=== PATIENT | male | born 1945 | race Caucasian/White ===

== ENCOUNTER 2018-09-28 06:22 | Inpatient (IN) | payer MEDICARE, SELFPAY ==
[2016-10-16 15:37] VITALS: BMI 39.4
--- NOTE | 2018-09-05 23:55 | HP.PCM_ITS ---
History and Physical History and Physical Patient Name: Arnol Hanks : 1945 From: CAROLE POSADAS PA-C DATE OF SURGERY: 09/28/2018 SCHEDULED PROCEDURE: Right Total Hip Arthroplasty HISTORY OF PRESENT ILLNESS: Preoperative history and physical exam was performed on September 05, 2018. This is a 72-year-old male who has been having ongoing pain in his right hip for 1 year. There was no trauma or injury. Patient states he has increased pain with activities of daily living including going up and down stairs, walking, and sitting. He does have start up pain. He has difficult time when shopping. Pain does occasionally wake him at night. Patient has tried conservative measures consisting of rest, heat, elevation with only temporary relief. He has also been through childcare administrator. He has also tried iecy-zqz-vymjadi Tylenol with no significant relief. Patient has been using a cane due to the right hip pain. He denies previous surgeries. Patient does have medical history pertinent for hypertension and previous heart valve replacement in 2015. Patient currently denies chest pain, shortness of breath, fevers chills, recent infections. We are obtaining surgical clearance from his primary care physician and manual training teacher Dr. Lau. After failing conservative measures and discussing treatment options with Dr. Orlando Cruz, the patient would like to proceed with a right total hip arthroplasty. REVIEW OF SYSTEMS: ROS: Const: Denies change in appetite, fever and weight change. CV: Denies chest pain, heart murmur and irregular heartbeat. Resp: Denies cough, pneumonia, shortness of breath, tuberculosis and wheezing. GI: Denies constipation, diarrhea, heartburn, nausea, rectal itching, bloody stools and vomiting. : Denies incontinence. Musculo: Reports gait disturbance and trouble walking, but denies leg swelling, pain and weakness. Skin: Denies Raynaud's, history of shingles and tattoo. Neuro: Reports numbness/tingling but denies ambulatory dysfunction, dizziness and tremor. Psych: Denies anxiety, insomnia and stress. Gonzales/Lymph: Denies anemia, bleeding/bruising tendency and past transfusion. Reviewed, no changes. PAST MEDICAL HISTORY: Advance Care Plan: No Advance Directives Effective Date: 08/29/2018 PMH: Medical Problems: Cancer, High Blood Pressure, Hypercholesterolemia Accidents: Fracture - RT ANKLE Surgical Hx: Colon Resection - (2019) [facility] Heart Valve Replacement - (2015) [facility] RT Ankle Anesthesia Complications: None Assistive Devices: Glasses Reviewed and updated. SOCIAL HISTORY: SH: Marital: .Occupation: Retired.Work Status: Retired.Hand Dominance: Right- handed. Personal Habits: Cigarette Use: Never Smoked Cigarettes.Smokeless Tobacco: Never Used Smokeless Tobacco.E-Cigarette Use: Never used.Alcohol: Denies use.Drug Use: Denies Use.Enjoy Exercising: Daily. Reviewed, no changes. VITALS: Ht: 62.5 Wt: 218lb Wt k.885 BMI: 39.2 BP: 129/94 Pulse: 54 Resp: 18 T: 97.3 T: 36.3C ALLERGIES: No Known Drug Allergy MEDICATIONS: Aspirin 81 mg 1 tab PO daily, Atorvastatin Calcium 40 mg 1 tab PO qhs, Hydrochlorothiazide 25 mg 1/2 tab PO daily, Lisinopril 10 mg 1 tab PO daily, Metoprolol Tartrate 25 mg 1 tab PO bid, Tylenol Extra Strength 500 mg 1 tab PO daily PRE-OP EXAM: General appearance:NORMAL Other: Eyes: Conjunctivae and lids: NORMAL Pupils: ERR Ears, Nose, Mouth, and Throat: NORMAL Other: Inspection of lips, teeth and gums: NORMAL Other: Neck: Examination of neck: no masses noted. Respiratory: Assessment of respiratory effort: NORMAL Other: Auscultation of lungs: clear to auscultation no wheezes, rhonchi or rales. Cardiovascular: Auscultation of heart: regular rate and rhythm, no murmurs, gallops or rubs. Gastrointestinal: Exam of abdomen: soft, nontender, nondistended bowel sounds present. PHYSICAL EXAMINATION: Patient does walk with an antalgic gait. Patient also has bilateral hip manager fitness al rotation with ambulation. Right hip range of motion: Obligatory external rotation with flexion, flexion 50, internal rotation 15, external rotation 20. Pain is increased with internal and external rotation. 4/5 hip strength. Right lower extremity is 3 mm shorter when compared to the left. Sensation intact to light touch. Neurovascularly intact. IMAGING STUDIES: X-rays of the right hip reveal joint space narrowing with subchondral sclerosis, osteophyte formation consistent with severe osteoarthritis with collapse of the femoral head. IMPRESSION: 1. 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 Hypertension 3. Previous heart valve replacement 2014 4. History of colon cancer 5. Hypercholesterolemia PLAN: Dr. Orlando Cruz did discuss and review with the patient all treatment options including surgical versus nonsurgical options. Patient does wish to proceed with the above-stated procedure. Potential risks, benefits, and complications of the procedure were discussed in detail including but not limited to , infection, nerve and blood vessel damage, persistent pain, numbness, tingling, paresthesias, blood clot, pulmonary embolism, and requirement for possible further surgery. The patient expressed full understanding and has no further questions for the doctor. Patient does agree to proceed with the above-stated procedure and has signed the surgery consent form. This dictation was created using voice recognition software. Phonetic and/or grammatical errors may exist.. ___ I have re-examined the patient. There are no clinical changes since date of exam. ___ See progress notes for changes. ___ Dictated on admission Date: Time: Signature:
[2018-09-06 08:19] VITALS: BP 113/75; PULSE 61; RESP 16; TEMP 36.6; O2SAT 96; BMI 38.5
--- NOTE | 2018-09-06 08:43 | SDCEKG_ITS ---
Test Reason : Blood Pressure : / mmHG Vent. Rate : 056 BPM Atrial Rate : 056 BPM P-R Int : 166 ms QRS Dur : 102 ms QT Int : 458 ms P-R-T Axes : 028 -09 036 degrees QTc Int : 441 ms Sinus bradycardia Voltage criteria for left ventricular hypertrophy Abnormal ECG Confirmed by TREV BRUSH ([id number]), publications editor MICHA FERRARO ([id number]) on 09/08/2018 1:37:40 PM Referred By: Orlando Cruz Confirmed By:TREV BRUSH
[2018-09-06 09:51] LABS: Absolute Neutrophil Count 4.6 X10^3/uL (2.0-7.7); Basophil# 0.03 X10^3/uL; Basophil% 0.4 % (0-1); Eosinophil# 0.26 X10^3/uL; Eosinophils% 3.4 % (0-5); Hematocrit 46.1 % (40-54); Hemoglobin 14.4 g/dl (13.0-16.5); Lymphocyte % 25.2 % (19-41); Mean Corp Hgb Conc 31.2 g/gl (32-36); Mean Corpuscular Hgb 28.6 pg (27.0-32.0); Mean Corpuscular Volume 91.7 fL (80-94); Mean Platelet Vol. 10.3 fl (6.2-12.0); Monocyte# 0.76 X10^3/uL; Monocyte% 10.1 % (0-10); Neutrophil # 4.59 X10^3/uL (2.7-7.7); Neutrophil % 60.8 % (47-70); Platelet Count 225 K/mm3 (150-450); Red Blood Count 5.03 M/mm3 (4.6-6.2); White Blood Count 7.6 K/mm3 (4.4-11.0)
[2018-09-06 09:58] LABS: POSITIVE COUNT NO; POSITIVE DIFFERENTIAL NO; POSITIVE MORPHOLOGY NO
[2018-09-06 10:08] LABS: Anion Gap 6 (5-15); BUN 31 mg/dL (7-18); BUN/Creat Ratio 22.3 RATIO (10-20); Chloride 107 mmol/L (98-107); Creatinine, Serum 1.39 mg/dL (0.70-1.30); EST Glomerular Filtration Rate 54 mL/min (>60); Est Glom Filt Rate - Afr Amer 65 mL/min (>60); Glucose 99 mg/dL (74-106); Potassium 4.2 mmol/L (3.5-5.1); Sodium Level 142 mmol/L (136-145)
[2018-09-07 11:17] VITALS: BMI 38.2
[2018-09-28] VITALS (11 sets, daily range): BP systolic 93–122; BP diastolic 56–79; PULSE 68–88; RESP 16–18; TEMP 36.2–37.1; O2SAT 92–100; BMI 38.5
[2018-09-28] MEDS: Acetaminophen 500 MG Tablet 1000 MG PO ×3 (07:08→21:20)
[2018-09-28] MEDS: Gabapentin 600 MG Tablet PO (07:09)
[2018-09-28] MEDS: Scopolamine 1mg/72hr Patch 1 PATCH TRANSDERM. (07:09)
[2018-09-28 07:20] LABS: Bedside Glucose 105 mg/dL (70-110)
[2018-09-28] MEDS: Magnesium Sulfate 4gm/100mL 4 GM/100 ML IV.SOLN. IV (07:27)
[2018-09-28] MEDS: Lactated Ringers 1,000 ML 999 ML IV (07:27)
--- NOTE | 2018-09-28 08:45 | RAD_ITS ---
STUDY: X-RAY - PELVIS AND RIGHT HIP REASON FOR EXAM: Male, 72 years old. Anterior hip replacement. TECHNIQUE: 1 intraoperative fluoroscopic digital spot views of the pelvis and hip. COMPARISON: None. FINDINGS: Partially visualized right metallic hip arthroplasty. The peripheral aspect of the acetabular component is not included. Most of the femoral component of the right metallic hip arthroplasty is not included. The fluoroscopic spot radiograph is centered on the symphysis pubis. No suspicious abnormality of the symphysis pubis, the superior and inferior pubic rami and both ischial tuberosities. RAD/Hip 1 view with Pelvis IMPRESSION: 1. Limited digital spot radiograph centered on the symphysis pubis with partial cut off in the peripheral aspect of the right metallic hip prosthesis. 2. No suspicious acute abnormality. Electronically Signed: Morro Currie MD at 12:45 EDT , Service support ,
[2018-09-28] MEDS: Cefazolin 2 GM in 0.9% Normal Saline 100 ML IV (09:09)
--- NOTE | 2018-09-28 10:47 | PCM.OPRPT ---
Report of Operation Date of Procedure: 09/28/18 Pre-Operative Diagnosis: Right hip primary osteoarthritis Post-Operative Diagnosis: Right hip primary osteoarthritis Surgery/Procedure Performed:: Right hip minimally invasive direct anterior total hip replacement. Description of Surgical Findings:: Stable hip with equal leg lengths special education supervisor: Jessica Jiang Type of Anesthesia:: Spinal Anesthesiologist: Randal Lancaster Special Medications: 2 g Ancef, 1 g TXA at incision, 1 g TXA closure, 10 mg Decadron, joint cocktail (5 mg Duramorph, 30 mL of 0.5% Ropivicaine, 1000 units of epinephrine, 30 mg of Toradol) Specimen's removed: Bony cuts Estimated Blood Loss (mL): 200 Fluids Replaced: 1200 mL crystalloid Description of Procedure: Components used: 1. Accolade 2 [place] femoral stem size 4 127? 2. [place] trident 2 acetabular shell size 54 mm 3. Monica X3 polyethylene E 4. Monica Biolox delta 36mm, +2.5mm femoral head Brief history operative indications: 72 yo m who failed conservative measures for their hip osteoarthritis. X-rays were consistent with osteoarthritis including joint space narrowing, osteophyte formation and subchondral cysts. Total hip replacement was discussed with the patient with risks and benefits including but not limited to blood loss, DVTs, PEs, neurovascular damage, dislocation, general risks of anesthesia including loss of life. Patient demonstrated an understanding medical clearance is obtained the patient was consented for surgery. Procedure: On the date of procedure the patient's r hip was marked in the preoperative area. Patient was then taken back to the operating room where anesthesia assumed control of the C-spine and airway and administered anesthetic. Patient was transferred to the operating table and placed in the supine position. The hips were placed at the break of the bed and a sacral bump was placed. The r lower extremity was then prepped out in a sterile fashion using chlorhexidine while the surgeon scrubbed. The PA was vital in the positioning of the patient. Upon reentering the room the R lower extremity was draped in the standard orthopedic fashion and the incision was marked. A timeout was called and everyone agreed upon the side, the site, the procedure be performed, antibody given, and patient's identity. At this time incision was made through skin, subcutaneous tissue, and fat down to fascia. The fascia was then incised and the TFL was retracted laterally. A retractor was placed on the lateral border of the femoral neck. Attention was directed to the inferior portion of the approach and all crossing vessels were identified and appropriately coagulated. A retractor was then placed on the medial portion of the femoral neck. The anterior capsule was then cleared of all soft tissue and then H shaped capsulotomy was made. The retractors were then placed inside the capsule. The femoral neck was identified and a cleanup cut was made. At this time a power corkscrew was used to remove the femoral head. Attention was then turned toward the acetabulum where the soft tissues were appropriately retracted and the acetabulum was sequentially reamed to 54 mm. A 54 mm cup was then selected and impacted into place. Acetabular liner was impacted into place and locking mechanism was verified. The position of the acetabular cup was then verified under live fluoroscopy. Attention was then turned to the femur. Soft tissue releases on the medial and lateral femoral neck were appropriately done, the leg was externally rotated and lateralized. A Smith retractor was placed medially and proximally to the greater trochanter this allowed appropriate visualization and exposure of the femoral canal. Rongeour was then used to remove excess lateral bone. A canal finder and entry broach were used to open the proximal canal. Once we verified we were down the femoral canal we subsequently broached up to a size 5 femur. The appropriate neck was placed in the previously selected head was trialed with a -5 mm neck. Traction was pulled and the hip was reduced with internal rotation. Once it was appropriately reduced and stability was checked. There was minimal shuck, equal leg lengths and appropriate stability with hyperextension and external rotation as well as with 90? flexion and internal rotation. Fluoroscopy was then also used to verify the position of the components and leg lengths using the contralateral side for comparison. At this point based on malleoli and in fluoroscopy patient had leg length discrepancy. Hip was dislocated trial components were removed we then broached a 4 deeper and placed a 4 stem. We then trialed off for stem and a +2.5 gave us the greatest stability and leg lengths. The trial components were then dislocated the proximal femur was again exposed and the components were removed from the wound. The final components were verified and opened. The wound was copiously irrigated out with normal saline. The acetabulum was checked for any residual debris. The final components were placed and impacted. Traction and internal rotation were again used to reduce the hip. After adequate reduction the hip remained stable with appropriate leg lengths. The final components were once again checked with live fluoroscopy and were found to be satisfactory. The wound was then copiously irrigated with normal saline once more, and hemostasis was obtained. Closure was then done using #1 Vicryl runner to close the fascia. A 2-0 vicryl interuppted sutures were used to close the subcutaneous skin. A 3-0 Monocryl and Steri-Strips were used for final skin closure. A Silverlon dressing was placed. Patient was awakened by anesthesia and transferred to the [facility]. Patient was then transferred to the PACU for recovery. Postoperative plan: Patient will get 24 hours postop antibiotics. Patient will get in-house physical therapy and will be weight-bear as tolerated. Patient will follow up in office in 2 weeks for a wound check and x-rays. Grafts/Implants Used: [place] - Complications No intraoperative complications - Admit VTE Documentation VTE Present on Admission: No VTE Mechan Device Prophylaxis: SCD's, Thigh High CHRISTI Hose VTE Pharm Prophylaxis ordered?: Yes
--- NOTE | 2018-09-28 11:20 | RAD_ITS ---
STUDY: X-RAY - PELVIS AND RIGHT HIP REASON FOR EXAM: Male, 72 years old. Postop right hip arthroplasty. TECHNIQUE: 2 views of the pelvis and hip. COMPARISON: None. FINDINGS: Soft tissue swelling in the right hip with soft tissue air emphysema. This is postoperative. The iliac wings and most of the SI joints are not included. Normal bilateral superior and inferior pubic rami. Normal pubic symphysis. Normal bilateral ischial tuberosities. Right metallic hip arthroplasty. The acetabular and femoral components are in good anatomic alignment. Degenerative narrowing of the left hip joint. Ossific spur in the inferomedial aspect of the left femoral head. RAD/Hip Min 2 Views (Portable) IMPRESSION: 1. Normal right metallic hip arthroplasty. 2. Postoperative swelling with soft tissue air emphysema in the right hip. 3. Moderate degenerative osteoarthrosis of the left hip. Electronically Signed: Morro Currie MD at 12:57 EDT , Service support ,
[2018-09-28] MEDS: Lactated Ringers 1,000 ML 125 ML IV ×2 (12:10→19:20)
[2018-09-28] MEDS: Senna/Docusate Sodium 1 Tablet 2 TABLET PO ×2 (13:19→21:20)
[2018-09-28] MEDS: Famotidine 20 MG Tablet PO (13:19)
--- NOTE | 2018-09-28 13:41 | CON.PCM_ITS ---
Problem List (1) Status post total replacement of right hip Status: Acute (2) Colon cancer Status: Chronic (3) History of coronary artery bypass graft Status: Chronic Comment: RVG to Obtuse marginal Cx (4) History of aortic valve replacement Status: Chronic Comment: 29 mm Xin Snow valve, aortoplasty with bovine pericardial patch. (5) Hyperlipidemia Status: Chronic Qualifiers: Hyperlipidemia type: unspecified Qualified Code(s): E78.5 - Hyperlipidemia, unspecified (6) Atherosclerosis of coronary artery of [place] heart without angina pectoris Status: Chronic Qualifiers: Coronary Disease-Associated Artery/Lesion type: [place] artery Qualified Code(s): I25.10 - Atherosclerotic heart disease of [place] coronary artery without angina pectoris (7) Essential hypertension Status: Chronic Reason for Consult Date of Consultation: 09/28/18 Reason for Consultation: Postoperative medical management. History of Present Illness: The patient is a 72 year old M with past medical history as mentioned above who underwent elective right total hip replacement today and I am seeing this patient in consultation for postoperative medical management. At this time, patient mentioned that his right hip pain is mild, absent in severity, dull aching pain and manageable. He complains of bilateral foot tingling likely because of anesthesia. He denies chest pain or shortness of breath. Denies abdominal pain, nausea vomiting. He denies cough or sputum production. He denies fever or chills. He has history of CAD status post CABG in 2014 and he has been on aspirin, statins, beta-blockers and VINCE inhibitors and he has been stable. He has history of aortic valve replacement with bioprosthetic valve which also has been stable. He has history of recent diagnosis of colon cancer, status post colectomy back on May, at [facility], they were able to take the whole cancer and never received chemotherapy or radiation. At this time, his vital signs are stable. Preoperative routine blood work that was done on September 06, 2018 was remarkable for BUN of 31, creatinine of 1.39, otherwise normal. Past Medical History Past Medical History (Chronic Problems): Chronic Problems (Last Reviewed 09/07/18 @ 12:06 by Anderson Lau MD) Colon cancer (Chronic) 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 Hyperlipidemia (Chronic) Atherosclerosis of coronary artery of [place] heart without angina pectoris (Chronic) Essential hypertension (Chronic) Medical History: Medical History (Last Reviewed 09/07/18 @ 12:06 by Anderson Lau MD) Hyperlipidemia (Chronic) E78.5 Atherosclerosis of coronary artery of [place] heart without angina pectoris (Chronic) I25.10 Essential hypertension (Chronic) I10 Benign prostatic hyperplasia with lower urinary tract symptoms N40.1 Aortic stenosis I35.0 Severe aortic insufficiency I35.1 Allergies No Known Allergies Allergy (Verified 09/07/18 11:23) Home Medications: Ambulatory Orders Medication Instructions Recorded Atorvastatin Calcium [Lipitor] 40 mg PO QHS 10/16/16 lisinopril 10 mg tablet 10 mg PO DAILY 09/05/18 metoprolol tartrate 25 mg tablet 25 mg PO BID 09/05/18 aspirin 81 mg tablet,delayed 81 mg PO BID tab 09/07/18 release hydrochlorothiazide 25 mg tablet 12.5 mg PO DAILY tab 09/07/18 Surgical History: Surgical History (Last Reviewed 09/07/18 @ 12:06 by Anderson Lau MD) History of coronary artery bypass graft (Chronic) Onset Date: 06/14/14 Z95.1 RVG to Obtuse marginal Cx History of aortic valve replacement (Chronic) Onset Date: 06/14/14 Z95.2 29 mm Xin Snow valve, aortoplasty with bovine pericardial patch. History of open reduction and internal fixation (ORIF) procedure Z98.890 right ankle History of partial colectomy Onset Date: ~05/2018 Z90.49 Surgical History: colectomy, coronary bypass surgery Psychiatric History: No pertinent psych hx Lives: Spouse/ Significant Other Smoking Status: Never smoker Alcohol: None Drugs: None - *Family History Paternal Family History: Family History (Last Reviewed 09/07/18 @ 12:06 by Anderson Lau MD) Father Heart disease Brother Heart disease Brother Colon cancer History Items: Heart Disease Sibling Family History: Family History (Last Reviewed 09/07/18 @ 12:06 by Anderson Lau MD) Father Heart disease Brother Heart disease Brother Colon cancer History Items: Heart Disease Review of Systems Constitutional: Denies: Anorexia, Chills, Fever, Weakness Eyes: Denies: Blurred vision, Double vision, Drainage, Redness, Vision Change HEENT: Denies: Difficulty Hearing, Ear Pain, Eye Pain, Nasal Congestion, Sore Throat Cardiovascular: Denies: Chest Pain, Chest Pressure, Chest Tightness, Edema, Heaviness, Palpitations, Syncope Respiratory: Denies: Cough, Pleuritic Pain, Shortness of Breath, Sputum p roduction, Wheezing Gastrointestinal: Denies: Abdominal Pain, Constipation, Diarrhea, Nausea, Vomiting Genitourinary: Denies: Dysuria, Frequency, Hematuria Musculoskeletal: Reports: Joint Pain. Denies: Arm Pain, Back Pain, Foot Pain Skin: Denies: Dryness, Rash Neurological: Denies: Balance problems, Double vision, Change in Speech, Slurred speech, Confusion, Headaches, Incoordination Psychiatric: Denies: Anxiety, Depression Endocrine: Denies: Change in Body Habitus, Polydipsia, Polyuria Patient Problems: Active and Suspected Problems (Last Reviewed 09/07/18 @ 12:06 by Anderson Lau MD) Status post total replacement of right hip (Acute) - Physical Exam General: Alert, Oriented x3, Cooperative, No apparent distress HEENT: Atraumatic, PERRLA, EOMI, Normocephalic Oral: Moist Mucosa, No Gingival or Mucosal Lesions/ Ulcerations Neck: Supple, No JVD, Negative Carotid Bruits, Trachea Midline, Thyroid Normal Size and Texture Lungs: Clear to auscultation, Normal air movement, No rhonchi, No wheeze, No rales, Diminished Cardiovascular: Regular rate, Regular Rhythm, Normal S1, Normal S2, PMI Normal Abdomen: Bowel Sounds Present, Soft, Non Tender, Non-Distended, No Hepato- splenomegaly Extremities: No clubbing, No cyanosis, No edema Skin: No rashes, No breakdown Lymphatic: No Cervical, Supraclavicular, or Inguinal Adenopathy Neurological: Cranial nerves II-XII grossly intact, Motor Exam 5/5 strength throughout Psych/Mental Status: Normal Affect, Appropriate, Alert and oriented to time, place, person, mood and affect Vital Signs Temp Pulse Resp BP Pulse Ox 97.2 F L 79 16 100/67 100 09/28/18 12:32 09/28/18 12:32 09/28/18 12:32 09/28/18 12:32 09/28/18 12:32 Oxygen Flow Rate (L/min) 6 Oxygen Delivery Method Nasal Cannula Weight: 217 lb 13.067 oz Body Mass Index (BMI) 38.5 Intake and Output for Last 24 Hours 09/26/18 09/27/18 09/28/18 23:59 23:59 23:59 Intake Total 1900 / 1900 Balance 1900 / 1900 POC Glucose 09/28/18 07:13 POC Glucose 105 Assessment/Plan All Active Problems (Last Reviewed 09/07/18 @ 12:06 by Anderson Lau MD) Status post total replacement of right hip (Acute) This is a 72 years old male patient underwent elective right total hip replacement today and I am seeing this patient in consultation for postoperative medical management. #1 status post right total hip replacement: This was done for right hip osteoarthritis, postoperative day 0. Patient is on IV cefazolin for perioperative prophylaxis as well as IV fluids. He is on IV morphine and OxyIR PRN for pain. Preoperative routine blood work reviewed as above. Vital signs are stable. Orthopedic surgery is managing. #2 mild renal insufficiency: Unclear if this is acute or chronic. BUN and creatinine was 31 and 1.39 respectively on September 06, 2018. Creatinine was 1.44 on September,. Plan: Gentle IV fluids for hydration, repeat BMP tomorrow morning. #3 recent history of colon cancer status post colectomy: This was diagnosed back on May,, underwent colectomy at [facility] on May,. Did not receive any chemotherapy and radiation, informed that the whole cancer taken out and there was no indication for chemotherapy or radiation. #4 CAD status post CABG: Stable, no acute issues. Continue aspirin, statins, beta-blockers and VINCE inhibitors. #5 status post aortic valve replacement with bioprosthetic valve: Stable. #6 hypertension: Blood pressure stable, continue HCTZ, lisinopril and metoprolol. #7 hyperlipidemia: Continue statins. #9 DVT prophylaxis: Started on aspirin twice daily, SCDs. This note was generated with [employer] software. It may contain incorrect words, spelling, and punctuation that were not noted in checking the note before signing. Code Visit Inpatient E&M: 60134 Init Hosp L2
[2018-09-28] MEDS: Cefazolin 1 GM/50 ML BAG IV (16:50)
[2018-09-28] MEDS: Aspirin 81 MG TAB.CHEW PO (16:50)
[2018-09-28] MEDS: Atorvastatin Calcium 40 MG Tablet PO (21:20)
[2018-09-28] MEDS: Metoprolol Tartrate 25 MG Tablet PO (21:20)
[2018-09-29] MEDS: Cefazolin 1 GM/50 ML BAG IV (01:01)
[2018-09-29 03:09] VITALS: BP 96/57; PULSE 63; RESP 16; TEMP 36.6; O2SAT 95
[2018-09-29] MEDS: Acetaminophen 500 MG Tablet 1000 MG PO (05:56)
[2018-09-29 06:05] LABS: Hemoglobin 12.4 g/dL (13.0-16.5); Mean Corp Hgb Conc 31.8 g/dL (32-36); Mean Corpuscular Hgb 28.7 pg (27.0-32.0); Mean Corpuscular Volume 90.3 fL (80-94); Mean Platelet Vol. 9.9 fl (6.2-12.0); Platelet Count 171 K/mm3 (150-450); RBC Distribution Width CV 12.9 % (11.6-14.6); RBC Distribution Width SD 42.8 fl (35.1-43.9); Red Blood Count 4.32 M/mm3 (4.6-6.2); White Blood Count 14.6 K/mm3 (4.4-11.0)
[2018-09-29 06:31] LABS: Anion Gap 8 (5-15); BUN 34 mg/dL (7-18); BUN/Creat Ratio 23.8 RATIO (10-20); Calcium,Total 8.1 mg/dL (8.5-10.1); Chloride 107 mmol/L (98-107); Creatinine, Serum 1.43 mg/dL (0.70-1.30); EST Glomerular Filtration Rate 52 mL/min (>60); Est Glom Filt Rate - Afr Amer 63 mL/min (>60); Estimated Creatinine Clearance 38.68 ml/min; Glucose 139 mg/dL (74-106); Potassium 4.3 mmol/L (3.5-5.1); Sodium Level 141 mmol/L (136-145)
[2018-09-29 07:56] VITALS: BP 97/57; PULSE 67; RESP 16; TEMP 36.8; O2SAT 94
[2018-09-29] MEDS: Aspirin 81 MG TAB.CHEW PO (08:13)
--- NOTE | 2018-09-29 09:34 | PN.ORTHO_ITS ---
Patient Problems: Active and Suspected Problems (Last Reviewed 09/07/18 @ 12:06 by Anderson Lau MD) Status post total replacement of right hip (Acute) Subjective: The patient was sitting in bedside chair upon examination. Patient denies any chest pain, shortness of breath, dizziness, lightheadedness, nausea or vomiting, or calf pain. Pain is controlled on medications. No adverse overnight events. Overall patient is doing well and has tolerated therapy. Patient has had some lower readings of blood pressure but denies any chest pain, shortness of breath, dizziness lightheadedness. She tolerated physical therapy without any complaints. Objective: Vital signs stable and afebrile. Blood pressure currently 97/57 Patient is able to plantarflex and dorsiflex actively. Sensation is intact to light touch to saphenous, sural, superficial and deep peroneal, and tibial distribution. Dressing is clean dry and intact. Negative Homans bilaterally, negative signs and symptoms of DVT. - Physical Exam General: Alert, Oriented x3, No apparent distress Vital Signs Temp Pulse Resp BP Pulse Ox 98.2 F 67 16 97/57 L 94 09/29/18 07:56 09/29/18 07:56 09/29/18 07:56 09/29/18 07:56 09/29/18 07:56 Oxygen Flow Rate (L/min) 2 Oxygen Delivery Method Room Air Weight: 98.8 kg Body Mass Index (BMI) 38.5 Intake and Output for Last 24 Hours 09/27/18 09/28/18 09/29/18 23:59 23:59 23:59 Intake Total 3071 / 3071 1350 / 1350 Output Total 400 / 400 Balance 3071 / 3071 950 / 950 Laboratory Tests Past 24 Hrs 09/29/18 09/29/18 05:32 05:32 WBC 14.6 H RBC 4.32 L Hgb 12.4 L Hct 39.0 L MCV 90.3 MCH 28.7 MCHC 31.8 L RDW Std Deviation 42.8 RDW Coeff of Cristofer 12.9 Plt Count 171 MPV 9.9 Sodium 141 Potassium 4.3 Chloride 107 Carbon Dioxide 26.0 Anion Gap 8 BUN 34 H Creatinine 1.43 H Estim Creat Clear Calc 38.68 Est GFR (MDRD) Af Amer 63 Est GFR (MDRD) Non-Af 52 L BUN/Creatinine Ratio 23.8 H Glucose 139 H Calcium 8.1 L Medical Necessity - Tobacco Use Smoking Status: Never smoker Assessment/Plan All Active Problems (Last Reviewed 09/07/18 @ 12:06 by Anderson Lau MD) Status post total replacement of right hip (Acute) 1. S/P right total hip arthroplasty POD #1 2. Continue Pain Medications: Tylenol and OxyIR 3. DVT Prophylaxis: Aspirin 81 mg twice daily for 4 weeks postoperatively 4. PT/OT: Weightbearing as tolerated 5. H & H: 12.4/39.0, asymptomatic 6. Reactive leukocytosis: Currently 14.6, afebrile. Patient did receive Decadron intraoperatively 7. Continue postoperative medical management per medicine: We will hold blood pressure medications today and resume his normal medications tomorrow. Patient currently is asymptomatic and has tolerated physical therapy without any chest pain, shortness of breath, dizziness/lightheadedness. 8. Encouraged Incentive Spirometry 9. Disposition: Plan will be for discharge home today. Case was discussed with hospitalist. Prescriptions will be at attached to chart. Patient will follow- up per postop instructions. Case management will discuss with the patient possible home health. Patient has outpatient physical therapy established for October 03, 2018 but there were requesting home health therapy.
--- NOTE | 2018-09-29 09:43 | PN_ITS ---
Patient Problems: Active and Suspected Problems (Last Reviewed 09/07/18 @ 12:06 by Anderson Lau MD) Status post total replacement of right hip (Acute) Subjective: Patient seen and examined. He is postop day 1 right total hip replacement. He has no complaints and was working with physical therapy at time of review. Pain is well controlled. Review of systems is otherwise negative. Labs and vitals reviewed. He was noted to be slightly hypotensive this morning with blood pressure Tracey 97/57. Patient is however completely asymptomatic and says his blood pressure usually runs in the low 100s systolic. Vitals/I&O's: Vital Signs Temp Pulse Resp BP Pulse Ox 98.2 F 67 16 97/57 L 94 09/29/18 07:56 09/29/18 07:56 09/29/18 07:56 09/29/18 07:56 09/29/18 07:56 Oxygen Flow Rate (L/min) 2 Oxygen Delivery Method Room Air Weight: 217 lb 13.067 oz Body Mass Index (BMI) 38.5 Intake and Output for Last 24 Hours 09/27/18 09/28/18 09/29/18 23:59 23:59 23:59 Intake Total 3071 / 3071 1350 / 1350 Output Total 400 / 400 Balance 3071 / 3071 950 / 950 General: Alert, Oriented x3, Cooperative, No apparent distress HEENT: Atraumatic, PERRLA, EOMI, Normocephalic Oral: Moist Mucosa Neck: Supple, No JVD, Negative Carotid Bruits Lungs: Clear to auscultation, Normal air movement, No rhonchi, No wheeze, No rales Cardiovascular: Regular rate, Regular Rhythm, Normal S1, Normal S2, No murmurs Abdomen: Bowel Sounds Present, Soft, Non Tender, Non-Distended, No Hepato-sp lenomegaly Extremities: No clubbing, No cyanosis, No edema, Capillary Refill Less than 3 Seconds Skin: No rashes, No breakdown Musculoskeletal: No Tenderness to Palpation of Joints or Extremities, - - right hip surgical dressing is clean and intact. Lymphatic: No Cervical, Supraclavicular, or Inguinal Adenopathy Neurological: Cranial nerves II-XII grossly intact, Neuro grossly intact, Motor Exam 5/5 strength throughout Psych/Mental Status: Normal Affect, Appropriate, Alert and oriented to time, place, person, mood and affect Laboratory Results 09/29/18 05:32: WBC 14.6 H, RBC 4.32 L, Hgb 12.4 L, Hct 39.0 L, MCV 90.3, MCH 28.7, MCHC 31.8 L, RDW Std Deviation 42.8, RDW Coeff of Cristofer 12.9, Plt Count 171, MPV 9.9 09/29/18 05:32: Sodium 141, Potassium 4.3, Chloride 107, Carbon Dioxide 26.0, Anion Gap 8, BUN 34 H, Creatinine 1.43 H, Estim Creat Clear Calc 38.68, Est GFR (MDRD) Af Amer 63, Est GFR (MDRD) Non-Af 52 L, BUN/Creatinine Ratio 23.8 H, Glucose 139 H, Calcium 8.1 L Current Medications Acetaminophen (Tylenol) 1,000 mg PO Q8 [facility] Last Admin: 09/29/18 05:56 Dose: 1,000 mg Documented by: [facility], [facility]) [facility] Last Admin: 09/29/18 08:13 Dose: 81 mg Documented by: Atorvastatin Calcium (Lipitor) 40 mg PO QHS [facility] Last Admin: 09/28/18 21:20 Dose: 40 mg Documented by: Enteral Nutritional Formula (Ensure Surgery) 237 ml PO TIDCM [facility] Last Admin: 09/29/18 08:12 Dose: Not Given Documented by: Famotidine (Pepcid) 20 mg PO DAILY [facility] Last Admin: 09/28/18 13:19 Dose: 20 mg Documented by: Hydrochlorothiazide () 12.5 mg PO DAILY [facility] Insulin Human Lispro (Humalog Kwikpen (Bkc)) 1 - 6 unit SC Q4H PRN PRN; Protocol PRN Reason: BG>/= 180, SEE PROTOCOL Ketorolac Tromethamine (Toradol) 15 mg IV Q6H PRN PRN PRN Reason: MILD-MOD PAIN (-07/08) Stop: 09/30/18 06:45 Lisinopril (Zestril) 10 mg PO DAILY [facility] Metoprolol Tartrate (Lopressor (Beta Mikaela)) 25 mg PO BID [facility] Last Admin: 09/28/18 21:20 Dose: 25 mg Documented by: Morphine Sulfate () 2 - 4 mg IV Q2H PRN PRN PRN Reason: MOD-SEVERE PAIN (4-10/10) Morphine Sulfate () 2 - 4 mg IV Q2H PRN PRN PRN Reason: MOD-SEVERE PAIN (4-10/10) Ondansetron HCl (Zofran) 4 mg IV Q8H PRN PRN PRN Reason: NAUSEA Oxycodone HCl (Oxyir) 5 - 10 mg PO Q4H PRN PRN PRN Reason: MOD-SEVERE PAIN (4-10/10) Promethazine HCl (Phenergan) 12.5 mg IM Q6H PRN PRN; Protocol PRN Reason: NAUSEA/VOMITING Senna/Docusate Sodium (Senokot-S, Asha-Colace) 2 tablet PO BID [facility] Last Admin: 09/28/18 21:20 Dose: 2 tablet Documented by: Sodium Chloride () 10 - 40 ml IV UD PRN PRN Reason: SALINE FLUSH Medical Necessity - Tobacco Use Smoking Status: Never smoker Assessment/Plan All Active Problems (Last Reviewed 09/07/18 @ 12:06 by Anderson Lau MD) Status post total replacement of right hip (Acute) 1. Right hip arthritis s/p right total hip replacement * today is POD 1. * orthopedics on board * on IV morphine nad oxyIR for pain * PT./OT on board * incentive spirometry * on IV cefazolin per orthopedics * 2. CKD 3: Cr is 1.43, with baseline of ~ 1.2. WIll monitor 3. CAD s/p CABG: stable. on aspirin, statin. Also on metoprolol; this is held today o/a of mild asymptomatic hypotension. 4. History of recent colono cancer s/p colectomy * Was diagnosed in May 2018 and underwent colectomy at [facility] [place]. Did not receive chemoradiation as he was told that anticancer had been resected so he did not need it. * Stable. To follow-up with oncologist and surgeons at [facility] on discharge. * 5. Status post aortic valve replacement: Has a bioprosthetic valve in place: Stable. 6. Hypertension: * We will hold blood pressure medications today on account of mild hypotension though patient is asymptomatic. * On hydrochlorothiazide, lisinopril and metoprolol. * will dc hydrochlorthiazide for now. To continue metoprolol and lisinopril and follow with PCP for medication adjustment as needed. Orthopedics PA informed. 7. Hyperlipidemia: continue Statin. DVT prophylaxis: On aspirin 81 mg twice daily as per orthopedics. Disposition: OK for dc home today, from hospitalist standpoint. Code Visit Inpatient E&M: 78735 Subs Hosp L2
--- NOTE | 2018-09-29 09:45 | DCINST_ITS ---
Discharge Diet: No Restrictions Discharge Activity: May Not Drive - while taking narcotic pain medications. May shower in (days): 1 - Turn dressing away from water Ice area for (Minutes): 20 - Every 1-2 hours while awake Weight Bearing Status: Weight bearing as tolerated Elevate: Operative Extremity Additional Activity Instructions:: Wear elastic stockings for 2 weeks. DO NOT use alcohol with narcotic pain medication. DO NOT make important decisions while taking narcotic medication. If you have problems with taking your medication (rash, itching, nausea, etc.) call the office at once. Call your doctor if your incision/area has: Increased Pain/ Swelling, Increased Redness, Foul Smelling Discharge Call your doctor if you observe: Fever of 101 or Higher Remove Dressing in (days):: 4 - Okay to remove on October 03, 2018 Additional Instructions: Follow with orthopedics postop instructions No driving until 6 weeks postoperatively Hold blood pressure medications this afternoon, can resume normal medications tomorrow. Allergies/Adverse Reactions: Allergies No Known Allergies Allergy (Verified 09/07/18 11:23) Medications to take at Discharge Atorvastatin Calcium [Lipitor] 40 mg PO QHS 10/16/16 lisinopril 10 mg tablet 10 mg PO DAILY 09/05/18 metoprolol tartrate 25 mg tablet 25 mg PO BID 09/05/18 aspirin 81 mg tablet,delayed release 81 mg PO BID tab 09/07/18 hydrochlorothiazide 25 mg tablet 12.5 mg PO DAILY tab 09/07/18 Acetaminophen [Tylenol] 1,000 mg PO Q8 #100 tab 09/29/18 Oxycodone [Oxyir] 5 - 10 mg PO Q4H PRN PRN 4 Days #30 tab 09/29/18 Senna/Docusate Sodium [Senokot-S] 2 tab PO BID #20 tab 09/29/18 The following prescriptions were given: Oxycodone [Oxyir] 5 - 10 mg PO Q4H PRN PRN 4 Days #30 tab PRN Reason: Mod-Severe Pain (-12/08) Prescription Printed Senna/Docusate Sodium [Senokot-S] 2 tab PO BID #20 tab Prescription Printed Acetaminophen [Tylenol] 1,000 mg PO Q8 #100 tab Prescription Printed Primary Care Physician: Rukhsana Mayfield MD [Primary Care Provider] - Test Results: Test results from this visit will be discussed in further detail at your follow- up appointment, if applicable. Please Follow Up With: physical therapy When: 10/03/18 Please Follow Up With: Clemente Longoria PA-C When: 10/12/18 @ 9:00 am
--- NOTE | 2018-09-29 10:30 | CASEMGMT ---
NOLVIA YBARRA Face to Face with patient for initial transition planning/care coordination assessment. NOLVIA YBARRA introduced self and role at [facility]. Patient sitting in bed, alert and oriented. Patient willing to participate in assessment and is able to answer all questions appropriately. Care providers, pharmacy, and demographics verified. Patient wishes to discharge home, and would like [facility]. NOLVIA YBARRA updated patient that he would need to be homebound for [facility] and patient states that he would not be homebound. Patient is agreeable to outpatient therapy at [facility] that has already been setup for Wednesday. Patient states he has no further needs or concerns at this time. CM to follow for discharge planning needs that may arise. PCP: Tran Specialists: Kati Cruz Pharmacy: [facility] Insurance: [employer] [facility] Prescription Benefit: yes Living Will/HPOA: yes, Penelope Hanks LNOK: , daughter Living Arrangements: Patient lives with in ranch style home with no steps to enter the home. Patient was independent prior to surgery Transportation: or daughter DME/HHC: Patient he has shower chair, raised toilet seat, and walker at home. Patient has outpatient therapy at [facility] scheduled for Wednesday10/03/18 Disposition Plan: Patient to discharge home with family support, outpatient therapy, and follow-up plans in place. Ning NUÑEZ, RN, CM
[2018-09-29 10:51] VITALS: BP 103/59; PULSE 61
[2018-09-29] MEDS: Senna/Docusate Sodium 1 Tablet 2 TABLET PO (10:52)
[2018-09-29] MEDS: Famotidine 20 MG Tablet PO (10:52)
[2018-09-29 13:33] VITALS: BP 111/59; PULSE 63; RESP 16; TEMP 36.6; O2SAT 93
== END 2018-09-29 13:55 | disposition home health service (06) | DRG 470 ==
LOC: ACINP 09:22 → MS3 09:28
PROVIDERS: Admitting Provider Specialist; Family Provider Internal Medicine; PCP Internal Medicine; Referring Provider Specialist; Visit Provider Student in an Organized Health Care Education/Training Program
PROC: 0SR90JZ Replacement of Right Hip Joint with Synthetic Substitute, Open Approach (ICD-10-PCS; CPT 27284; principal; 2018-09-28 08:20)
DX: M16.11 Unilateral primary osteoarthritis, right hip (principal); I12.9 Hypertensive chronic kidney disease with stage 1 through stage 4 chronic kidney disease, or unspecified chronic kidney disease; N18.3 Chronic kidney disease, stage 3 (moderate); I25.10 Atherosclerotic heart disease of native coronary artery without angina pectoris; I35.2 Nonrheumatic aortic (valve) stenosis with insufficiency; E78.5 Hyperlipidemia, unspecified; I95.9 Hypotension, unspecified; N40.1 Benign prostatic hyperplasia with lower urinary tract symptoms; Z79.82 Long term (current) use of aspirin; Z79.899 Other long term (current) drug therapy; Z85.038 Personal history of other malignant neoplasm of large intestine; Z95.3 Presence of xenogenic heart valve; Z95.1 Presence of aortocoronary bypass graft; Z90.49 Acquired absence of other specified parts of digestive tract
CPT/HCPCS: 36415; 73501; 73502; 76000; 80048; 82962; 85025; 85027; 87081; 93005; 97116; 97162; 97166; 97530; 99251; C1776; J7120; G0463

== ENCOUNTER → 2019-04-19 05:25 | Outpatient (CLI) | payer MEDICARE, SELFPAY ==
[2019-03-29 13:07] VITALS: BMI 40.4
--- NOTE | 2019-04-19 05:26 | ECHOCS_ITS ---
Reason For Study: Dizziness, s/p AVR, CABG Procedure This was a 2D Doppler, Color Flow transthoracic echocardiogram. The study was technically difficult. Contrast injection was performed. Exam performed in department. Left Ventricle Normal LV size. The estimated ejection fraction is 65 %. Unable to assess diastolic dysfunction. No regional wall motion abnormalities noted. Right Ventricle Normal RV size. Normal systolic function. Atria Normal left atrium. Normal right atrium. No doppler evidence for ASD. Mitral Valve There is moderate mitral annular calcification. There is no mitral valve stenosis. No mitral valve insufficiency. Tricuspid Valve There is no tricuspid stenosis. Trivial tricuspid valve insufficiency. Pulmonary artery systolic pressure is 25-30 mmHg. Aortic Valve The aortic valve is not well visualized. There is no aortic stenosis. No aortic valve insufficiency. Pulmonic Valve There is no pulmonic valvular stenosis. No pulmonic valve insufficiency identified. Great Vessels Normal aortic root. Pericardium/Pleural No pericardial effusion. Medication Diluted definity 3ml given slow IV push to enhance endocardial definition. MMode/2D Measurements & Calculations LVIDd: 4.2 cm IVSd: 1.4 cm LVOT diam: 2.0 cm LVIDs: 2.8 cm LVPWd: 1.3 cm RVDd: 4.1 cm FS: 32.5 % LVOT area: 3.2 cm2 Ao root diam: 3.8 cm LAV(MOD-bp): 38.0 ml LA A4 area: 15.4 cm2 LAV(MOD-bp) Indexed: 18.7 ml/m2 LAV(MOD-sp2): 34.2 ml LAV(MOD-sp4): 33.6 ml LA dimension(2D): 4.0 cm RA A4 area: 13.4 cm2 Doppler Measurements & Calculations MV E max dominic: 64.6 cm/sec Lat Peak E' Dominic: 5.7 cm/sec Med Peak E' Dominic: 4.1 cm/sec MV A max dominic: 87.3 cm/sec E/E' lat: 11.4 E/E' med: 15.6 MV E/A: 0.74 Ao V2 max: 157.3 cm/sec LV V1 max: 80.4 cm/sec SV(LVOT): 51.8 ml Ao max P.9 mmHg LV V1 max P.6 mmHg Ao V2 mean: 102.7 cm/sec LV V1 mean P.5 mmHg Ao mean P.9 mmHg LV V1 mean: 60.1 cm/sec Ao V2 VTI: 31.0 cm LV V1 VTI: 16.1 cm JUVENAL(I,D): 1.7 cm2 JUVENAL(V,D): 1.6 cm2 PA V2 max: 74.0 cm/sec Interpretation Summary The study was technically difficult. Contrast injection was performed. The estimated ejection fraction is 65 %. Unable to assess diastolic dysfunction. Trivial tricuspid valve insufficiency. The study was technically difficult. Contrast injection was performed. Ordering Physician: Anderson Lau Referring Physician: Rukhsana Mayfield Performed By: Kristen Barragan, RDCS, RVT
--- NOTE | 2019-04-20 11:19 | STRESSREP ---
Stress Test Report Date: 04/20/2019 Procedure: Exercise tolerance test/imaging study Indications: Dizziness Consent: Per the patient Procedure: The patient exercised on a Mo protocol for 6 minutes achieving a peak heart rate of 125 bpm (83 % predicted maximal heart rate) with a peak blood pressure 174/84 mmHg and a peak MET capacity of 7 METs. The baseline ECG demonstrated [normal sinus rhythm, nonspecific ST-T changes, occasional PVCs]. The peak exercise ECG demonstrated sinus tachycardia, occasional PVCs, about [address] depression in lead II. EKG during recovery revealed no significant ischemic changes [There were no significant cardiac dysrhythmias pretest, during exercise, or recovery]. The functional capacity was considered normal for age. There was [no complaint of chest discomfort during exercise or recovery]. The examination was discontinued secondary to dyspnea. Impression: 1. Technically adequate (percent predicted maximal heart rate greater than 85%) exercise tolerance test 2. Stress test is negative for exercise-induced EKG changes of ischemia 3. The test test is negative for exercise-induced chest pain 4. Functional capacity is normal for age 5. Nuclear images pending Myocardial perfusion imaging study: Technique: The patient was injected with 15 mCi of technetium 99m Cardiolite and subsequently rest SPECT Cardiolite nuclear imaging was obtained in the horizontal long, vertical long, and short axis views. The patient exercised on a Mo protocol. Please see above for details. The patient was injected with 45 mCi of technetium 99m Cardiolite and subsequently stress SPECT Cardiolite nuclear imaging was obtained in the horizontal long, vertical long, and short axis views. A gated Cardiolite study at peak stress was obtained. Interpretation: Rest and stress SPECT Cardiolite nuclear imaging status post realignment, normalization, and attenuation correction, demonstrates overall normal myocardial radioisotope uptake. Gating was not done. EF could not be estimated. Impression: 1. There is no evidence of significant ischemia or infarction. 2. Gating was not performed and EF cannot be estimated. This note was generated with [employer] software. It may contain incorrect words, spelling, and punctuation that were not noted in checking the note before signing.
== END ==
PROVIDERS: PCP Internal Medicine; Referring Provider Specialist; Visit Provider Specialist
DX: I25.10 Atherosclerotic heart disease of native coronary artery without angina pectoris (principal); I10 Essential (primary) hypertension; R42 Dizziness and giddiness; Z95.1 Presence of aortocoronary bypass graft
CPT/HCPCS: 78452; 93017; 93306; A9500; Q9957; A4216; C8929

== ENCOUNTER → 2019-04-26 13:49 | Outpatient (CLI) | payer MEDICARE, SELFPAY ==
[2019-04-26 13:07] VITALS: BMI 41.4
[2019-04-26 15:06] LABS: Absolute Neutrophil Count 4.8 X10^3/uL (2.0-7.7); Basophil# 0.06 X10^3/uL; Basophil% 0.7 % (0-1); Eosinophil# 0.25 X10^3/uL; Eosinophils% 3.1 % (0-5); Hematocrit 49.6 % (40-54); Hemoglobin 15.6 g/dL (13.0-16.5); Lymphocyte % 25.7 % (19-41); Mean Corp Hgb Conc 31.5 g/dL (32-36); Mean Corpuscular Hgb 28.6 pg (27.0-32.0); Mean Corpuscular Volume 90.8 fL (80-94); Mean Platelet Vol. 10.4 fl (6.2-12.0); Monocyte# 0.91 X10^3/uL; Monocyte% 11.1 % (0-10); NRBC Flagged by Analyzer 0 % (0-5); Neutrophil # 4.84 X10^3/uL (2.7-7.7); Neutrophil % 59.2 % (47-70); Platelet Count 187 K/mm3 (150-450); RBC Distribution Width CV 13.4 % (11.6-14.6); RBC Distribution Width SD 44.7 fl (35.1-43.9); Red Blood Count 5.46 M/mm3 (4.6-6.2); White Blood Count 8.2 K/mm3 (4.4-11.0)
== END ==
PROVIDERS: PCP Internal Medicine; Referring Provider Specialist; Visit Provider Specialist
DX: R06.09 Other forms of dyspnea (principal)
CPT/HCPCS: 36415; 84443; 85025

== ENCOUNTER 2019-12-20 09:38 | Emergency (ER) | payer MEDICARE, SELFPAY ==
[2019-04-26 13:07] VITALS: BMI 41.4
[2019-12-20 09:39] VITALS: BP 148/100; PULSE 62; RESP 17; TEMP 36.5; O2SAT 96; BMI 44.2
--- NOTE | 2019-12-20 10:32 | ED.VISSUMM ---
- ER Visit Summary Date of Service: 12/20/19 Chief Complaint: Atraumatic right ankle pain for 3 weeks History of Present Illness: The patient is a 74 M Struve hypertension, valvular heart disease prior prostate cancer and prior colon cancer. Patient in had a bad injury to his right ankle where he needed 3 screws placed for ankle fracture. 2 of the screws were eventually removed one remains in place. He denies any new fall or new trauma. He denies any redness, fever or chills. Just states of the last 3 weeks he has had increased pain to his right ankle. A year ago he had his right hip replaced and states that has been going well. Physical Examination: Older male presents with distress vital signs stable afebrile. H EENT exam unremarkable. Lungs are clear. Heart regular rhythm no murmur. Abdomen soft nontender. Normal bowel sounds no peritoneal signs. Patient is moving all 4 extremities. Neurovascularly intact. Calves are nontender without edema. Right ankle is mildly swollen. DP pulse intact. Is able to wiggle his toes. Dorsi plantarflexion intact. No cellulitis. No signs of septic joint. Achilles tendon is intact. Right calf nontender. He is able to flex and extend his right knee hip and ankle. No gross bony deformity. Neurologically is awake and alert with no focal motor deficits. Test Results: Right ankle x-ray 3 views read by myself the photovoltaic solar cell designer shows a orthopedic screw in place. Significant degenerative arthritis of the joint but no acute fracture or dislocation. Mild soft tissue swelling. Emergency Department Course and Treatment: Acute on chronic and right ankle pain. But the prior injury 20 to 30 years ago and surgery. No signs of infection. Treatment Plan: Ice and elevate. Tylenol for pain. Limited Motrin for swelling. Follow-up with PCP. Disposition: dc Impression: Acute right ankle pain and swelling secondary to degenerative arthritis History of prior ankle fracture with orthopedic repair This note was generated with [employer] dictation software. It may contain incorrect words, spelling, and punctuation that were not noted in review of the chart prior to signing ED Disposition - Plan for ED Patient: Referrals: Rukhsana Mayfield MD [Primary Care Provider] -
--- NOTE | 2019-12-20 10:40 | RAD_ITS ---
STUDY: X-RAY - RIGHT ANKLE REASON FOR EXAM: Male, 74 years old. INCREASING RT ANKLE PAIN X 2-3 WKS, INJURY/SURGERY 30 YEARS AGO TECHNIQUE: 3 view(s) of the ankle. COMPARISON: None. FINDINGS: Screw fixation of the distal tibia. Normal medial and lateral malleoli. Joint space narrowing and degenerative changes of the tibiotalar joint. Small plantar spur. The visualized subtalar, talonavicular, calcaneocuboid and tarsal articulations are normal. Mild soft tissue swelling. RAD/Ankle min 3 Views IMPRESSION: Status post screw fixation of the distal tibia with degenerative changes and joint space narrowing of the distal tibial talar joint. Mild degree of soft tissue swelling. Electronically Signed: Leonard Hollingsworth, at 10:56 EDT , Service support ,
--- NOTE | 2019-12-20 12:23 | ED.DEP ---
ED Disposition - Plan for ED Patient: Disposition: Home or Assisted Living Instructions: ED Osteoarthritis Referrals: Rukhsana Mayfield MD [Primary Care Provider] - As soon as possible Additional Instructions: Your pain is secondary to arthritis in your ankle. Ice and elevate it. Tylenol for pain. Limited Motrin ibuprofen twice a day to help with inflammation. Return emergency department if fever or redness. Follow-up with your orthopedic doctor Dr. Jason Cruz for further evaluation and discussion of other treatment options.
== END 2019-12-20 12:59 | disposition home or self-care (01) ==
PROVIDERS: Emergency Provider Emergency Medicine; PCP Internal Medicine
DX: M19.071 Primary osteoarthritis, right ankle and foot (principal); G89.29 Other chronic pain; I10 Essential (primary) hypertension; Z79.82 Long term (current) use of aspirin; Z79.899 Other long term (current) drug therapy; Z85.46 Personal history of malignant neoplasm of prostate; Z85.038 Personal history of other malignant neoplasm of large intestine; Z96.641 Presence of right artificial hip joint
CPT/HCPCS: 73610; 99282

== ENCOUNTER 2020-03-15 17:35 | Inpatient (IN) | payer MEDICARE, SELFPAY ==
[2020-01-30 13:07] VITALS: BMI 45.5
[2020-03-15] VITALS (12 sets, daily range): BP systolic 122–158; BP diastolic 76–104; PULSE 46–92; RESP 16–24; TEMP 36.6–36.9; O2SAT 95–100; BMI 45.3; BMI 110.8; BMI 44.6
--- NOTE | 2020-03-15 17:45 | EKG12_ITS ---
Test Reason : SOB Blood Pressure : / mmHG Vent. Rate : 074 BPM Atrial Rate : 074 BPM P-R Int : 140 ms QRS Dur : 092 ms QT Int : 434 ms P-R-T Axes : -09 -14 113 degrees QTc Int : 481 ms Sinus rhythm with frequent Premature ventricular complexes in a pattern of bigeminy Voltage criteria for left ventricular hypertrophy T wave abnormality, consider lateral ischemia Abnormal ECG Confirmed by LOS CALDERA, XIOMARA ([id number]), editor department MARQUES JUDGE ([id number]) on 03/20/2020 6:42:09 AM Referred By: DR PRINCE Confirmed By:XIOMARA MADISON MD
[2020-03-15 18:46] LABS: Absolute Lymphocyte Count 1.95 X10^3/uL (0.83-4.51); Absolute Neutrophil Count 4.4 X10^3/uL (2.0-7.7); Basophil# 0.04 X10^3/uL; Basophil% 0.5 % (0-1); Eosinophil# 0.21 X10^3/uL; Eosinophils% 2.8 % (0-5); Hematocrit 50.3 % (40-54); Hemoglobin 16.2 g/dL (13.0-16.5); Lymphocyte # 1.95 X10^3/ul (4.0); Mean Corp Hgb Conc 32.2 g/dL (32-36); Mean Corpuscular Hgb 30.3 pg (27.0-32.0); Mean Corpuscular Volume 94.2 fL (80-94); Mean Platelet Vol. 10.4 fl (6.2-12.0); Monocyte# 0.89 X10^3/uL; Monocyte% 11.9 % (0-10); NRBC Flagged by Analyzer 0 % (0-5); Neutrophil # 4.37 X10^3/uL (2.7-7.7); Neutrophil % 58.4 % (47-70); Platelet Count 185 K/mm3 (150-450); RBC Distribution Width CV 12.7 % (11.6-14.6); RBC Distribution Width SD 43.6 fl (35.1-43.9); Red Blood Count 5.34 M/mm3 (4.6-6.2); White Blood Count 7.5 K/mm3 (4.4-11.0)
--- NOTE | 2020-03-15 19:00 | RAD_ITS ---
STUDY: X-RAY CHEST REASON FOR EXAM: Male, 74 years old. sob x 1 month TECHNIQUE: Single AP portable view of the chest. COMPARISON: 10/16/2016. FINDINGS: The lungs are clear and expanded. There is no demonstrated pleural abnormality. Normal size heart. Sternotomy wires are present. Normal mediastinum and charlie. Normal visualized pulmonary arteries. Normal visualized aortic arch and descending thoracic aorta. Normal visualized thoracic spine. Normal visualized ribs, clavicles, and shoulders. There is no demonstrated abnormality of the visualized soft tissue structures of the upper abdomen. RAD/Chest 1 View (Portable) IMPRESSION: Normal x-ray examination of the chest. Electronically Signed: Rahel Dobbs MD at 19:37 EST Tel , Service support ,
[2020-03-15 19:26] LABS: Anion Gap 3 (5-15); BUN 30 mg/dL (7-18); BUN/Creat Ratio 22.6 RATIO (10-20); Chloride 113 mmol/L (98-107); Creatinine, Serum 1.33 mg/dL (0.70-1.30); EST Glomerular Filtration Rate 56 mL/min (>60); Est Glom Filt Rate - Afr Amer 68 mL/min (>60); Estimated Creatinine Clearance 38.77 ml/min; Glucose 81 mg/dL (74-106); Potassium 4.5 mmol/L (3.5-5.1); Sodium Level 142 mmol/L (136-145); Thyroid Stim Hormone (TSH) 2.34 uIU/mL (0.358-3.74)
--- NOTE | 2020-03-15 20:40 | ED.DCSUM_ITS ---
- ER Visit Summary Date of Service: 03/15/20 Chief Complaint: Shortness of breath History of Present Illness: The patient is a [address] Mayfield and Dr. Lau. He reports that he has a history of an aortic valve replacement is not on anticoagulants. He has shortness of breath began 2 to 3 weeks ago. Severe when he exerts himself and mild at rest. He denies any chest pain. No fever, chills, or cough. He denies any possible exposure to Covid. [place] Physical Examination: Vitals: Stable. Afebrile. General: Well-nourished and well-developed. Head: Normocephalic atraumatic. Neck: Supple, no lymphadenopathy. No JVD. Nontender. Cardiovascular: Regular rhythm with a 2 out of 6 systolic murmur. Respiratory: No respiratory distress. Clear to auscultation bilaterally. Abdominal: Soft, nontender, nondistended, normal bowel sounds. No guarding, rebound, or peritoneal signs. Back: Nontender. Extremities: Nontender, no edema. Skin: Normal color, no rash. Neurologic: Alert and oriented ?3. Cranial nerves II through XII are intact. Normal strength and sensation. Psych: Normal affect. Test Results: EKG shows ventricular bigeminy at a rate of 74. Nonspecific ST changes. This is a change from August 2018. Troponin is 0.029. TSH is 2.34. Chem-7 shows a chloride of 113, BUN 30, creatinine 1.33. CBC shows monocytes of 12. Clinical Impression(s) from Imaging Studies Chest X-Ray 03/15/20 19:00 IMPRESSION: Normal x-ray examination of the chest. Electronically Signed: Rahel Dobbs MD at 19:37 EST Tel , Service support , Emergency Department Course and Treatment: Patient was placed on 2 L of oxygen. He was given aspirin p.o. He is resting comfortably. Treatment Plan: Patient has exertional chest pain and is in ventricular bigeminy. He was discussed with Dr. Hendrickson and will be admitted for further evaluation and treatment. Disposition: Admitted in improved condition. Impression: 1. Dyspnea on exertion. 2. Ventricular bigeminy. This note was generated with [email or web address] dictation software. It may contain incorrect words, spelling, and punctuation that were not noted in review of the chart prior to signing ED Disposition - Plan for ED Patient: Referrals: Rukhsana Mayfield MD [Primary Care Provider] -
[2020-03-15] MEDS: Aspirin 81 MG TAB.CHEW 324 MG PO (20:48)
--- NOTE | 2020-03-15 21:14 | HP.PCM_ITS ---
Problem List (1) PVC (premature ventricular contraction) Status: Acute (2) Shortness of breath Status: Acute (3) Colon cancer Status: Chronic (4) History of coronary artery bypass graft Status: Chronic Comment: RVG to Obtuse marginal Cx (5) History of aortic valve replacement Status: Chronic Comment: 29 mm Xin Snow valve, aortoplasty with bovine pericardial patch. 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 Associated with his symptoms is paroxysmal nocturnal dyspnea. He uses 1 pillow on attempt to sleep and this has not changed. He denies any weight changes or swelling. His EKG at emergency department showed bigeminy. Past Medical History Past Medical History (Chronic Problems): Chronic Problems (Last Reviewed 03/16/20 @ 02:[address] Jez Hendrickson MD) Colon cancer (Chronic) 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 Hyperlipidemia (Chronic) Atherosclerosis of coronary artery of circle heart without angina pectoris (Chronic) Essential hypertension (Chronic) Medical History: Medical History (Last Reviewed 03/16/20 @ 08:[address] Jez Hendrickson MD) Hyperlipidemia (Chronic) E78.5 Atherosclerosis of coronary artery of circle heart without angina pectoris (Chronic) I25.10 Essential hypertension (Chronic) I10 Benign prostatic hyperplasia with lower urinary tract symptoms N40.1 Aortic stenosis I35.0 Severe aortic insufficiency I35.1 Allergies No Known Allergies Allergy (Verified 03/15/20 17:37) Home Medications: Ambulatory Orders Medication Instructions Recorded Atorvastatin Calcium [Lipitor] 40 mg PO QHS 10/16/16 aspirin 81 mg tablet,delayed 81 mg PO BID tab 09/07/18 release lisinopril 20 mg tablet 10 mg PO DAILY tab 04/26/19 acetaminophen 500 mg tablet 1,000 mg PO Q8 PRN tab 07/25/19 metoprolol tartrate 50 mg tablet 50 mg PO BID #60 tab 01/30/20 Surgical History: Surgical History (Last Reviewed 03/16/20 @ 08:[address] Jez Hendrickson MD) History of coronary artery bypass graft (Chronic) Onset Date: 06/14/14 Z95.1 RVG to Obtuse marginal Cx History of aortic valve replacement (Chronic) Onset Date: 06/14/14 Z95.2 29 mm Xin Snow valve, aortoplasty with bovine pericardial patch. History of right hip replacement Onset Date: 09/28/18 Z96.641 History of open reduction and internal fixation (ORIF) procedure Z98.890 right ankle History of partial colectomy Onset Date: ~05/2018 Z90.49 Surgical History: colectomy, coronary bypass surgery Psychiatric History: No pertinent psych hx Smoking Status: Never smoker - *Family History Paternal Family History: Family History (Last Reviewed 03/16/20 @ 08:[address] Jez Hendrickson MD) Father Heart disease Brother Heart disease Brother Colon cancer History Items: Heart Disease Sibling Family History: Family History (Last Reviewed 03/16/20 @ 08:[address] Jez Hendrickson MD) Father Heart disease Brother Heart disease Brother Colon cancer History Items: Heart Disease Review of Systems Constitutional: Denies: Chills, Fever, Weight Change HEENT: Denies: Head Aches, Sinus Congestion, Sinus Drainage Cardiovascular: Reports: Paroxysmal Noc. Dyspnea. Denies: Chest Pain, Palpitations Respiratory: Reports: Shortness of Breath. Denies: Cough, Sputum production Gastrointestinal: Denies: Abdominal Pain, Nausea, Vomiting Genitourinary: Denies: Dysuria Musculoskeletal: Denies: Joint Pain, Joint Tenderness Skin: Denies: Rash, Wounds Neurological: Denies: Numbness, Tingling, Focal weakness Psychiatric: Denies: Anxiety, Depression, Homicidal Ideations, Suicidal Ideations Hematologic/ Lymphatic: Denies: Easy Bruising, Easy Bleeding VTE Information - Inpt Only VTE Present on Admission: No VTE Mechan Device Prophylaxis: SCD's VTE Pharm Prophylaxis ordered?: No Patient Problems: Active and Suspected Problems (Last Reviewed 03/16/20 @ 02:[address] Jez Hendrickson MD) PVC (premature ventricular contraction) (Acute) Shortness of breath (Acute) - Physical Exam Vitals/I&O's: Vital Signs Temp Pulse Resp BP Pulse Ox 98.4 F 92 22 H 122/79 H 96 03/15/20 17:35 03/15/20 20:49 03/15/20 20:49 03/15/20 20:49 03/15/20 20:49 Oxygen Delivery Method Room Air Weight: 112.491 kg Body Mass Index (BMI) 45.3 General: Alert, Oriented x3, Cooperative HEENT: Atraumatic, PERRLA, EOMI, Normocephalic Neck: Supple, No JVD, Negative Carotid Bruits Lungs: Clear to auscultation, Normal air movement Cardiovascular: Regular rate, No murmurs Abdomen: Bowel Sounds Present, Soft, Non Tender Extremities: No edema, Capillary Refill Less than 3 Seconds Skin: No rashes, No breakdown Musculoskeletal: No Tenderness to Palpation of Joints or Extremities Neurological: Cranial nerves II-XII grossly intact Psych/Mental Status: Normal Affect, Appropriate Laboratory Results 03/15/20 18:40: WBC 7.5, RBC 5.34, Hgb 16.2, Hct 50.3, MCV 94.2 H, MCH 30.3, MCHC 32.2, RDW Std Deviation 43.6, RDW Coeff of Cristofer 12.7, Plt Count 185, MPV 10.4, Immature Gran % (Auto) 0.400, Neut % (Auto) 58.4, Lymph % (Auto) 26.0, Wetzel % (Auto) 11.9 H, Eos % (Auto) 2.8, Baso % (Auto) 0.5, Absolute Neuts (auto) 4.4, Absolute Lymphs (auto) 1.95, Nucleated RBC % 0 03/15/20 18:40: Sodium 142, Potassium 4.5, Chloride 113 H, Carbon Dioxide 26.0, Anion Gap 3 L, BUN 30 H, Creatinine 1.33 H, Estim Creat Clear Calc 38.77, Est GFR (MDRD) Af Amer 68, Est GFR (MDRD) Non-Af 56 L, BUN/Creatinine Ratio 22.6 H, Glucose 81, Calcium 9.0, Troponin I 0.029, TSH 2.34 Assessment/Plan All Active Problems (Last Reviewed 03/16/20 @ 02:[address] Jez Hendrickson MD) PVC (premature ventricular contraction) (Acute) Shortness of breath (Acute) The patient is a 74 year old M with a significant history of CAD status post CABG; and bovine aortic valve replacement who presents emergency department with a 3-week history of persistent shortness of breath with mild exertion; paroxysmal nocturnal dyspnea and found to have a bigeminy. Dyspnea on exertion and bigeminy We will get an echocardiogram. A treadmill stress test was offered but patient does not think he can run on a treadmill. Will change to a chemical stress test. Trend troponin. Check magnesium level. Placed on telemetry. Hypertension Blood pressure is not within goal Lisinopril and metoprolol continued. Hold metoprolol in the morning of stress test. Trend blood pressure and adjust blood pressure medications. DVT prophylaxis SCD in the setting of cardiac work-up. OBSV E&M: 94595 Initial observation care L2
--- NOTE | 2020-03-15 23:40 | ECHOCS_ITS ---
Version 2 Reason For Study: DYSPNEA/SOB Procedure This was a 2D Doppler, Color Flow transthoracic echocardiogram. The study was technically difficult. Contrast injection was performed. Due to body habitus. Exam performed portable in patient room. Left Ventricle Based upon the 2D echocardiographic and contrast enhanced images obtained there appears to be grossly normal left ventricular size, wall motion, and systolic function. The estimated ejection fraction is 65 %. Unable to assess diastolic dysfunction. Right Ventricle Based upon the 2D echocardiographic and contrast enhanced images obtained there appears to be grossly normal right ventricular size and systolic function. Atria The left atrium is mildly enlarged. Normal right atrium. No doppler evidence for ASD. Mitral Valve There is moderate mitral annular calcification. Extension of the mitral annular calcification onto the posterior mitral valve leaflets. Tricuspid Valve The tricuspid valve is not well visualized. Trivial tricuspid valve insufficiency. Unable to estimate RV systolic pressure/pulmonary artery pressure due to technically difficult study. Aortic Valve The aortic valve apparatus is not well visualized, however, based upon the 2D echocardiographic images obtained there appears to be a stable bioprosthetic aortic valve present. Pulmonic Valve The pulmonic valve is not well visualized. Trivial pulmonic valve insufficiency. Great Vessels The aortic root is not well visualized. Pericardium/Pleural No pericardial effusion. Medication Diluted definity 5.0ml given slow IV push to enhance endocardial definition. MMode/2D Measurements & Calculations LVOT diam: 2.0 cm LAV(MOD-bp): 108.1 ml LA A4 area: 22.5 cm2 LVOT area: 3.3 cm2 LAV(MOD-bp) Indexed: 51.9 ml/m2 LAV(MOD-sp2): 98.7 ml LAV(MOD-sp4): 80.2 ml LA dimension(2D): 4.6 cm Doppler Measurements & Calculations MV E max yue: 63.0 cm/sec Ao V2 max: 178.2 cm/sec LV V1 max: 120.6 cm/sec MV A max yue: 87.6 cm/sec Ao max P.9 mmHg LV V1 max P.8 mmHg MV E/A: 0.72 Ao V2 mean: 114.0 cm/sec LV V1 mean P.9 mmHg Ao mean P.8 mmHg LV V1 mean: 81.2 cm/sec Ao V2 VTI: 32.6 cm LV V1 VTI: 22.9 cm JUVENAL(I,D): 2.3 cm2 JUVENAL(V,D): 2.2 cm2 SV(LVOT): 74.9 ml PA V2 max: 79.9 cm/sec Interpretation Summary The study was technically difficult. Contrast injection was performed. Based upon the 2D echocardiographic and contrast enhanced images obtained there appears to be grossly normal left ventricular size, wall motion, and systolic function. The estimated ejection fraction is 65 %. The left atrium is mildly enlarged. There is moderate mitral annular calcification. Extension of the mitral annular calcification onto the posterior mitral valve leaflets. Trivial tricuspid valve insufficiency. The aortic valve apparatus is not well visualized, however, based upon the 2D echocardiographic images obtained there appears to be a stable bioprosthetic aortic valve present. Trivial pulmonic valve insufficiency. Unable to estimate RV systolic pressure/pulmonary artery pressure due to technically difficult study. Unable to assess diastolic dysfunction. Ordering Physician: Jez Hednrickson Referring Physician: Rukhsana Mayfield Performed By: Keesha Murdock, MARTIN, RVT
[2020-03-15] MEDS: Atorvastatin Calcium 40 MG Tablet PO (23:55)
[2020-03-15] MEDS: Metoprolol Tartrate 50 MG Tablet PO (23:55)
[2020-03-16] VITALS (12 sets, daily range): BP systolic 115–127; BP diastolic 57–94; PULSE 55–79; RESP 15–20; TEMP 36.1–36.9; O2SAT 92–97
[2020-03-16 04:34] LABS: Magnesium 2.2 mg/dL (1.6-2.6)
[2020-03-16 04:43] LABS: Thyroid Stim Hormone (TSH) 2.64 uIU/mL (0.358-3.74)
[2020-03-16] MEDS: Metoprolol Tartrate 50 MG Tablet PO ×2 (10:49→20:40)
[2020-03-16] MEDS: Aspirin E.C. 81 MG Tablet PO ×2 (10:49→20:40)
[2020-03-16] MEDS: Lisinopril 10 MG Tablet PO (10:50)
--- NOTE | 2020-03-16 11:31 | STRESSREP ---
Stress Test Report Date: 03-16-2020 Procedure: Pharmacologic stress nuclear imaging study Indications: Shortness of breath/dyspnea on exertion; CAD; CABG; status post AVR; ventricular ectopy Consent: Per the patient Procedure: The patient underwent pharmacologic (Regadenoson) evaluation with a peak heart rate of 91 beats per minute (61%predicted maximal heart rate) and a peak blood pressure of 144/72 mmHg. The baseline ECG demonstrated sinus rhythm; ventricular trigeminy. The peak pharmacologic ECG demonstrated no obvious ECG changes. Cardiac rhythm compatible with sinus rhythm with ventricular trigeminy pretest, during infusion, and recovery. There was no complaint of chest discomfort during pharmacologic infusion or recovery. The examination was discontinued secondary to completion of protocol. Impression: 1. Pharmacologic (Regadenoson) evaluation 2. Peak pharmacologic ECG with no obvious ECG changes. 3. Cardiac rhythm compatible with sinus rhythm with ventricular trigeminy pretest, during infusion, and recovery. 4. Nuclear images pending Myocardial perfusion imaging study: Technique: The patient was injected with 14.1 millicuries of technetium 99m Cardiolite and subsequently rest SPECT Cardiolite nuclear imaging was obtained in the horizontal long, vertical long, and short axis views. The patient underwent pharmacologic (Regadenoson) evaluation with a peak heart rate of 91 beats per minute (61% percent predicted maximal heart rate) and a peak blood pressure of 144/72 mmHg. The patient was injected with 42.0 millicuries of technetium 99m Cardiolite and subsequently stress SPECT Cardiolite nuclear imaging was obtained in the horizontal long, vertical long, and short axis views. A gated Cardiolite study at peak stress was not obtained. Interpretation: Rest and stress SPECT Cardiolite nuclear imaging status post realignment, normalization, and attenuation correction demonstrate a small area of diminished tracer uptake near the inferior apical/lateral apical segments which appears to be somewhat more prominent following stress as opposed to rest potentially compatible shifting soft tissue attenuation/artifact and/or physiologic apical thinning although a small area of stress-induced myocardial ischemia cannot necessarily be excluded. A gated Cardiolite study at peak stress was not obtained. Impression: 1. Rest and stress SPECT Cardiolite nuclear imaging demonstrate myocardial perfusion changes potentially compatible with shifting soft tissue attenuation/artifact and/or physiologic apical thinning although a small area of stress-induced myocardial ischemia in the inferior apical/lateral apical segments cannot necessarily be excluded. 2. A gated Cardiolite study at peak stress was not obtained. This note was generated with [employer] software. It may contain incorrect words, spelling, and punctuation that were not noted in checking the note before signing.
--- NOTE | 2020-03-16 12:48 | PN_ITS ---
<[employer] - Last Filed: 03/16/20 13:05> Patient Problems: Active and Suspected Problems (Last Reviewed 03/16/20 @ 08:[address] Jez armando MD) PVC (premature ventricular contraction) (Acute) Shortness of breath (Acute) Subjective: Patient seen and examined. Denies shortness of breath at rest however continues to have dyspnea on exertion. Reports diaphoresis with exertion as well. Denies chest pain. Denies palpitations. - Physical Exam Vitals/I&O's: Vital Signs Temp Pulse Resp BP Pulse Ox 97.8 F 60 18 122/94 H 92 03/16/20 10:19 03/16/20 10:49 03/16/20 10:19 03/16/20 10:49 03/16/20 10:19 Oxygen Flow Rate (L/min) 2 Oxygen Delivery Method Nasal Cannula Weight: 244 lb 4.355 oz Body Mass Index (BMI) 44.6 Intake and Output for Last 24 Hours 03/14/20 03/15/20 03/16/20 23:59 23:59 23:59 Intake Total 560 / 560 Balance 560 / 560 General: Alert, Oriented x3, Cooperative HEENT: Atraumatic, PERRLA, EOMI, Normocephalic Neck: Supple, No JVD, Negative Carotid Bruits Lungs: Clear to auscultation, Diminished Cardiovascular: - - Bigeminy/trigeminy Abdomen: Bowel Sounds Present, Soft, Non Tender, Non-Distended, Obese Extremities: No clubbing, No cyanosis, No edema, Capillary Refill Less than 3 Seconds Skin: No rashes, No breakdown Musculoskeletal: No Tenderness to Palpation of Joints or Extremities Neurological: Cranial nerves II-XII grossly intact, Neuro grossly intact Psych/Mental Status: Normal Affect, Appropriate Microbiology Past 72 Hours 03/15/20 21:30 Mucosa - Nose SARS-CoV-2 Antigen (Rapid) - Final Laboratory Results 03/15/20 00:02: Troponin I 0.032 03/15/20 18:40: WBC 7.5, RBC 5.34, Hgb 16.2, Hct 50.3, MCV 94.2 H, MCH 30.3, MCHC 32.2, RDW Std Deviation 43.6, RDW Coeff of Cristofer 12.7, Plt Count 185, MPV 10.4, Immature Gran % (Auto) 0.400, Neut % (Auto) 58.4, Lymph % (Auto) 26.0, [place] % (Auto) 11.9 H, Eos % (Auto) 2.8, Baso % (Auto) 0.5, Absolute Neuts (auto) 4.4, Absolute Lymphs (auto) 1.95, Nucleated RBC % 0 03/15/20 18:40: Sodium 142, Potassium 4.5, Chloride 113 H, Carbon Dioxide 26.0, Anion Gap 3 L, BUN 30 H, Creatinine 1.33 H, Estim Creat Clear Calc 38.77, Est GFR (MDRD) Af Amer 68, Est GFR (MDRD) Non-Af 56 L, BUN/Creatinine Ratio 22.6 H, Glucose 81, Calcium 9.0, Troponin I 0.029, TSH 2.34 03/16/20 02:30: TSH 2.64 03/16/20 02:30: Troponin I 0.026 03/16/20 02:30: Magnesium 2.2 03/16/20 05:35: Troponin I 0.023 Current Medications Acetaminophen (Acetaminophen 325 Mg Tablet) 650 mg PO Q6H PRN PRN PRN Reason: Pain Score 1-10/Temp > 100.7 F Aspirin (Aspirin E.C. 81 Mg Tablet) 81 mg PO BID ON LICENSE OF [facility] Last Admin: 03/16/20 10:49 Dose: 81 mg Documented by: Atorvastatin Calcium (Atorvastatin Calcium 40 Mg Tablet) 40 mg PO QHS ON LICENSE OF [facility] Last Admin: 03/15/20 23:55 Dose: 40 mg Documented by: Lisinopril (Lisinopril 10 Mg Tablet) 10 mg PO DAILY ON LICENSE OF [facility] Last Admin: 03/16/20 10:50 Dose: 10 mg Documented by: Melatonin (Melatonin 3 Mg Tablet) 3 mg PO QHS PRN PRN PRN Reason: INSOMNIA Metoprolol Tartrate (Metoprolol Tartrate 50 Mg Tablet) 50 mg PO BID ON LICENSE OF [facility] Last Admin: 03/16/20 10:49 Dose: 50 mg Documented by: Ondansetron HCl (Ondansetron 4 Mg/2 Ml Vial) 4 mg IV Q8H PRN PRN PRN Reason: NAUSEA/VOMITING Sodium Chloride (0.9% Saline Lock 10 Ml Syringe) 10 - 40 ml IV UD PRN PRN Reason: SALINE FLUSH Medical Necessity - Tobacco Use Smoking Status: Never smoker Assessment/Plan All Active Problems (Last Reviewed 03/16/20 @ 08:[address] Jez Hendrickson MD) PVC (premature ventricular contraction) (Acute) Shortness of breath (Acute) 1. Abnormal stress test, bigeminy/trigeminy-stress test demonstrates soft tissue attenuation versus artifact and physiological apical thinning although small area of stress-induced myocardial ischemia in the inferior apical/lateral segments cannot be excluded. Troponin negative. Echocardiogram demonstrates an EF of 65%. Continue aspirin, statin, metoprolol, lisinopril. Cardiology consult placed. Possible heart cath as well as possible EP eval. 2. CAD with history of single-vessel CABG SVG to OM in 2014-continue aspirin, statin, metoprolol, lisinopril. 3. History of aortic valve replacement-stable per recent echo. 4. Hypertension-stable, continue lisinopril, metoprolol. 5. Hyperlipidemia- continue statin. DVT prophylaxis- Lovenox sc This patient was seen by MAXIMILIANO Sherman under the supervision of Dr. Lovlel. <Shamar Lovell - Last Filed: 03/16/20 13:23> - Physical Exam Vitals/I&O's: Vital Signs Temp Pulse Resp BP Pulse Ox 97.8 F 60 18 122/94 H 92 03/16/20 10:19 03/16/20 10:49 03/16/20 10:19 03/16/20 10:49 03/16/20 10:19 Oxygen Flow Rate (L/min) 2 Oxygen Delivery Method Nasal Cannula Weight: 110.8 kg Body Mass Index (BMI) 44.6 Intake and Output for Last 24 Hours 03/14/20 03/15/20 03/16/20 23:59 23:59 23:59 Intake Total 560 / 560 Balance 560 / 560 Microbiology Past 72 Hours 03/15/20 21:30 Mucosa - Nose SARS-CoV-2 Antigen (Rapid) - Final Laboratory Results 03/15/20 00:02: Troponin I 0.032 03/15/20 18:40: WBC 7.5, RBC 5.34, Hgb 16.2, Hct 50.3, MCV 94.2 H, MCH 30.3, MCHC 32.2, RDW Std Deviation 43.6, RDW Coeff of Cristofer 12.7, Plt Count 185, MPV 10.4, Immature Gran % (Auto) 0.400, Neut % (Auto) 58.4, Lymph % (Auto) 26.0, [place] % (Auto) 11.9 H, Eos % (Auto) 2.8, Baso % (Auto) 0.5, Absolute Neuts (auto) 4.4, Absolute Lymphs (auto) 1.95, Nucleated RBC % 0 03/15/20 18:40: Sodium 142, Potassium 4.5, Chloride 113 H, Carbon Dioxide 26.0, Anion Gap 3 L, BUN 30 H, Creatinine 1.33 H, Estim Creat Clear Calc 38.77, Est GFR (MDRD) Af Amer 68, Est GFR (MDRD) Non-Af 56 L, BUN/Creatinine Ratio 22.6 H, Glucose 81, Calcium 9.0, Troponin I 0.029, TSH 2.34 03/16/20 02:30: TSH 2.64 03/16/20 02:30: Troponin I 0.026 03/16/20 02:30: Magnesium 2.2 03/16/20 05:35: Troponin I 0.023 Current Medications Acetaminophen (Acetaminophen 325 Mg Tablet) 650 mg PO Q6H PRN PRN PRN Reason: Pain Score 1-10/Temp > 100.7 F Aspirin (Aspirin E.C. 81 Mg Tablet) 81 mg PO BID ON LICENSE OF [facility] Last Admin: 03/16/20 10:49 Dose: 81 mg Documented by: Atorvastatin Calcium (Atorvastatin Calcium 40 Mg Tablet) 40 mg PO QHS ON LICENSE OF [facility] Last Admin: 03/15/20 23:55 Dose: 40 mg Documented by: Enoxaparin Sodium (Enoxaparin 40 Mg/0.4 Ml Syringe) 40 mg SC DAILY@0600 ON LICENSE OF [facility] Lisinopril (Lisinopril 10 Mg Tablet) 10 mg PO DAILY ON LICENSE OF [facility] Last Admin: 03/16/20 10:50 Dose: 10 mg Documented by: Melatonin (Melatonin 3 Mg Tablet) 3 mg PO QHS PRN PRN PRN Reason: INSOMNIA Metoprolol Tartrate (Metoprolol Tartrate 50 Mg Tablet) 50 mg PO BID ON LICENSE OF [facility] Last Admin: 03/16/20 10:49 Dose: 50 mg Documented by: Ondansetron HCl (Ondansetron 4 Mg/2 Ml Vial) 4 mg IV Q8H PRN PRN PRN Reason: NAUSEA/VOMITING Sodium Chloride (0.9% Saline Lock 10 Ml Syringe) 10 - 40 ml IV UD PRN PRN Reason: SALINE FLUSH Assessment/Plan This patient was seen in conjunction with MAXIMILIANO Sherman . I have independently interviewed and examined the patient and reviewed pertinent historical, laboratory, and other data. Please refer to MAXIMLIIANO Sherman note for details of this patient's presentation, findings, and recommendations. I have reviewed MAXIMILIANO Sherman note and concur with documented findings. In brief, 75-year-old gentleman with past medical history single for coronary artery disease status post single-vessel CABG presented with progressive shortness of breath. Admitted to monitored bed scale evaluation. Patient underwent a nuclear stress test which was reported to be suspicious for myocardial ischemia involving inferior apical/lateral segments. Echo demonstrated EF of 65% and consultation placed to cardiology. Patient was also noted to have arrhythmias (bigeminy's and trigeminy's Physical Examination: GENERAL: cooperative HEENT: Atraumatic; EYES; Anicteric, Normal Conjunctiva NECK; supple, normal thyroid, RESPIRATORY: Diminished to auscultation CARDIOVASCULAR: Regular S1 S2, GI: soft, normoactive bowel sounds, : No Renal angle tenderness; EXTREMITIES: No edema, no clubbing, MUSCULOSKELETAL: no muscle waisting NEURO: Awake; no lateralizing signs. SKIN: No Rash PSYCH; Flat affect Assessment: 1. Exertional dyspnea with abnormal stress test 2. Coronary artery disease status post single-vessel CABG 3. Arrhythmias (Trigeminy is in bigeminy's) 4. History of aortic valve replacement 5. Essential hypertension 6. Dyslipidemia 7. Obesity with BMI of 44.7 7. DVT prophylaxis Recommendations: 1. I have discussed the results of my overview and impressions with the patient 2. Options for management were reviewed Advance planning; did discuss with the patient regarding advanced directives as well as CODE STATUS. Did explain the various scenarios involved ( FULL CODE, DNR CCA, DNR CCA with no intubation, and DNR CC and what each meant) patient elected to remain full code with CPR and intubation if needed. Order was placed. Time spent on discussion 18 minutes. OBSV E&M: 09248 Subsequent observation care L3 Procedures: 56020 Advncd Care Plan 30 Min
--- NOTE | 2020-03-16 13:50 | CON.PCM_ITS ---
Problem List (1) Shortness of breath Status: Acute (2) PVC (premature ventricular contraction) Status: Acute (3) Atherosclerosis of coronary artery of [place] heart without angina pectoris Status: Chronic Qualifiers: Coronary Disease-Associated Artery/Lesion type: [place] artery Qualified Code(s): I25.10 - Atherosclerotic heart disease of [place] coronary artery without angina pectoris (4) History of coronary artery bypass graft Status: Chronic Comment: RVG to Obtuse marginal Cx (5) History of aortic valve replacement Status: Chronic Comment: 29 mm Xin Snow valve, aortoplasty with bovine pericardial patch. (6) Hyperlipidemia Status: Chronic Qualifiers: Hyperlipidemia type: unspecified Qualified Code(s): E78.5 - Hyperlipidemia, unspecified (7) Essential hypertension Status: Chronic Reason for Consult Date of Consultation: 03/16/20 History of Present Illness: The patient is a 74 year oldgjz-cbih-pop white male with a past cardiovascular history which is included underlying CAD, status post SVG to OM, aortic valve stenosis/insufficiency status post AVR-bioprosthetic with aortoplasty with a bovine pericardial patch, hyperlipidemia, hypertension who is referred for evaluation of progressive shortness of breath/dyspnea on underlying ventricular ectopy. He states over the last approximately 2 to 3 weeks he has had progressive shortness of breath/dyspnea with exertion. 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 He has not necessarily had associated chest discomfort. There is been no orthopnea or PND or peripheral pitting edema. He has not had any clear notation of repetitive palpitations or rapid heart rates. There is been no near syncope or syncope. He does note that over the past year he has gained at least 20 pounds of weight. Based upon his ongoing symptoms he presented to the hospital for further evaluation. He has been on cardiac ekg monitor which is demonstrated underlying sinus rhythm with occasional PVCs and episodes of ventricular bigeminy and trigeminy. He had cardiac enzymes performed were negative. His ECG demonstrated sinus rhythm with ventricular ectopy. A chest x-ray demonstrated postoperative changes but no acute cardiopulmonary disease process. He has undergone additional evaluation with a transthoracic echocardiogram and a pharmacologic stress nuclear imaging study. The results are as noted below. He states he takes his medications as prescribed. He does not recall ever undergoing a pulmonology evaluation with PFTs, etc. [] Past Medical History Allergies/Adverse Reactions: Allergies No Known Allergies Allergy (Verified 03/15/20 17:37) Home Medications: Ambulatory Orders Medication Instructions Recorded Atorvastatin Calcium [Lipitor] 40 mg PO QHS 10/16/16 aspirin 81 mg tablet,delayed 81 mg PO BID tab 09/07/18 release lisinopril 20 mg tablet 10 mg PO DAILY tab 04/26/19 acetaminophen 500 mg tablet 1,000 mg PO Q8 PRN tab 07/25/19 metoprolol tartrate 50 mg tablet 50 mg PO BID #60 tab 01/30/20 Past Medical History (Chronic Problems): Chronic Problems (Last Reviewed 03/16/20 @ 08:[address] Jez Hendrickson MD) Colon cancer (Chronic) 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 Hyperlipidemia (Chronic) Atherosclerosis of coronary artery of [place] heart without angina pectoris (Chronic) Essential hypertension (Chronic) Surgical History: colectomy, coronary bypass surgery Psychiatric History: No pertinent psych hx - *Family History Paternal Family History: Family History (Last Reviewed 03/16/20 @ 08:[address] Jez Hendrickson MD) Father Heart disease Brother Heart disease Brother Colon cancer History Items: Heart Disease Sibling Family History: Family History (Last Reviewed 03/16/20 @ 08:[address] Jez Hendrickson MD) Father Heart disease Brother Heart disease Brother Colon cancer History Items: Heart Disease Smoking Status: Never smoker Alcohol: None Drugs: None Review of Systems - Review of Systems General: Denies: Fever, Night Sweats, Fatigue Cardiovascular: Reports: Shortness of Breath, Shortness of Breath at Rest, Shortness of Breath with Exertion. Denies: Chest Discomfort, Orthopnea, PND, Peripheral Edema, Palpitations, Lightheadedness, Dizziness, Near Syncope, Syncope Respiratory: Reports: Shortness of Breath. Denies: Cough, Sputum Production, He moptysis Gastrointestinal: Denies: Hematemesis, Hematochezia, Melena Genitourinary: Denies: Dysuria, Hematuria Skin: Denies: Rash Subjectve: This is a pleasant 74-year-old white male who appears resting comfortably at the moment in no acute distress. Objective: Vital Signs Temp Pulse Resp BP Pulse Ox 97.8 F 60 18 122/94 H 92 03/16/20 10:19 03/16/20 10:49 03/16/20 10:19 03/16/20 10:49 03/16/20 10:19 Oxygen Flow Rate (L/min) 2 Oxygen Delivery Method Nasal Cannula Weight: 244 lb 4.355 oz Body Mass Index (BMI) 44.6 Intake and Output for Last 24 Hours 03/14/20 03/15/20 03/16/20 23:59 23:59 23:59 Intake Total 560 / 560 Balance 560 / 560 General: Awake, Alert, Oriented x 3, Cooperative, No Acute Distress, Obese HEENT: Atraumatic, Normocephalic, PERRL, EOMI, Sclera Non Icteric Neck: Supple, Good ROM, No JVD Lungs: Clear to auscultation Cardiovascular: Regular Rhythm, Premature Ectopic Beats, Normal S1, Normal S2 Vascular: No Carotid Bruits, Normal Radial Pulses Abdomen: Bowel Sounds Present, Soft, Obese Extremities: No edema Neurological: No Focal Motor or Sensory Deficit Psych/Mental Status: Appropriate 03/15/20 00:02: Troponin I 0.032 03/15/20 18:40: WBC 7.5, RBC 5.34, Hgb 16.2, Hct 50.3, MCV 94.2 H, MCH 30.3, MCHC 32.2, Plt Count 185, MPV 10.4, Immature Gran % (Auto) 0.400, Neut % (Auto) 58.4, Lymph % (Auto) 26.0, [place] % (Auto) 11.9 H, Eos % (Auto) 2.8, Baso % (Auto) 0.5, Absolute Neuts (auto) 4.4, Nucleated RBC % 0 03/15/20 18:40: Sodium 142, Potassium 4.5, Chloride 113 H, Carbon Dioxide 26.0, Anion Gap 3 L, BUN 30 H, Creatinine 1.33 H, Est GFR (MDRD) Af Amer 68, Est GFR (MDRD) Non-Af 56 L, BUN/Creatinine Ratio 22.6 H, Glucose 81, Calcium 9.0, Troponin I 0.029 03/16/20 02:30: Troponin I 0.026 03/16/20 02:30: Magnesium 2.2 03/16/20 05:35: Troponin I 0.023 Rhythm: Sinus rhythm; PVCs EKG: Sinus rhythm; PVCs Event monitor: [facility]: April-April, Sinus rhythm with intermittent sinus bradycardia No significant atrial arrhythmias noted Occasional ventricular prematures were noted with rare ventricular couplets No complex ventricular arrhythmia No pauses noted Symptoms correlated with occasional ventricular prematures ECHO: 03/16/2020 Interpretation Summary The study was technically difficult. Contrast injection was performed. Based upon the 2D echocardiographic and contrast enhanced images obtained there appears to be grossly normal left ventricular size, wall motion, and systolic function. The estimated ejection fraction is 65 %. The left atrium is mildly enlarged. There is moderate mitral annular calcification. Extension of the mitral annular calcification onto the posterior mitral valve leaflets. Trivial tricuspid valve insufficiency. The aortic valve apparatus is not well visualized, however, based upon the 2D echocardiographic images obtained there appears to be a stable bioprosthetic aortic valve present. Trivial pulmonic valve insufficiency. Unable to estimate RV systolic pressure/pulmonary artery pressure due to technically difficult study. Unable to assess diastolic dysfunction. Stress Test Report Date: 03-16-2020 Procedure: Pharmacologic stress nuclear imaging study Indications: Shortness of breath/dyspnea on exertion; CAD; CABG; status post AVR; ventricular ectopy Consent: Per the patient Procedure: The patient underwent pharmacologic (Regadenoson) evaluation with a peak heart rate of 91 beats per minute (61%predicted maximal heart rate) and a peak blood pressure of 144/72 mmHg. The baseline ECG demonstrated sinus rhythm; ventricular trigeminy. The peak pharmacologic ECG demonstrated no obvious ECG changes. Cardiac rhythm compatible with sinus rhythm with ventricular trigeminy pretest, during infusion, and recovery. There was no complaint of chest discomfort during pharmacologic infusion or recovery. The examination was discontinued secondary to completion of protocol. Impression: 1. Pharmacologic (Regadenoson) evaluation 2. Peak pharmacologic ECG with no obvious ECG changes. 3. Cardiac rhythm compatible with sinus rhythm with ventricular trigeminy pretest, during infusion, and recovery. 4. Nuclear images pending Myocardial perfusion imaging study: Technique: The patient was injected with 14.1 millicuries of technetium 99m Cardiolite and subsequently rest SPECT Cardiolite nuclear imaging was obtained in the horizontal long, vertical long, and short axis views. The patient underwent pharmacologic (Regadenoson) evaluation with a peak heart rate of 91 beats per minute (61% percent predicted maximal heart rate) and a peak blood pressure of 144/72 mmHg. The patient was injected with 42.0 millicuries of technetium 99m Cardiolite and subsequently stress SPECT Cardiolite nuclear imaging was obtained in the horizontal long, vertical long, and short axis views. A gated Cardiolite study at peak stress was not obtained. Interpretation: Rest and stress SPECT Cardiolite nuclear imaging status post realignment, normalization, and attenuation correction demonstrate a small area of diminished tracer uptake near the inferior apical/lateral apical segments which appears to be somewhat more prominent following stress as opposed to rest potentially compatible shifting soft tissue attenuation/artifact and/or physiologic apical thinning although a small area of stress-induced myocardial ischemia cannot necessarily be excluded. A gated Cardiolite study at peak stress was not obtained. Impression: 1. Rest and stress SPECT Cardiolite nuclear imaging demonstrate myocardial perfusion changes potentially compatible with shifting soft tissue attenuation/artifact and/or physiologic apical thinning although a small area of stress-induced myocardial ischemia in the inferior apical/lateral apical segments cannot necessarily be excluded. 2. A gated Cardiolite study at peak stress was not obtained. Cardiac Cath: 06/10/2014 Nonobstructive CAD of the LAD, LCx, and RCA Possibly significant ostial stenosis of OM1 Mild global left ventricular dysfunction with an LVEF of approximately 45% with an elevated EDP Severe aortic insufficiency Moderate aortic stenosis by gradient Unable to perform right heart catheterization due to body habitus Echocardiogram demonstrating significant pulmonary hypertension Recommendation for transfer to [facility] for [facility] surgery evaluation CT Surgery: 06/14/2014: [facility] SVG to OM AVR with a near Xin-Snow bioprosthetic valve Aortoplasty with bovine pericardial patch CXR: Preliminary evaluation: Status post open heart surgery procedure: No acute cardiopulmonary disease process appreciated: Please see official report Assessment/Plan 1. Shortness of breath/dyspnea on exertion The etiology of the patient's shortness of breath may be multifactorial. Based upon his cardiovascular history and his noninvasive studies there is a question of any progression of his CAD or graft vessel disease proceeding with myocardial ischemia that would be brought out with shortness of breath/dyspnea on exertion as an angina pectoris equivalent. He does not appear to have any definitive indication of malfunction of his aortic valve prosthesis. He is not aware of any obvious underlying pulmonary disease history although this has not necessarily been excluded. He is unfortunately obese which could present an issue for him with respect to a potential underlying restrictive pulmonary disease process as his abdominal obesity may not allow him to clearly expand his diaphragm as needed, etc. From a cardiac standpoint he is being monitored. It is reasonable to continue medical therapy as deemed appropriate. It is reasonable to consider further evaluation with diagnostic cardiac catheterization to reassess his coronary and graft status. Based upon review of Dr. Lau's patient notes it appears this is been under consideration in the past. If such a study is unremarkable and there is no other definitive structural cardiovascular disease process then perhaps he needs to explore other allergies. Other etiologies would include concerns of an underlying pulmonary disease process as well as contribution from his obesity. There is been some question raised as to whether or not his ventricular ectopy may be contributing to his shortness of breath/dyspnea. It does not appear that he is in ventricular bigeminy or trigeminy all the time and thus it is not clear that his ventricular ectopy is the sole etiology for his symptoms. If there is concerned about his underlying ventricular ectopy playing a role then not only will he need to continue his medical therapy but he may need to be evaluated by electrophysiology as an outpatient. 2. 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 It does not appear to be new. It has been documented in the past. Again it is not clear that his ventricular ectopy is present all the time in such patterns to explain his symptoms. 3. CAD status post CABG Again based upon his symptoms and his noninvasive studies it is not unreasonable to reassess his coronary/graft anatomy for any progression of disease that warrants additional revascularization therapy. This would include diagnostic cardiac catheterization. The procedure and risks were discussed with him. He was agreeable to this approach. 4. Aortic valve insufficiency status post AVR-bioprosthetic Based upon his examination and his echocardiogram his aortic valve prosthesis appears to be stable. Thus it is not clear that this is malfunctioning to cause him his concern of shortness of breath/dyspnea on exertion. He will need to continue AHA antibiotic prophylaxis. 5. Hyperlipidemia He should continue risk factor evaluation and care. 6. Hypertension He should continue monitoring of his blood pressure with adjustment of medications as needed. 7. Obesity Unfortunately he is obese. Again his obesity may lead to a potential restrictive process with his underlying pulmonary system that could contribute to his shortness of breath and dyspnea especially when he is bending over. Thus he is encouraged to adjust his diet and try and bring his weight under better control. Comment: The patient's case was discussed and reviewed with the patient and the [facility] hospitalist team. This note was generated using a voice recognition system and there may be incorrect words, spelling or punctuation that were not noted when reviewing the office note prior to saving.
[2020-03-16] MEDS: Clopidogrel Bisulfate 300 MG Tablet PO (15:31)
--- NOTE | 2020-03-16 19:00 | PCS.PANDOC ---
PANDEMIC DOCUMENTATION INITIATED: Date: 03/15/20 Time: 22:30
[2020-03-16] MEDS: Atorvastatin Calcium 40 MG Tablet PO (20:40)
[2020-03-17] VITALS (12 sets, daily range): BP systolic 102–126; BP diastolic 49–81; PULSE 64–87; RESP 18; TEMP 36.1–36.9; O2SAT 94–97
[2020-03-17 04:45] LABS: Absolute Lymphocyte Count 1.71 X10^3/uL (0.83-4.51); Absolute Neutrophil Count 5.1 X10^3/uL (2.0-7.7); Basophil# 0.04 X10^3/uL; Basophil% 0.5 % (0-1); Eosinophil# 0.16 X10^3/uL; Hemoglobin 15.7 g/dL (13.0-16.5); Lymphocyte # 1.71 X10^3/ul (4.0); Lymphocyte % 21.7 % (19-41); Mean Corp Hgb Conc 31.4 g/dL (32-36); Mean Corpuscular Hgb 29.8 pg (27.0-32.0); Mean Corpuscular Volume 95.1 fL (80-94); Mean Platelet Vol. 10.2 fl (6.2-12.0); Monocyte# 0.83 X10^3/uL; Monocyte% 10.5 % (0-10); NRBC Flagged by Analyzer 0 % (0-5); Neutrophil # 5.11 X10^3/uL (2.7-7.7); Neutrophil % 64.9 % (47-70); Platelet Count 156 K/mm3 (150-450); RBC Distribution Width SD 45.5 fl (35.1-43.9); Red Blood Count 5.26 M/mm3 (4.6-6.2); White Blood Count 7.9 K/mm3 (4.4-11.0)
[2020-03-17 06:04] LABS: Anion Gap 6 (5-15); BUN 27 mg/dL (7-18); BUN/Creat Ratio 19.4 RATIO (10-20); Calcium,Total 8.5 mg/dL (8.5-10.1); Chloride 110 mmol/L (98-107); Creatinine, Serum 1.39 mg/dL (0.70-1.30); EST Glomerular Filtration Rate 53 mL/min (>60); Est Glom Filt Rate - Afr Amer 65 mL/min (>60); Glucose 88 mg/dL (74-106); Potassium 4.1 mmol/L (3.5-5.1); Sodium Level 143 mmol/L (136-145)
[2020-03-17] MEDS: Enoxaparin 40 MG/0.4 ML Syringe SC (06:16)
[2020-03-17] MEDS: 0.9% Saline Lock 10 ML Syringe IV ×3 (06:23→22:25)
[2020-03-17] MEDS: Lisinopril 10 MG Tablet PO (09:51)
[2020-03-17] MEDS: Metoprolol Tartrate 50 MG Tablet PO ×2 (09:51→21:18)
[2020-03-17] MEDS: Aspirin E.C. 81 MG Tablet PO ×2 (09:51→21:18)
--- NOTE | 2020-03-17 09:53 | PCM.PN.CARD ---
Subjectve: The patient states he has had no concerning chest discomfort. His breathing is similar and/or he believes may be somewhat better. He has not sensed his underlying ectopy. Objective: Vital Signs Temp Pulse Resp BP Pulse Ox 98.5 F 87 18 102/81 H 95 03/17/20 09:20 03/17/20 09:51 03/17/20 09:20 03/17/20 09:20 03/17/20 09:20 Oxygen Flow Rate (L/min) 2 Oxygen Delivery Method Nasal Cannula Weight: 244 lb 4.355 oz Body Mass Index (BMI) 44.6 Intake and Output for Last 24 Hours 03/15/20 03/16/20 03/17/20 23:59 23:59 23:59 Intake Total 1140 / 1140 Balance 1140 / 1140 General: Awake, Alert, Oriented x 3, Cooperative, No Acute Distress, Obese HEENT: Atraumatic, Normocephalic, PERRL, EOMI, Sclera Non Icteric Neck: Supple, Good ROM, No JVD Lungs: Clear to auscultation Cardiovascular: Regular Rhythm, Premature Ectopic Beats, Normal S1, Normal S2 Abdomen: Bowel Sounds Present, Soft Extremities: No edema Neurological: No Focal Motor or Sensory Deficit Psych/Mental Status: Appropriate 03/17/20 04:35: Sodium 143, Potassium 4.1, Chloride 110 H, Carbon Dioxide 27.0, Anion Gap 6, BUN 27 H, Creatinine 1.39 H, Est GFR (MDRD) Af Amer 65, Est GFR (MDRD) Non-Af 53 L, BUN/Creatinine Ratio 19.4, Glucose 88, Calcium 8.5 03/17/20 04:35: WBC 7.9, RBC 5.26, Hgb 15.7, Hct 50.0, MCV 95.1 H, MCH 29.8, MCHC 31.4 L, Plt Count 156, MPV 10.2, Immature Gran % (Auto) 0.400, Neut % (Auto) 64.9, Lymph % (Auto) 21.7, [place] % (Auto) 10.5 H, Eos % (Auto) 2.0, Baso % (Auto) 0.5, Absolute Neuts (auto) 5.1, Nucleated RBC % 0 Rhythm: Sinus rhythm; PVCs Medical Necessity - Tobacco Use Smoking Status: Never smoker Assessment/Plan 1. Shortness of breath/dyspnea on exertion The etiology of the patient's shortness of breath may be multifactorial. Based upon his cardiovascular history and his noninvasive studies there is a question of any progression of his CAD or graft vessel disease proceeding with myocardial ischemia that would be brought out with shortness of breath/dyspnea on exertion as an angina pectoris equivalent. He does not appear to have any definitive indication of malfunction of his aortic valve prosthesis. He is not aware of any obvious underlying pulmonary disease history although this has not necessarily been excluded. He is unfortunately obese which could present an issue for him with respect to a potential underlying restrictive pulmonary disease process as his abdominal obesity may not allow him to clearly expand his diaphragm as needed, etc. From a cardiac standpoint he is being monitored. It is reasonable to continue medical therapy as deemed appropriate. It is reasonable to consider further evaluation with diagnostic cardiac catheterization to reassess his coronary and graft status. Based upon review of Dr. Lau's patient notes it appears this is been under consideration in the past. If such a study is unremarkable and there is no other definitive structural cardiovascular disease process then perhaps he needs to explore other allergies. Other etiologies would include concerns of an underlying pulmonary disease process as well as contribution from his obesity. There is been some question raised as to whether or not his ventricular ectopy may be contributing to his shortness of breath/dyspnea. It does not appear that he is in ventricular bigeminy or trigeminy all the time and thus it is not clear that his ventricular ectopy is the sole etiology for his symptoms. If there is concerned about his underlying ventricular ectopy playing a role then not only will he need to continue his medical therapy but he may need to be evaluated by electrophysiology as an outpatient. 2. 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 It does not appear to be new. It has been documented in the past. Again it is not clear that his ventricular ectopy is present all the time in such patterns to explain his symptoms. 3. CAD status post CABG Again based upon his symptoms and his noninvasive studies it is not unreasonable to reassess his coronary/graft anatomy for any progression of disease that warrants additional revascularization therapy. This would include diagnostic cardiac catheterization. The procedure and risks were discussed with him. He was agreeable to this approach. 4. Aortic valve insufficiency status post AVR-bioprosthetic Based upon his examination and his echocardiogram his aortic valve prosthesis appears to be stable. Thus it is not clear that this is malfunctioning to cause him his concern of shortness of breath/dyspnea on exertion. He will need to continue AHA antibiotic prophylaxis. 5. Hyperlipidemia He should continue risk factor evaluation and care. 6. Hypertension He should continue monitoring of his blood pressure with adjustment of medications as needed. 7. Obesity Unfortunately he is obese. Again his obesity may lead to a potential restrictive process with his underlying pulmonary system that could contribute to his shortness of breath and dyspnea especially when he is bending over. Thus he is encouraged to adjust his diet and try and bring his weight under better control. Overall, at the present time, the patient will continue to be monitored. He will continue medical therapy as deemed appropriate. He is being scheduled for diagnostic cardiac catheterization on 03-18-2020 barring unforeseen events. Depending upon his findings he may or may not need further coronary/graft evaluation and/or care versus continued medical therapy as well as continued noncardiac evaluation as previously noted which may include further pulmonary evaluation as well as the need for continued dietary adjustment in order to bring his weight under better control. Comment: The patient's case was discussed and reviewed with the patient and Dr. Lovell. This note was generated using a voice recognition system and there may be incorrect words, spelling or punctuation that were not noted when reviewing the office note prior to saving.
[2020-03-17] MEDS: Clopidogrel Bisulfate 75 MG Tablet PO (09:58)
--- NOTE | 2020-03-17 11:33 | PN_ITS ---
<CaioDenise DRAWER IN [employer]ACQUARD LOOM - Last Filed: 03/17/20 11:41> Patient Problems: Active and Suspected Problems (Last Reviewed 03/16/20 @ 08:[address] Jez armando MD) PVC (premature ventricular contraction) (Acute) Shortness of breath (Acute) Subjective: Patient seen and examined. Denies further shortness of breath however he states he has not been moving much. Denies chest pain, palpitations. Plan for heart cath in a.m. - Physical Exam Vitals/I&O's: Vital Signs Temp Pulse Resp BP Pulse Ox 98.5 F 87 18 102/81 H 95 03/17/20 09:20 03/17/20 09:51 03/17/20 09:20 03/17/20 09:20 03/17/20 09:20 Oxygen Flow Rate (L/min) 2 Oxygen Delivery Method Nasal Cannula Weight: 244 lb 4.355 oz Body Mass Index (BMI) 44.6 Intake and Output for Last 24 Hours 03/15/20 03/16/20 03/17/20 23:59 23:59 23:59 Intake Total 1140 / 1140 Balance 1140 / 1140 General: Alert, Oriented x3, Cooperative HEENT: Atraumatic, PERRLA, EOMI, Normocephalic Neck: Supple, No JVD, Negative Carotid Bruits Lungs: Clear to auscultation, Normal air movement Cardiovascular: Regular rate, No murmurs, - - PVCs Abdomen: Bowel Sounds Present, Soft, Non Tender, Obese Extremities: No edema, Capillary Refill Less than 3 Seconds Skin: No rashes, No breakdown Musculoskeletal: No Tenderness to Palpation of Joints or Extremities Neurological: Cranial nerves II-XII grossly intact, Neuro grossly intact Psych/Mental Status: Normal Affect, Appropriate Microbiology Past 72 Hours 03/15/20 21:30 Mucosa - Nose SARS-CoV-2 Antigen (Rapid) - Final Laboratory Results 03/17/20 04:35: Sodium 143, Potassium 4.1, Chloride 110 H, Carbon Dioxide 27.0, Anion Gap 6, BUN 27 H, Creatinine 1.39 H, Estim Creat Clear Calc 37.10, Est GFR (MDRD) Af Amer 65, Est GFR (MDRD) Non-Af 53 L, BUN/Creatinine Ratio 19.4, Glucose 88, Calcium 8.5 03/17/20 04:35: WBC 7.9, RBC 5.26, Hgb 15.7, Hct 50.0, MCV 95.1 H, MCH 29.8, MCHC 31.4 L, RDW Std Deviation 45.5 H, RDW Coeff of Cristofer 13.0, Plt Count 156, MPV 10.2, Immature Gran % (Auto) 0.400, Neut % (Auto) 64.9, Lymph % (Auto) 21.7, Price % (Auto) 10.5 H, Eos % (Auto) 2.0, Baso % (Auto) 0.5, Absolute Neuts (auto) 5.1, Absolute Lymphs (auto) 1.71, Nucleated RBC % 0 Current Medications Acetaminophen (Acetaminophen 325 Mg Tablet) 650 mg PO Q6H PRN PRN PRN Reason: Pain Score 1-10/Temp > 100.7 F Aspirin (Aspirin E.C. 81 Mg Tablet) 81 mg PO BID [facility] Last Admin: 03/17/20 09:51 Dose: 81 mg Documented by: Atorvastatin Calcium (Atorvastatin Calcium 40 Mg Tablet) 40 mg PO QHS [facility] Last Admin: 03/16/20 20:40 Dose: 40 mg Documented by: Clopidogrel Bisulfate (Clopidogrel Bisulfate 75 Mg Tablet) 75 mg PO DAILY [facility] Last Admin: 03/17/20 09:58 Dose: 75 mg Documented by: Enoxaparin Sodium (Enoxaparin 40 Mg/0.4 Ml Syringe) 40 mg SC DAILY@0600 [facility] Last Admin: 03/17/20 06:16 Dose: 40 mg Documented by: Sodium Chloride () 1,000 mls @ 0 mls/hr IV .Q0M [facility] Lisinopril (Lisinopril 10 Mg Tablet) 10 mg PO DAILY [facility] Last Admin: 03/17/20 09:51 Dose: 10 mg Documented by: Melatonin (Melatonin 3 Mg Tablet) 3 mg PO QHS PRN PRN PRN Reason: INSOMNIA Metoprolol Tartrate (Metoprolol Tartrate 50 Mg Tablet) 50 mg PO BID [facility] Last Admin: 03/17/20 09:51 Dose: 50 mg Documented by: Ondansetron HCl (Ondansetron 4 Mg/2 Ml Vial) 4 mg IV Q8H PRN PRN PRN Reason: NAUSEA/VOMITING Sodium Chloride (0.9% Saline Lock 10 Ml Syringe) 10 - 40 ml IV UD PRN PRN Reason: SALINE FLUSH Last Admin: 03/17/20 06:23 Dose: 10 ml Documented by: Medical Necessity - Tobacco Use Smoking Status: Never smoker Assessment/Plan All Active Problems (Last Reviewed 03/16/20 @ 08:[address] Jez Hendrickson MD) PVC (premature ventricular contraction) (Acute) Shortness of breath (Acute) 1. Abnormal stress test, dyspnea on exertion- stress test demonstrates soft tissue attenuation versus artifact and physiological apical thinning although small area of stress-induced myocardial ischemia in the inferior apical/lateral segments cannot be excluded. Troponin negative. Echocardiogram demonstrates an EF of 65%. Continue aspirin, statin, metoprolol, lisinopril. Plavix added. Cardiology following. Plan for heart cath in a.m. 2. Ventricular ectopy/bigeminy/trigeminy-cardiology following as noted above. Appears improved. Continue beta-amanda. If heart cath unremarkable, may need outpatient EP eval. 3. CAD with history of single-vessel CABG SVG to in 2014-continue aspirin, statin, metoprolol, lisinopril. 4. History of aortic valve replacement-stable per recent echo. 5. Hypertension-stable, continue lisinopril, metoprolol. 6. Hyperlipidemia- continue statin. 7. Chronic kidney disease stage III-at baseline. DVT prophylaxis- Lovenox sc Discharge planning: Heart cath 03/18/2020, further disposition pending heart cath findings. This patient was seen by MAXIMILIANO Sherman under the supervision of Dr. Lovell. <Shamar Lovell - Last Filed: 03/17/20 11:55> - Physical Exam Vitals/I&O's: Vital Signs Temp Pulse Resp BP Pulse Ox 98.5 F 87 18 102/81 H 95 03/17/20 09:20 03/17/20 09:51 03/17/20 09:20 03/17/20 09:20 03/17/20 09:20 Oxygen Flow Rate (L/min) 2 Oxygen Delivery Method Nasal Cannula Weight: 110.8 kg Body Mass Index (BMI) 44.6 Intake and Output for Last 24 Hours 03/15/20 03/16/20 03/17/20 23:59 23:59 23:59 Intake Total 1140 / 1140 Balance 1140 / 1140 Microbiology Past 72 Hours 03/15/20 21:30 Mucosa - Nose SARS-CoV-2 Antigen (Rapid) - Final Laboratory Results 03/17/20 04:35: Sodium 143, Potassium 4.1, Chloride 110 H, Carbon Dioxide 27.0, Anion Gap 6, BUN 27 H, Creatinine 1.39 H, Estim Creat Clear Calc 37.10, Est GFR (MDRD) Af Amer 65, Est GFR (MDRD) Non-Af 53 L, BUN/Creatinine Ratio 19.4, Glucose 88, Calcium 8.5 03/17/20 04:35: WBC 7.9, RBC 5.26, Hgb 15.7, Hct 50.0, MCV 95.1 H, MCH 29.8, MCHC 31.4 L, RDW Std Deviation 45.5 H, RDW Coeff of Cristofer 13.0, Plt Count 156, MPV 10.2, Immature Gran % (Auto) 0.400, Neut % (Auto) 64.9, Lymph % (Auto) 21.7, Price % (Auto) 10.5 H, Eos % (Auto) 2.0, Baso % (Auto) 0.5, Absolute Neuts (auto) 5.1, Absolute Lymphs (auto) 1.71, Nucleated RBC % 0 Current Medications Acetaminophen (Acetaminophen 325 Mg Tablet) 650 mg PO Q6H PRN PRN PRN Reason: Pain Score 1-10/Temp > 100.7 F Aspirin (Aspirin E.C. 81 Mg Tablet) 81 mg PO BID [facility] Last Admin: 03/17/20 09:51 Dose: 81 mg Documented by: Atorvastatin Calcium (Atorvastatin Calcium 40 Mg Tablet) 40 mg PO QHS [facility] Last Admin: 03/16/20 20:40 Dose: 40 mg Documented by: Clopidogrel Bisulfate (Clopidogrel Bisulfate 75 Mg Tablet) 75 mg PO DAILY [facility] Last Admin: 03/17/20 09:58 Dose: 75 mg Documented by: Enoxaparin Sodium (Enoxaparin 40 Mg/0.4 Ml Syringe) 40 mg SC DAILY@0600 [facility] Last Admin: 03/17/20 06:16 Dose: 40 mg Documented by: Sodium Chloride () 1,000 mls @ 0 mls/hr IV .Q0M [facility] Lisinopril (Lisinopril 10 Mg Tablet) 10 mg PO DAILY [facility] Last Admin: 03/17/20 09:51 Dose: 10 mg Documented by: Melatonin (Melatonin 3 Mg Tablet) 3 mg PO QHS PRN PRN PRN Reason: INSOMNIA Metoprolol Tartrate (Metoprolol Tartrate 50 Mg Tablet) 50 mg PO BID [facility] Last Admin: 03/17/20 09:51 Dose: 50 mg Documented by: Ondansetron HCl (Ondansetron 4 Mg/2 Ml Vial) 4 mg IV Q8H PRN PRN PRN Reason: NAUSEA/VOMITING Sodium Chloride (0.9% Saline Lock 10 Ml Syringe) 10 - 40 ml IV UD PRN PRN Reason: SALINE FLUSH Last Admin: 03/17/20 06:23 Dose: 10 ml Documented by: Assessment/Plan This patient was seen in conjunction with MAXIMILIANO Sherman . I have independently interviewed and examined the patient and reviewed pertinent historical, laboratory, and other data. Please refer to MAXIMILIANO Sherman note for details of this patient's presentation, findings, and recommendations. I have reviewed MAXIMILIANO Sherman note and concur with documented findings. In brief, 75-year-old gentleman with past medical history single for coronary artery disease status post single-vessel CABG presented with progressive shortness of breath. Admitted to monitored bed scale evaluation. Patient underwent a nuclear stress test which was reported to be suspicious for myocardial ischemia involving inferior apical/lateral segments. Echo demonstrated EF of 65% and consultation placed to cardiology. Patient was also noted to have arrhythmias (bigeminy's and trigeminy's 03/17/2020; patient was seen in consultation by Dr. Rhoades's recommendation is for patient to undergo left heart catheterization on 03/18/2020. Physical Examination: GENERAL: cooperative HEENT: Atraumatic; EYES; Anicteric, Normal Conjunctiva NECK; supple, normal thyroid, RESPIRATORY: Diminished to auscultation CARDIOVASCULAR: Regular S1 S2, GI: soft, normoactive bowel sounds, : No Renal angle tenderness; EXTREMITIES: No edema, no clubbing, MUSCULOSKELETAL: no muscle waisting NEURO: Awake; no lateralizing signs. SKIN: No Rash PSYCH; Flat affect Assessment: 1. Exertional dyspnea with abnormal stress test 2. Coronary artery disease status post single-vessel CABG 3. Arrhythmias (Trigeminy is in bigeminy's) 4. History of aortic valve replacement 5. Essential hypertension 6. Dyslipidemia 7. Obesity with BMI of 44.7 7. DVT prophylaxis Recommendations: 1. I have discussed the results of my overview and impressions with the patient 2. Options for management were reviewed Inpatient E&M: 25427 Subs Hosp L2
[2020-03-17] MEDS: Atorvastatin Calcium 40 MG Tablet PO (21:19)
[2020-03-18] VITALS (15 sets, daily range): BP systolic 105–136; BP diastolic 51–89; PULSE 57–78; RESP 14–20; TEMP 36.6; O2SAT 91–97
--- NOTE | 2020-03-18 05:00 | EKG12_ITS ---
Test Reason : AM EKG Blood Pressure : / mmHG Vent. Rate : 072 BPM Atrial Rate : 072 BPM P-R Int : 174 ms QRS Dur : 102 ms QT Int : 416 ms P-R-T Axes : 042 005 134 degrees QTc Int : 455 ms Sinus rhythm with frequent Premature ventricular complexes Possible Left ventricular hypertrophy with repolarization abnormality Abnormal ECG Confirmed by LIOR CALDERA, GIOVANNI ([id number]), supervising editor news reel MICHA FERRARO ([id number]) on 03/22/2020 9:49:03 AM Referred By: DR RIVAS Confirmed By:GIOVANNI TINAJERO MD
[2020-03-18 05:09] LABS: Hematocrit 48.5 % (40-54); Hemoglobin 15.4 g/dL (13.0-16.5); Mean Corp Hgb Conc 31.8 g/dL (32-36); Mean Corpuscular Hgb 30.1 pg (27.0-32.0); Mean Corpuscular Volume 94.7 fL (80-94); Mean Platelet Vol. 10.4 fl (6.2-12.0); Platelet Count 176 K/mm3 (150-450); RBC Distribution Width CV 12.7 % (11.6-14.6); RBC Distribution Width SD 44.3 fl (35.1-43.9); Red Blood Count 5.12 M/mm3 (4.6-6.2); White Blood Count 7.4 K/mm3 (4.4-11.0)
[2020-03-18 05:20] LABS: International Normalized Ratio 1.1; Prothrombin Time (Protime)PT. 13.3 SECONDS (11.7-14.9)
[2020-03-18 05:30] LABS: Anion Gap 4 (5-15); BUN 22 mg/dL (7-18); BUN/Creat Ratio 18.8 RATIO (10-20); Calcium,Total 8.5 mg/dL (8.5-10.1); Chloride 110 mmol/L (98-107); Creatinine, Serum 1.17 mg/dL (0.70-1.30); EST Glomerular Filtration Rate 65 mL/min (>60); Est Glom Filt Rate - Afr Amer 79 mL/min (>60); Estimated Creatinine Clearance 44.07 ml/min; Glucose 88 mg/dL (74-106); Sodium Level 141 mmol/L (136-145)
[2020-03-18] MEDS: Clopidogrel Bisulfate 75 MG Tablet PO (05:42)
[2020-03-18] MEDS: Aspirin E.C. 81 MG Tablet PO (05:42)
[2020-03-18] MEDS: Lisinopril 10 MG Tablet PO (05:42)
[2020-03-18] MEDS: Metoprolol Tartrate 50 MG Tablet PO (05:42)
[2020-03-18] MEDS: 0.9% Normal Saline 1,000 ML 15 ML IV (05:43)
--- NOTE | 2020-03-18 07:36 | PN.CARD_ITS ---
Subjectve: The patient is awake and alert. He appears to have no new acute cardiovascular complaints. Objective: Vital Signs Temp Pulse Resp BP Pulse Ox 97.8 F 72 20 H 136/64 H 97 03/18/20 05:40 03/18/20 06:42 03/18/20 05:40 03/18/20 05:40 03/18/20 07:23 Oxygen Flow Rate (L/min) 2 Oxygen Delivery Method Nasal Cannula Weight: 244 lb 4.355 oz Body Mass Index (BMI) 44.6 Intake and Output for Last 24 Hours 03/16/20 03/17/20 03/18/20 23:59 23:59 23:59 Intake Total 1140 / 1140 700 / 900 200 / 200 Output Total 600 / 600 Balance 1140 / 1140 100 / 300 200 / 200 General: Awake, Alert, Oriented x 3, Cooperative, No Acute Distress, Obese HEENT: Atraumatic, Normocephalic, PERRL, EOMI, Sclera Non Icteric Neck: No JVD Lungs: Clear to auscultation Cardiovascular: Regular Rhythm, Normal S1, Normal S2 Abdomen: Bowel Sounds Present, Non Tender Extremities: No edema Neurological: No Focal Motor or Sensory Deficit Psych/Mental Status: Appropriate 03/18/20 04:50: WBC 7.4, RBC 5.12, Hgb 15.4, Hct 48.5, MCV 94.7 H, MCH 30.1, MCHC 31.8 L, Plt Count 176, MPV 10.4 03/18/20 04:50: PT 13.3, INR 1.1 03/18/20 04:50: Sodium 141, Potassium 4.0, Chloride 110 H, Carbon Dioxide 27.0, Anion Gap 4 L, BUN 22 H, Creatinine 1.17, Est GFR (MDRD) Af Amer 79, Est GFR (MD RD) Non-Af 65, BUN/Creatinine Ratio 18.8, Glucose 88, Calcium 8.5 Rhythm: Sinus rhythm; PVCs EKG: Sinus rhythm; PVCs-ventricular trigeminy Medical Necessity - Tobacco Use Smoking Status: Never smoker Assessment/Plan 1. Shortness of breath/dyspnea on exertion The etiology of the patient's shortness of breath may be multifactorial. Based upon his cardiovascular history and his noninvasive studies there is a question of any progression of his CAD or graft vessel disease proceeding with myocardial ischemia that would be brought out with shortness of breath/dyspnea on exertion as an angina pectoris equivalent. He does not appear to have any definitive indication of malfunction of his aortic valve prosthesis. He is not aware of any obvious underlying pulmonary disease history although this has not necessarily been excluded. He is unfortunately obese which could present an issue for him with respect to a potential underlying restrictive pulmonary disease process as his abdominal obesity may not allow him to clearly expand his diaphragm as needed, etc. Other etiologies would include concerns of an underlying pulmonary disease process as well as contribution from his obesity. There is been some question raised as to whether or not his ventricular ectopy may be contributing to his shortness of breath/dyspnea. It does not appear that he is in ventricular bigeminy or trigeminy all the time and thus it is not clear that his ventricular ectopy is the sole etiology for his symptoms. If there is concerned about his underlying ventricular ectopy playing a role then not only will he need to continue his medical therapy but he may need to be evaluated by electrophysiology as an outpatient. As noted above, based upon his symptoms, his clinical findings, etc. he has been recommended to undergo further evaluation with diagnostic cardiac catheterization. The procedure and risks have been discussed with him and he was agreeable to this approach. 2. 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 It does not appear to be new. It has been documented in the past. Again it is not clear that his ventricular ectopy is present all the time in such patterns to explain his symptoms. 3. CAD status post CABG Again based upon his symptoms and his noninvasive studies it is not unreasonable to reassess his coronary/graft anatomy for any progression of disease that warrants additional revascularization therapy. This would include diagnostic cardiac catheterization. The procedure and risks were discussed with him. He was agreeable to this approach. 4. Aortic valve insufficiency status post AVR-bioprosthetic Based upon his examination and his echocardiogram his aortic valve prosthesis appears to be stable. Thus it is not clear that this is malfunctioning to cause him his concern of shortness of breath/dyspnea on exertion. He will need to continue AHA antibiotic prophylaxis. 5. Hyperlipidemia He should continue risk factor evaluation and care. 6. Hypertension He should continue monitoring of his blood pressure with adjustment of medications as needed. 7. Obesity Unfortunately he is obese. Again his obesity may lead to a potential restrictive process with his underlying pulmonary system that could contribute to his shortness of breath and dyspnea especially when he is bending over. Thus he is encouraged to adjust his diet and try and bring his weight under better control. This note was generated using a voice recognition system and there may be incorrect words, spelling or punctuation that were not noted when reviewing the office note prior to saving.
[2020-03-18 08:01] LABS: Base Excess 6 mmol/L (-2 to +2); Bicarbonate 30.8 mmol/L (22-26); Blood Gas Specimen Type ART; PO2 69 mmHG (75-100); SO2 93 % (95-99); Total Carbon Dioxide 32 mmol/L; pCO2 53.3 mmHg (35-45); pH 7.37 (7.35-7.45)
[2020-03-18 08:15] LABS: Blood Gas Specimen Type VEN; VBG BASE EXCESS 3 mmol/L (-1.0-3.5); VBG Bicarbonate 29 mmol/L (22-26); VBG PO2 34 mmHg (25-40); VBG SO2 61 % (50-70); VBG TCO2 30 mmol/L (23-33); VBG pH 7.34 (7.32-7.42)
[2020-03-18 08:35] LABS: Blood Gas Specimen Type VEN; VBG BASE EXCESS 3 mmol/L (-1.0-3.5); VBG Bicarbonate 29 mmol/L (22-26); VBG PO2 31 mmHg (25-40); VBG SO2 54 % (50-70); VBG TCO2 31 mmol/L (23-33); VBG pCO2 55.7 mmHg (41-51); VBG pH 7.32 (7.32-7.42)
[2020-03-18 08:35] LABS: Blood Gas Specimen Type VEN; VBG BASE EXCESS 3 mmol/L (-1.0-3.5); VBG Bicarbonate 29 mmol/L (22-26); VBG PO2 34 mmHg (25-40); VBG SO2 59 % (50-70); VBG TCO2 31 mmol/L (23-33); VBG pCO2 57.9 mmHg (41-51); VBG pH 7.31 (7.32-7.42)
[2020-03-18 09:05] LABS: Blood Gas Specimen Type VEN; VBG BASE EXCESS 2 mmol/L (-1.0-3.5); VBG Bicarbonate 29 mmol/L (22-26); VBG PO2 35 mmHg (25-40); VBG SO2 60 % (50-70); VBG TCO2 31 mmol/L (23-33); VBG pCO2 58.5 mmHg (41-51)
--- NOTE | 2020-03-18 09:25 | CASEMGMT ---
According to the [facility] website, the following are in-network tertiary facilities: [facility], [facility], [facility], [facility], [facility], [facility], [employer], and . Katiana DE SOUZA CM
--- NOTE | 2020-03-18 09:49 | CL.D_ITS ---
Patient Name: JAYASHREE VELA Study Date: 03/18/2020 Performing: Joaquín Rhoades MD Ht: 61.81 inches 157 cm : 1945 Wt: 244.71 lbs 111 kg Age: 74 Gender: male BSA: 2.08 PROCEDURE(S) PERFORMED DC11-AO ROOT ANGIO WITH HEART CATH ZA85-RXE/LHC/COR/CABG CLINICAL PROFILE AND INDICATIONS Indications: Suspected CAD, Valvular Disease Heart Failure: None Stress/Imaging Date: 03/16/2020tress Test with SPECT MPI: Indeterminant Angina Classification Anginal Classification w/in 2 Weeks: Anginal Equivalent Dyspnea CAD Presentations: Other: dyspnea on exertion CONCLUSIONS Right heart pressures - moderately elevated The patient has pulmonary hypertension which is moderate. 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 The risks and benefits of the procedure as well as a full d escription of our services here and current unavailability of surgical backup were fully explained to the patient and/or their significant other prior to the catheterization. The Timeout was completed, verifying the correct patient and procedure. The patient's procedural site was prepped and draped in the usual fashion. Local anesthetic was given subcutaneously to right radial region with Lidocaine 2% . Using a modified Seldinger technique, arterial access was obtained via the right radial artery, a 6 Fr sheath was inserted. Venous access was obtained via the right brachiocephalic vein, a 7Fr sheath w as inserted. A 7Fr thermal dilution catheter was inserted and right heart pressures were recorded, it was then advanced to PA position for cardiac outputs. O2 saturations were then obtained. Thermal dil ution cardiac outputs were then recorded. Right Coronary Artery selective angiography was then performed in multiple views using a 5 Fr. 4.0 Devon catheter. Left Coronary Artery selective ang iography was performed in multiple views using a 5 Fr. 4.0 Devon catheter. Saphenous Vein graft to th e OM 1 selective angiography was performed in multiple views using a 5 Fr. LCB catheter, occluded. Th e Thermal dilution catheter was then removed.The arterial sheath was pulled and a TR Band was applied for hemostasis. 10cc of air. The venous sheath was then pulled and manual compression applied until hemostasis achieved CORONARY ANGIOGRAPHY DOMINANCE: Left Dominant LEFT HEART ASSESSMENT Left Ventricular Ejection Fraction: Not assessed RIGHT HEART ASSESSMENT Thermal CO: 4.13 Thermal CI: 1.99 PA: 56/12 28 RV: 49/10 22 RA: 17 SVR: 1511 Right Heart pressures - elevated Pulmonary Hypertension Moderate Intracardiac shunting: None LEFT MAIN: Angiographically normal LEFT ANTERIOR DESCENDING ARTERY: PROX LAD: Mild luminal irregularities CIRCUMFLEX ARTERY: Angiographically normal OM 1: Proximal - small caliber vessel: no angiographically significant appearing disease RIGHT CORONARY ARTERY: Angiographically normal GRAFTS: Saphenous Vein graft to the 1st OM is totally occluded: proximal occlusion / fills partially distall y from LCA retrograde flow VALVE FINDINGS: Stable / competent appearing bioprosthetic aortic valve apparatus AORTIC ROOT: Angiographically normal COMPLICATIONS No Complications PROCEDURE MEDICATIONS Versed 1 mg IV Fentanyl 50 mcg IV Heparin diluted in 23cc Heparinized saline. Patient given 10cc IA of this solution. 03/18/2020 07:47: 55 Verapamil 2.5mg, Ntg 100mcgs, 2000 units of Heparin diluted in 23cc Heparinized saline. Patient give n 10cc IA of this solution. 03/18/2020 07:47:55 SUMMARY OF HEMODYNAMIC DATA Time AIR REST ECG 07:22:02 RA (17) SV 08:07:33 RA (16) 08:07:54 RV 49/10, 22 08:23:57 PA 56/12 (28) PA 08:28:22 AO 110/85 (95) SA 08:38:18 Type SV CO (l/m) CI (l/m/ HR Time AIR REST Thermal 103.30 4.13 1.99 40 07:22:02 Label % O2 Pres/Loc Time AIR REST AO 93 PV 09:01:44 PA 59 PA 09:01:51 IVC 61 09:01:59 SVC 60 09:02:09 RV 54 SV 09:02:16 Signed By Joaquín Rhoades MD On 03/18/2020 9:48:14 AM Joaquín Rhoades MD
--- NOTE | 2020-03-18 10:40 | CASEMGMT ---
NOLVIA YBARRA assessment: Face to Face with patient for initial transition planning/care coordination assessment. NOLVIA YBARRA introduced self and role at [facility], pt voices understanding and consents to assessment at this time. Pt is sitting up in bed in no distress at this time. Pt is A/Ox4 at this time and answers all questions appropriately at this time. Care providers, pharmacy, and demographics verified at this time. Presentation: Increased SOB x1 month and low HR Admitting dx: Dyspnea, bigeminy PCP: Tran Specialists: Judi, cardio Preferred Pharmacy: [facility] Insurance: [facility] Prescription Benefit: [facility] Living Will/HPOA: Pt states does not have LW/HPOA and declines AD info at this time. LNOK: Penelope Hanks, ; Kelly Damon, daughter Living Arrangements: Pt states lives with in mobile home with ramp entrance and states no concerns at home at this time. Pt states is independent with ADL's. Transportation: Pt states drives self and states no transportation concerns at this time. DME/HHC: Pt states the following DME: cane, walker, grab bars, and walk-in shower and states no need for any further DME at this time. Pt states no hx of HHC or SNF in the past. Pt states no concerns with going home at time of discharge. Pt states is retired. Pt states does not smoke cigarettes or drink ETOH. Pt states no further concerns/needs at this time. CM to follow for any further discharge planning/needs. Advised pt to ask for CM if any further questions/concerns/needs arise, voices understanding. Pt Goal: Home Plan[place] NOLVIA YBARRA
[2020-03-18] MEDS: 0.9% Normal Saline 1,000 ML 75 ML IV (10:48)
[2020-03-18] MEDS: Furosemide 20 MG Tablet PO (11:05)
--- NOTE | 2020-03-18 14:39 | DCINST_ITS ---
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 Hyperlipidemia (Chronic) Atherosclerosis of coronary artery of [place] heart without angina pectoris (Chronic) Essential hypertension (Chronic) You will use the following diet at home:: Calorie/Carbohydrate Controlled (specify 1200, 1400, etc), Cardiac Your food should be the consistency of: Regular Your liquids should be the consistency of: Regular/Thin Discharge Activity: Return to Normal Activity Call your doctor if your incision/area has: Swelling at the incision site Call your doctor if you observe: Fever of 101 or Higher, Shortness of breath, Dizziness, Fainting spells, Swelling in the ankles, Chest pain, Increased palpitations (irregular heartbeat) Instructions: Understanding Coronary Artery Disease (CAD), Your Heart is at Risk, Pulmonary Hypertension Additional Instructions: Follow-up with PCP in 3 to 5 days to obtain a BMP to evaluate your kidney function since you are started on Lasix. Allergies/Adverse Reactions: Allergies No Known Allergies Allergy (Verified 03/15/20 17:37) Medications to take at Discharge Atorvastatin Calcium [Lipitor] 40 mg PO QHS 10/16/16 aspirin 81 mg tablet,delayed release 81 mg PO BID tab 09/07/18 lisinopril 20 mg tablet 10 mg PO DAILY tab 04/26/19 acetaminophen 500 mg tablet 1,000 mg PO Q8 PRN tab 07/25/19 metoprolol tartrate 50 mg tablet 50 mg PO BID #60 tab 01/30/20 Furosemide [Lasix] 20 mg PO DAILY #30 tab 03/18/20 The following prescriptions were given: Furosemide [Lasix] 20 mg PO DAILY #30 tab Transmission Status: Pending to [facility] Orders to be completed after discharge: Pulmonary Medicine Location: None Selected Primary Care Physician: Rukhsana Mayfield MD [Primary Care Provider] - Please follow up with your Primary Care Physician in: 3-5 days Test Results: Test results from this visit will be discussed in further detail at your follow- up appointment, if applicable. Please Follow Up With: Anderson Lau MD When: 2 weeks Please Follow Up With: Mo Quiñonez MD When: 2-4 weeks
--- NOTE | 2020-03-18 14:58 | CON.PCM_ITS ---
Problem List (1) Pulmonary hypertension Status: Acute (2) PVC (premature ventricular contraction) Status: Acute (3) Shortness of breath Status: Acute (4) History of coronary artery bypass graft Status: Chronic Comment: RVG to Obtuse marginal Cx (5) History of aortic valve replacement Status: Chronic Comment: 29 mm Xin Snow valve, aortoplasty with bovine pericardial patch. (6) Hyperlipidemia Status: Chronic Qualifiers: Hyperlipidemia type: unspecified Qualified Code(s): E78.5 - Hyperlipidemia, unspecified (7) Atherosclerosis of coronary artery of [place] heart without angina pectoris Status: Chronic Qualifiers: Coronary Disease-Associated Artery/Lesion type: [place] artery Qualified Code(s): I25.10 - Atherosclerotic heart disease of [place] coronary artery without angina pectoris (8) Essential hypertension Status: Chronic Reason for Consult Date of Consultation: 03/18/20 Reason for Consultation: Pulmonary hypertension History of Present Illness: The patient is a 74 year old M, with past medical history listed below, who presented to [facility] on 03/15/2020 secondary to progressive shortness of breath over the last 2 to 3 weeks. Patient had reported symptoms with exertion, but had progressed to mild symptoms at rest, so came to the ER for evaluation. Patient had denied any concomitant chest pain, fever, chills or cough. Patient reportedly had no exposure to Covid and had worked as a [employer]. In the ER, patient was noted to have a mild elevation of troponin and creatinine. CBC was unremarkable. Chest x-ray was relatively unremarkable. Patient was placed on 2 L nasal cannula secondary to hypoxia, given aspirin and admitted to the floor. Over the course of patient's hospitalization, patient has received significant diuretic therapy. Patient had a right and left heart cath earlier today showing moderately elevated right ventricular pressures with associated elevated pulmonary artery pressures. PA pressure was reported at 56/12 with an elevated right atrial pressure of 17. Left heart catheterization did not show any significant interventions were required. Given concerns for possible pulmonary component, a pulmonary consult was obtained. Patient reports that he has had some increasing shortness of breath over the last 2 to 3 years. Patient denies any smoking history. Patient is unaware of any previous PE or DVT. Patient does have an aortic valve and is on chronic anticoagulation. 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 Patient does not routinely wear a mask. Patient is not reporting a significant lower extremity edema, but does state that he is improved from a dyspnea standpoint after Lasix during hospitalization. Patient had had a walking oximetry prior to my arrival that showed that he only desaturated to 91%. Patient was very vague about sleep symptoms. Patient has never had a sleep study. Patient has not required any supplemental oxygen previously. Review of systems otherwise negative from a constitutional, HEENT, respiratory, cardiovascular, GI, genitourinary, musculoskeletal, skin, neurologic, psychiatric and hematologic system unless stated above. 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 Hyperlipidemia (Chronic) Atherosclerosis of coronary artery of [place] heart without angina pectoris (Chronic) Essential hypertension (Chronic) Medical History: Medical History (Last Updated 03/18/20 @ 11:49 by Soraida Rider) Hyperlipidemia (Chronic) E78.5 Atherosclerosis of coronary artery of [place] heart without angina pectoris (Chronic) I25.10 Essential hypertension (Chronic) I10 Benign prostatic hyperplasia with lower urinary tract symptoms N40.1 Aortic stenosis I35.0 History of left heart catheterization (LHC) Onset Date: ~03/18/20 Z98.890 LEFT MAIN: Angiographically normal; LEFT ANTERIOR DESCENDING ARTERY:PROX LAD: Mild luminal irregularities, CIRCUMFLEX ARTERY: Angiographically normal, OM 1: Proximal - small caliber vessel: no angiographically significant appearing disease; RIGHT CORONARY AR DARCY: Angiographically normal; GRAFTS: Saphenous Vein graft to the 1st OM is totally occluded: proximal occlusion / fills partially distally from LCA retrograde flow; VALVE FINDINGS: Stable / competent appearing bioprosthetic aortic valve apparatus; AORTIC ROOT: Angiographically normal per cath 03/18/20 Severe aortic insufficiency I35.1 Allergies No Known Allergies Allergy (Verified 03/15/20 17:37) Home Medications: Ambulatory Orders Medication Instructions Recorded Atorvastatin Calcium [Lipitor] 40 mg PO QHS 10/16/16 aspirin 81 mg tablet,delayed 81 mg PO BID tab 09/07/18 release lisinopril 20 mg tablet 10 mg PO DAILY tab 04/26/19 acetaminophen 500 mg tablet 1,000 mg PO Q8 PRN tab 07/25/19 metoprolol tartrate 50 mg tablet 50 mg PO BID #60 tab 01/30/20 Furosemide [Lasix] 20 mg PO DAILY #30 tab 03/18/20 Surgical History: Surgical History (Last Reviewed 03/16/20 @ 08:[address] Jez Hendrickson MD) History of coronary artery bypass graft (Chronic) Onset Date: 06/14/14 Z95.1 RVG to Obtuse marginal Cx History of aortic valve replacement (Chronic) Onset Date: 06/14/14 Z95.2 29 mm Xin Snow valve, aortoplasty with bovine pericardial patch. History of right hip replacement Onset Date: 09/28/18 Z96.641 History of open reduction and internal fixation (ORIF) procedure Z98.890 right ankle History of partial colectomy Onset Date: ~05/2018 Z90.49 Surgical History: colectomy, coronary bypass surgery Psychiatric History: No pertinent psych hx Smoking Status: Never smoker Alcohol: None Drugs: None - *Family History Paternal Family History: Family History (Last Reviewed 03/16/20 @ 08:[address] Jez Hendrickson MD) Father Heart disease Brother Heart disease Brother Colon cancer History Items: Heart Disease Sibling Family History: Family History (Last Reviewed 03/16/20 @ 08:[address] Jez Hendrickson MD) Father Heart disease Brother Heart disease Brother Colon cancer History Items: Heart Disease Review of Systems Comment: See HPI Patient Problems: Active and Suspected Problems (Last Updated 03/18/20 @ 11:49 by Soraida iRder) PVC (premature ventricular contraction) (Acute) Shortness of breath (Acute) Objective: All imaging was personally reviewed. Chest x-ray was relatively unremarkable except for a slightly elevated diaphragm. Patient also had cardiomegaly with significant RV shadow. Patient does not have a sleep study or pulmonary function test available for review. Heart catheterization and echocardiogram were reviewed. - Physical Exam Vitals/I&O's: Vital Signs Temp Pulse Resp BP Pulse Ox 36.6 C 63 17 117/51 L 95 03/18/20 13:36 03/18/20 13:36 03/18/20 13:36 03/18/20 13:36 03/18/20 13:36 Oxygen Flow Rate (L/min) 2 Oxygen Delivery Method Room Air Weight: 110.8 kg Body Mass Index (BMI) 44.6 Intake and Output for Last 24 Hours 03/16/20 03/17/20 03/18/20 23:59 23:59 23:59 Intake Total 1140 / 1140 700 / 900 440 / 440 Output Total 600 / 600 Balance 1140 / 1140 100 / 300 440 / 440 General: Alert, Oriented x3, Cooperative, No apparent distress, - - Morbidly obese. No conversational dyspnea. Patient's present during evaluation HEENT: Atraumatic, PERRLA, EOMI, Normocephalic, - - No scleral icterus or inj ection noted Oral: Moist Mucosa, No Gingival or Mucosal Lesions/ Ulcerations, - - Crowded posterior pharynx Neck: Supple, No Nodes, Trachea Midline, JVD, Right Lungs: No rhonchi, No wheeze, No rales, Diminished, - - Symmetric expansion Cardiovascular: Regular rate, Regular Rhythm, Normal S1, Normal S2, No murmurs, No rub noted, No Gallop Abdomen: Bowel Sounds Present, Soft, Non Tender, Non-Distended, Obese Extremities: No clubbing, No cyanosis, No edema Skin: No rashes, No breakdown Musculoskeletal: No Tenderness to Palpation of Joints or Extremities Lymphatic: No Cervical, Supraclavicular, or Inguinal Adenopathy Neurological: Cranial nerves II-XII grossly intact, Neuro grossly intact, Motor Exam 5/5 strength throughout Psych/Mental Status: Alert and oriented to time, place, person, mood and affect Microbiology Past 72 Hours 03/15/20 21:30 Mucosa - Nose SARS-CoV-2 Antigen (Rapid) - Final Laboratory Results 03/18/20 04:50: WBC 7.4, RBC 5.12, Hgb 15.4, Hct 48.5, MCV 94.7 H, MCH 30.1, MCHC 31.8 L, RDW Std Deviation 44.3 H, RDW Coeff of Cristofer 12.7, Plt Count 176, MPV 10.4 03/18/20 04:50: PT 13.3, INR 1.1 03/18/20 04:50: Sodium 141, Potassium 4.0, Chloride 110 H, Carbon Dioxide 27.0, Anion Gap 4 L, BUN 22 H, Creatinine 1.17, Estim Creat Clear Calc 44.07, Est GFR (MDRD) Af Amer 79, Est GFR (MDRD) Non-Af 65, BUN/Creatinine Ratio 18.8, Glucose 88, Calcium 8.5 03/18/20 07:55: Specimen Type ART, pH 7.37, Bicarbonate Actual 30.8 H, Total CO2 32, Base Excess 6 H, O2 Saturation 93 L, ABG pCO2 53.3 H, ABG pO2 69 L 03/18/20 08:08: Specimen Type FRANCISCO, VBG pH 7.34, VBG pO2 34, VBG HCO3 29 H, VBG Total CO2 30, VBG O2 Sat (Calc) 61, VBG Base Excess 3, POC Mix VBG pCO2 Pt Tmp 53.0 H 03/18/20 08:26: Specimen Type FRANCISCO, VBG pH 7.32, VBG pO2 31, VBG HCO3 29 H, VBG Total CO2 31, VBG O2 Sat (Calc) 54, VBG Base Excess 3, POC Mix VBG pCO2 Pt Tmp 55.7 H 03/18/20 08:31: Specimen Type FRANCISCO, VBG pH 7.31 L, VBG pO2 34, VBG HCO3 29 H, VBG Total CO2 31, VBG O2 Sat (Calc) 59, VBG Base Excess 3, POC Mix VBG pCO2 Pt Tmp 57.9 H 03/18/20 08:58: Specimen Type FRANCISCO, VBG pH 7.30 L, VBG pO2 35, VBG HCO3 29 H, VBG Total CO2 31, VBG O2 Sat (Calc) 60, VBG Base Excess 2, POC Mix VBG pCO2 Pt Tmp 58.5 H Current Medications Acetaminophen (Acetaminophen 325 Mg Tablet) 650 mg PO Q6H PRN PRN PRN Reason: Pain Score 1-10/Temp > 100.7 F Aspirin (Aspirin E.C. 81 Mg Tablet) 81 mg PO BID [facility] Last Admin: 03/18/20 05:42 Dose: 81 mg Documented by: Atorvastatin Calcium (Atorvastatin Calcium 40 Mg Tablet) 40 mg PO QHS [facility] Last Admin: 03/17/20 21:19 Dose: 40 mg Documented by: Enoxaparin Sodium (Enoxaparin 40 Mg/0.4 Ml Syringe) 40 mg SC DAILY@0600 [facility] Last Admin: 03/17/20 18:57 Dose: Not Given Documented by: Furosemide (Furosemide 20 Mg Tablet) 20 mg PO DAILY [facility] Last Admin: 03/18/20 11:05 Dose: 20 mg Documented by: Sodium Chloride () 1,000 mls @ 0 mls/hr IV .Q0M [facility] Last Infusion: 03/18/20 05:43 Dose: 0 mls/hr Documented by: Sodium Chloride () 1,000 mls @ 75 mls/hr IV .[id number] [facility] Last Admin: 03/18/20 10:48 Dose: 75 mls/hr Documented by: Lisinopril (Lisinopril 10 Mg Tablet) 10 mg PO DAILY [facility] Last Admin: 03/18/20 05:42 Dose: 10 mg Documented by: Melatonin (Melatonin 3 Mg Tablet) 3 mg PO QHS PRN PRN PRN Reason: INSOMNIA Metoprolol Tartrate (Metoprolol Tartrate 50 Mg Tablet) 50 mg PO BID [facility] Last Admin: 03/18/20 05:42 Dose: 50 mg Documented by: Ondansetron HCl (Ondansetron 4 Mg/2 Ml Vial) 4 mg IV Q8H PRN PRN PRN Reason: NAUSEA/VOMITING Potassium Chloride (Potassium Chloride 20 Meq Tablet) 20 meq PO DAILYCM [facility] Last Admin: 03/18/20 11:05 Dose: 20 meq Documented by: Sodium Chloride (0.9% Saline Lock 10 Ml Syringe) 10 - 40 ml IV UD PRN PRN Reason: SALINE FLUSH Last Admin: 03/17/20 22:25 Dose: 10 ml Documented by: Assessment/Plan All Active Problems (Last Updated 03/18/20 @ 11:49 by Soraida Rider) Pulmonary hypertension (Acute) PVC (premature ventricular contraction) (Acute) Shortness of breath (Acute) RECOMMENDATIONS: 1. Okay to discharge from a pulmonary perspective without supplemental oxygen 2. Outpatient complete PFT with possible CT scan 3. Outpatient evaluation for obstructive sleep apnea 4. 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 Cardiac optimization per cardiology. IMPRESSIONS: 1. Pulmonary hypertension Unclear etiology. Patient does have some findings suggestive of a possible cardiac component, but heart cath was relatively unremarkable. Patient's wedge pressure is normal, but does not require supplemental oxygen on exertion. Patient would benefit from cardiac optimization per cardiology. Aortic valve appears to be functioning well, but does desaturate with ambulatio n. Some concern for hypersensitivity pneumonitis and obstructive sleep apnea. Patient should have a PFT and sleep work-up as an outpatient. If restriction on pulmonary function testing, a CT scan of the chest may be necessary. Patient will be at risk for hypoxia with fluid retention, so low-salt diet would be recommended. Patient's exposure to chickens does increased risk for hypersensitivity pneumonitis. Patient should follow-up with nurse practitioner 2 weeks after discharge to arrange for outpatient work-up. Patient may benefit from a right heart catheterization after pulmonary optimization as an outpatient. If pressures remain elevated, evaluation for prostaglandins may be necessary. 2. Morbid obesity/hypertension/hyperlipidemia/CKD stage III/history of aortic valve replacement/advanced age Complicates care, management, recovery and prognosis. Okay to continue with baseline medications. Would encourage weight loss. If okay with cardiology, okay to discharge from a pulmonary perspective. Patient would not qualify for supplemental oxygen with current findings. However, patient has received significant diuresis with 2 kg of weight loss and current walking oximetry may underestimate baseline status. Inpatient E&M: [id number] Init Hosp L2
--- NOTE | 2020-03-18 17:43 | DS.PCM_ITS ---
Discharge Date and Diagnosis - Problem List Patient Problems: Active and Suspected Problems (Last Updated 03/18/20 @ 11:49 by Soraida Rider) Pulmonary hypertension (Acute) PVC (premature ventricular contraction) (Acute) Shortness of breath (Acute) Date of Admission: 03/15/20 Date of Discharge: 03/18/20 - Primary Discharge Diagnosis Acute Problems: Active Problems (Last Updated 03/18/20 @ 11:49 by Soraida Rider) Pulmonary hypertension (Acute) PVC (premature ventricular contraction) (Acute) Shortness of breath (Acute) - Secondary Discharge Diagnosis Chronic Problems: Chronic Problems (Last Updated 03/18/20 @ 11:49 by Soraida Rider) Colon cancer (Chronic) 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 Hyperlipidemia (Chronic) Atherosclerosis of coronary artery of k[place] heart without angina pectoris (Chronic) Essential hypertension (Chronic) Hospital Course and Treatment Imaging Results: Clinical Impression(s) from Imaging Studies Chest X-Ray 03/15/20 19:00 IMPRESSION: Normal x-ray examination of the chest. Electronically Signed: Rahel Dobbs MD at 19:37 EST Tel , Service support , PROCEDURE(S) PERFORMED [id number]-AO ROOT ANGIO WITH HEART CATH [id number]/LHC/COR/CABG CLINICAL PROFILE AND INDICATIONS Indications: Suspected CAD, Valvular Disease Heart Failure: None Stress/Imaging Date: 03/16/2020tress Test with SPECT MPI: Indeterminant Angina Classification Anginal Classification w/in 2 Weeks: Anginal Equivalent Dyspnea CAD Presentations: Other: dyspnea on exertion CONCLUSIONS Right heart pressures - moderately elevated The patient has pulmonary hypertension which is moderate. Intracardiac shunting: None Stable / competent appearing bioprosthetic aortic valve apparatus Double vessel CAD of the LAD and OM1: non angiographically significant SVG to OM1: proximally occluded / fills partially distally from LCA retrograde flow RECOMMENDATIONS Risk factor modification Medical therapy Pulmonary evaluation: PFTs / pulmonary consult Echo:Interpretation Summary The study was technically difficult. Contrast injection was performed. Based upon the 2D echocardiographic and contrast enhanced images obtained there appears to be grossly normal left ventricular size, wall motion, and systolic function. The estimated ejection fraction is 65 %. The left atrium is mildly enlarged. There is moderate mitral annular calcification. Extension of the mitral annular calcification onto the posterior mitral valve leaflets. Trivial tricuspid valve insufficiency. The aortic valve apparatus is not well visualized, however, based upon the 2D echocardiographic images obtained there appears to be a stable bioprosthetic aortic valve present. Trivial pulmonic valve insufficiency. Unable to estimate RV systolic pressure/pulmonary artery pressure due to technically difficult study. Unable to assess diastolic dysfunction. Stress Test Report Date: 03-16-2020 Procedure: Pharmacologic stress nuclear imaging study Indications: Shortness of breath/dyspnea on exertion; CAD; CABG; status post AVR; ventricular ectopy Consent: Per the patient Procedure: The patient underwent pharmacologic (Regadenoson) evaluation with a peak heart rate of 91 beats per minute (61%predicted maximal heart rate) and a peak blood pressure of 144/72 mmHg. The baseline ECG demonstrated sinus rhythm; ventricular trigeminy. The peak pharmacologic ECG demonstrated no obvious ECG changes. Cardiac rhythm compatible with sinus rhythm with ventricular trigeminy pretest, during infusion, and recovery. There was no complaint of chest discomfort during pharmacologic infusion or recovery. The examination was discontinued secondary to completion of protocol. Impression: 1. Pharmacologic (Regadenoson) evaluation 2. Peak pharmacologic ECG with no obvious ECG changes. 3. Cardiac rhythm compatible with sinus rhythm with ventricular trigeminy pretest, during infusion, and recovery. 4. Nuclear images pending Myocardial perfusion imaging study: Technique: The patient was injected with 14.1 millicuries of technetium 99m Cardiolite and subsequently rest SPECT Cardiolite nuclear imaging was obtained in the horizontal long, vertical long, and short axis views. The patient underwent pharmacologic (Regadenoson) evaluation with a peak heart rate of 91 beats per minute (61% percent predicted maximal heart rate) and a peak blood pressure of 144/72 mmHg. The patient was injected with 42.0 millicuries of technetium 99m Cardiolite and subsequently stress SPECT Cardiolite nuclear imaging was obtained in the horizontal long, vertical long, and short axis views. A gated Cardiolite study at peak stress was not obtained. Interpretation: Rest and stress SPECT Cardiolite nuclear imaging status post realignment, normalization, and attenuation correction demonstrate a small area of diminished tracer uptake near the inferior apical/lateral apical segments which appears to be somewhat more prominent following stress as opposed to rest potentially compatible shifting soft tissue attenuation/artifact and/or physiologic apical thinning although a small area of stress-induced myocardial ischemia cannot necessarily be excluded. A gated Cardiolite study at peak stress was not obtai alejandro. Impression: 1. Rest and stress SPECT Cardiolite nuclear imaging demonstrate myocardial perfusion changes potentially compatible with shifting soft tissue attenuation/artifact and/or physiologic apical thinning although a small area of stress-induced myocardial ischemia in the inferior apical/lateral apical segments cannot necessarily be excluded. 2. A gated Cardiolite study at peak stress was not obtained. Consults: Cardiology Pulmonology Procedures: 2-D Echocardiogram, Cardiac catheterization Summary of Care Provided: Per HPI: The patient is a 74 year old M with a significant history of CAD status post CABG; and bovine aortic valve replacement who presents emergency department with a 3-week history of persistent shortness of breath with mild exertion. Associated with his symptoms is paroxysmal nocturnal dyspnea. He uses 1 pillow on attempt to sleep and this has not changed. He denies any weight changes or swelling. His EKG at emergency department showed bigeminy. Hospital Course: 1. Severely acute shortness of breath with mild exertion/HTN/HLD/history of a ortic valve replacement/CAD status post CABG x2/ventricular oxbafb-[id number]-fbeb-old man with a history of CAD status post CABG presented with 3 weeks history of shortness of breath with exertion. He denied any significant chest pain however did undergo an echo with an EF of 65%, he underwent a stress test that was abnormal so he proceeded with a cardiac cath on the day of discharge. The heart cath demonstrated pulmonary hypertension with a competent aortic valve in one of his grafts was occluded. At the time medical management was recommended as well as follow-up with pulmonary for his pulmonary hypertension. We will continue with Lasix p.o. daily and have him follow-up with cardiology as well as pulmonology as an outpatient. He did have an ambulatory pulse ox prior to discharge which did not demonstrate any need for home O2. Given his body habitus there is likely a significant component of obstructive sleep apnea and he will likely need sleep study as an outpatient. Did also discuss with him diet and exercise. Continue with his aspirin, lisinopril, and metoprolol. And discussed with him the plan for discharge today and he expressed understanding of the risk and benefits of going home and would like to go home today. Patient Problems: Active and Suspected Problems (Last Updated 03/18/20 @ 11:49 by Soraida Rider) Pulmonary hypertension (Acute) PVC (premature ventricular contraction) (Acute) Shortness of breath (Acute) - Physical Exam Vitals/I&O's: Vital Signs Temp Pulse Resp BP Pulse Ox 97.9 F 63 17 117/51 L 95 03/18/20 13:36 03/18/20 13:36 03/18/20 13:36 03/18/20 13:36 03/18/20 13:36 Oxygen Flow Rate (L/min) 2 Oxygen Delivery Method Room Air Weight: 244 lb 4.355 oz Body Mass Index (BMI) 44.6 Intake and Output for Last 24 Hours 03/16/20 03/17/20 03/18/20 23:59 23:59 23:59 Intake Total 1140 / 1140 700 / 900 766.25 / 766.25 Output Total 600 / 600 Balance 1140 / 1140 100 / 300 766.25 / 766.25 General: Alert, Oriented x3, Cooperative, No apparent distress HEENT: Atraumatic, PERRLA, EOMI, Normocephalic Oral: Moist Mucosa Neck: Supple, No JVD Lungs: Normal air movement, No rhonchi, No wheeze, No rales, Diminished Cardiovascular: Regular rate, Regular Rhythm, Normal S1, Normal S2, No murmurs Abdomen: Soft, Non Tender, Non-Distended, No Hepato-splenomegaly, Obese Extremities: No edema, Capillary Refill Less than 3 Seconds Skin: No rashes, No breakdown Neurological: Neuro grossly intact, Sensory exam intact to light touch and pain Psych/Mental Status: Normal Affect, Appropriate Microbiology Past 72 Hours 03/15/20 21:30 Mucosa - Nose SARS-CoV-2 Antigen (Rapid) - Final Laboratory Results 03/18/20 04:50: WBC 7.4, RBC 5.12, Hgb 15.4, Hct 48.5, MCV 94.7 H, MCH 30.1, MCHC 31.8 L, RDW Std Deviation 44.3 H, RDW Coeff of Cristofer 12.7, Plt Count 176, MPV 10.4 03/18/20 04:50: PT 13.3, INR 1.1 03/18/20 04:50: Sodium 141, Potassium 4.0, Chloride 110 H, Carbon Dioxide 27.0, Anion Gap 4 L, BUN 22 H, Creatinine 1.17, Estim Creat Clear Calc 44.07, Est GFR (MDRD) Af Amer 79, Est GFR (MDRD) Non-Af 65, BUN/Creatinine Ratio 18.8, Glucose 88, Calcium 8.5 03/18/20 07:55: Specimen Type ART, pH 7.37, Bicarbonate Actual 30.8 H, Total CO2 32, Base Excess 6 H, O2 Saturation 93 L, ABG pCO2 53.3 H, ABG pO2 69 L 03/18/20 08:08: Specimen Type FRANCISCO, VBG pH 7.34, VBG pO2 34, VBG HCO3 29 H, VBG Total CO2 30, VBG O2 Sat (Calc) 61, VBG Base Excess 3, POC Mix VBG pCO2 Pt Tmp 53.0 H 03/18/20 08:26: Specimen Type FRANCISCO, VBG pH 7.32, VBG pO2 31, VBG HCO3 29 H, VBG Total CO2 31, VBG O2 Sat (Calc) 54, VBG Base Excess 3, POC Mix VBG pCO2 Pt Tmp 55.7 H 03/18/20 08:31: Specimen Type FRANCISCO, VBG pH 7.31 L, VBG pO2 34, VBG HCO3 29 H, VBG Total CO2 31, VBG O2 Sat (Calc) 59, VBG Base Excess 3, POC Mix VBG pCO2 Pt Tmp 57.9 H 03/18/20 08:58: Specimen Type FRANCISCO, VBG pH 7.30 L, VBG pO2 35, VBG HCO3 29 H, VBG Total CO2 31, VBG O2 Sat (Calc) 60, VBG Base Excess 2, POC Mix VBG pCO2 Pt Tmp 58.5 H Discharge Activity: Return to Normal Activity Call your doctor if your incision/area has: Swelling at the incision site Call your doctor if you observe: Fever of 101 or Higher, Shortness of breath, Dizziness, Fainting spells, Swelling in the ankles, Chest pain, Increased palpitations (irregular heartbeat) Home Medications: Medications to take at Discharge Atorvastatin Calcium [Lipitor] 40 mg PO QHS 10/16/16 aspirin 81 mg tablet,delayed release 81 mg PO BID tab 09/07/18 lisinopril 20 mg tablet 10 mg PO DAILY tab 04/26/19 acetaminophen 500 mg tablet 1,000 mg PO Q8 PRN tab 07/25/19 metoprolol tartrate 50 mg tablet 50 mg PO BID #60 tab 01/30/20 Furosemide [Lasix] 20 mg PO DAILY #30 tab 03/18/20 Following Prescriptions Were Given to Patient: Furosemide [Lasix] 20 mg PO DAILY #30 tab Transmission Status: Received by [facility] Other Amb Orders: Pulmonary Medicine Location: None Selected Primary Care Physician: Rukhsana Mayfield MD [Primary Care Provider] - Please follow up with your Primary Care Physician in: 3-5 days Please Follow Up With: Soraida Jordan PA, PA When: 2 weeks Please Follow Up With: PULMONARY FUNCTION MARY When: 2-4 weeks Please Follow Up With: Karly Stover NP, MA[employer]GER [employer] When: 2-4 weeks Please Follow Up With: Rukhsana Mayfield MD Patient Instructions: Understanding Coronary Artery Disease (CAD), Pulmonary Hypertension, Your Heart is at Risk Disposition: Home Minutes spent on discharge:: 35 Patient Condition:: Stable Medical Necessity - Tobacco Use Smoking Status: Never smoker Meaningful Use Info Meaningful Use Diagnoses (Choose all that apply): None applicable Inpatient E&M: 60173 Disch Hosp
--- NOTE | 2020-03-19 13:43 | CASEMGMT ---
NOLVIA YBARRA Discharge F/U Phone Call LACE: 11 Strata: 3 Discharge date: 03/18/20 Call date: 03/19/20 Call time: 1343 Admission dx: Dyspnea, bigeminy Pt states has been doing 'ok' since discharge. Pt states no questions regarding discharge instructions or medications at this time. Pt states has f/u appts scheduled and plans to keep. Pt states no suggestions for [facility] at this time and pt voices no further questions/concerns/needs at this time. S[place]en NOLVIA YBARRA
== END 2020-03-18 16:16 | disposition home or self-care (01) | DRG 287 ==
LOC: ED 21:21 → PCU 21:52
PROVIDERS: Internal Medicine Cardiovascular Disease; Nurse Practitioner Family; Admitting Provider Hospitalist; Emergency Provider Emergency Medicine; PCP Internal Medicine; Visit Provider Family Medicine
DX: I27.20 Pulmonary hypertension, unspecified (principal); I25.810 Atherosclerosis of coronary artery bypass graft(s) without angina pectoris; Z68.42 Body mass index [BMI] 45.0-49.9, adult; I25.10 Atherosclerotic heart disease of native coronary artery without angina pectoris; R00.8 Other abnormalities of heart beat; R09.02 Hypoxemia; I49.3 Ventricular premature depolarization; I12.9 Hypertensive chronic kidney disease with stage 1 through stage 4 chronic kidney disease, or unspecified chronic kidney disease; N18.30 Chronic kidney disease, stage 3 unspecified; Z20.822 Contact with and (suspected) exposure to COVID-19; E78.5 Hyperlipidemia, unspecified; N40.1 Benign prostatic hyperplasia with lower urinary tract symptoms; G47.33 Obstructive sleep apnea (adult) (pediatric); E66.01 Morbid (severe) obesity due to excess calories; Z79.01 Long term (current) use of anticoagulants; Z79.82 Long term (current) use of aspirin; Z79.899 Other long term (current) drug therapy; Z85.038 Personal history of other malignant neoplasm of large intestine; Z95.3 Presence of xenogenic heart valve; Z90.49 Acquired absence of other specified parts of digestive tract; Z95.1 Presence of aortocoronary bypass graft; Z96.641 Presence of right artificial hip joint
CPT/HCPCS: 36415; 36600; 71045; 78452; 80048; 82803; 83735; 84443; 84484; 85025; 85027; 85610; 87426; 93005; 93017; 93306; 93461; 93567; 99152; 99153; 99285; A9500; J7030; Q9957; Q9967; A4216; C1751; C1769; C1894; C8929; J2785

== ENCOUNTER → 2020-04-02 08:26 | Outpatient (CLI) | payer MEDICARE, SELFPAY ==
[2020-03-15 22:33] VITALS: BMI 44.6
--- NOTE | 2020-04-03 05:53 | PFTCOMP ---
COMPLETE PULMONARY FUNCTION TEST INTERPRETATION Brief HPI: Patient is a 74 year old male, currently under the care of Dr. Rhoades, who presents to [facility] for complete pulmonary function tests secondary to diagnosis of dyspnea. Respiratory therapist reports good effort and reproducible results. Interpretation: Forced expiration spirometry shows no large airways obstructive ventilatory defect with an FEV1 of 103% predicted. There is no significant bronchodilator response by strict ATS criteria. Spirograms are of good quality and plateau normally. The respiratory flow volume loop shows a normal pattern. Lung volumes by body plethysmography show a normal total lung capacity at 5.04 L, 110% predicted. All other lung volumes are within normal limits. Diffusion capacity by carbon monoxide is normal at 130% predicted. The airway resistance is normal. No previous pulmonary function tests were available for review. Impression: Normal pulmonary function tests
== END ==
PROVIDERS: PCP Internal Medicine; Referring Provider Internal Medicine Cardiovascular Disease; Visit Provider Internal Medicine Cardiovascular Disease
DX: I25.10 Atherosclerotic heart disease of native coronary artery without angina pectoris (principal); R06.02 Shortness of breath; E78.5 Hyperlipidemia, unspecified; I49.3 Ventricular premature depolarization; Z95.1 Presence of aortocoronary bypass graft; Z95.2 Presence of prosthetic heart valve
CPT/HCPCS: 94060; 94726; 94729

== ENCOUNTER → 2020-04-25 22:51 | Outpatient (CLI) | payer MEDICARE, SELFPAY ==
[2020-04-11 13:12] VITALS: BMI 44.6
== END ==
PROVIDERS: PCP Internal Medicine; Referring Provider Nurse Practitioner Acute Care; Visit Provider Nurse Practitioner Acute Care
DX: G47.33 Obstructive sleep apnea (adult) (pediatric) (principal)
CPT/HCPCS: 95811

== ENCOUNTER → 2020-05-13 20:04 | Outpatient (CLI) | payer MEDICARE, SELFPAY ==
[2020-04-11 13:12] VITALS: BMI 44.6
== END ==
PROVIDERS: PCP Internal Medicine; Referring Provider Nurse Practitioner Acute Care; Visit Provider Nurse Practitioner Acute Care
DX: G47.33 Obstructive sleep apnea (adult) (pediatric) (principal)
CPT/HCPCS: 95811

== ENCOUNTER → 2020-06-03 12:14 | Outpatient (CLI) | payer MEDICARE, SELFPAY ==
[2020-04-11 13:12] VITALS: BMI 44.6
== END ==
PROVIDERS: PCP Internal Medicine; Visit Provider Nurse Practitioner Acute Care
DX: Z45.89 Encounter for adjustment and management of other implanted devices (principal)

== ENCOUNTER 2020-10-21 11:15 | Day surgery (SDC) | payer MEDICARE, SELFPAY ==
[2020-07-19 06:34] VITALS: BMI 46.3
--- NOTE | 2020-10-21 | COLBX_PTH ---
PATIENT: JAYASHREE VELA LOC: EN U#:[id number] AGE/SX: 74/M ROOM: RE10/21/[address]: Dr. Willam Valiente MD : 1945 BED: DIS: 10/21/2020 SPEC #: [id number] RECD: 10/21/20 13:02 STATUS: BELINDA ALY #: [id number] JOE: 10/21/20 00:[address]: Willam Valiente DEPT: SURGICAL PATHOLOGY RECD BY: Eder Choi ENTERED: 10/21/20 13:02 SP TYPE: COLON BX OTHR DR: Dr. Rukhsana Mayfield MD Tissues: Sigmoid colon biopsy Procedures: Surgery Specimen Level IV HEADER OPERATION: Colonoscopy (MAC) PRE-OP DIAGNOSIS: History of colon cancer TISSUE SUBMITTED: Sigmoid colon biopsy MICROSCOPIC DIAGNOSIS Sigmoid colon, biopsy: Tubular adenoma. GIOVANI:sylwia 10/22/2020 MICROSCOPIC DESCRIPTION Slides are reviewed. GROSS DESCRIPTION Received in fixative is one container labeled with the patient's name and designated sigmoid colon biopsy. The specimen consists of one irregular fragment of light mccullough soft tissue that measures 0.3 x 0.2 x 0.1 cm. The specimen is totally submitted in one cassette. / SJ:sylwia 10/21/20 TC:1 CPT: 24208
[2020-10-21 11:45] VITALS: BP 143/95; PULSE 73; RESP 16; TEMP 36.9; O2SAT 94; BMI 45.6
[2020-10-21] MEDS: Lactated Ringers 1,000 ML 100 ML IV (11:53)
--- NOTE | 2020-10-21 12:12 | HP.PCM_ITS ---
History and Physical Date of Admission: 10/21/20 HISTORY AND PHYSICAL ? Madison Juana Hanks 1945 ? REFERRING PHYSICIAN: Rukhsana Mayfield MD ? CHIEF COMPLAINT: Consult (colonoscopy consultation) ? HPI: The patient is a 74 year old male referred for endoscopy. Patient has a personal history of colon cancer and is overdue for surveillance colonoscopy. His colon mass was initially discovered on colonoscopy by Dr. Buckner 05/09/18. He subsequently underwent diagnostic laparoscopic, lysis of adhesions, exploratory laparotomy, right hemicolectomy and lymph node dissection, lndl-cp-xive ileocolostomy and omentoplasty by Dr. Vernon on 06/09/18. 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 ? Patient saw Meron Pang CNP in follow-up in April 2019 to set up surveillance colonoscopy, but that was unable to be completed due to - situation. ? Patient denies any change in bowel habits, weight changes, blood in stools, black tarry stools or abdominal pain. The patient notes no upper GI complaints. ? Patient's past medical history is significant for ASHD, hypertension, hyperlipidemia, sleep apnea, chronic kidney disease, obesity, personal and family history of colon cancer. Patient follows with Dr. Mayfield in primary care for his chronic medical conditions, as well as Dr. Rhoades in cardiology and Dr. Quiñonez in pulmonology. ? ? PAST MEDICAL HISTORY PAST MEDICAL HISTORY Diagnosis Date ? ASHD (arteriosclerotic heart disease) ? ? Embolism and thrombosis of unspecified site 11/05 ? 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 Essential hypertension, benign ? ? Family history of malignant neoplasm of gastrointestinal tract ? ? brother at 39 ? Heart murmur ? ? Hypertrophy of prostate with urinary obstruction and other lower urinary tract symptoms (LUTS) ? ? Other and unspecified hyperlipidemia ? ? Personal history of colonic polyps ? ? adenoma removed in 2000 ? ? PAST SURGICAL HISTORY PAST SURGICAL HISTORY Procedure Laterality Date ? COLONOSCOP W/ OR W/O BRSH SPEC ? 03/12/14 ? Colonoscopy ? COLONOSCOP W/ OR W/O BRSH SPEC ? 05/09/2018 ? Colonoscopy ? COLONOSCOPY ? 12/30/00 ? adenomatous polyp removed ? HIP SURGERY HX Right ? ? ? PAST SURGICAL HISTORY OF ? 1988 ? ORIF right ankle fracture -KIZZY later-some hardware remains ? REMOVAL OF HYDROCELE,TUNICA,UNILAT ? 05/01 ? left ? REPLACEMENT AORTIC VALVE W BYPASS ? 2015 ? Tissue valve, bypass ? ? ? CURRENT MEDICATIONS Current Outpatient Medications Medication Sig ? CPAP ? ? metoprolol tartrate, short acting, (LOPRESSOR) 50 mg tablet Take 0.5 tablets by mouth twice daily. ? atorvastatin (LIPITOR) 40 mg tablet Take 1 tablet by mouth daily at bedtime. ? tamsulosin (FLOMAX) 0.4 mg Take 1 capsule by mouth daily at bedtime for 90 doses. ? lisinopril (ZESTRIL, PRINIVIL) 40 mg tablet Take 1 tablet by mouth once daily. ? ergocalciferol 50,000 unit capsule (VITAMIN D2, DRISDOL) Take 1 capsule by mouth two times a week. TO BE TAKEN ORALLY DIRECTED. Take 1 tablet by mouth twice weekly [id number], then decrease to 1 tablet weekly. ? aspirin 81 mg chewable tablet Take 2 tablets by mouth once daily. ? albuterol HFA (VENTOLIN HFA) 90 mcg/actuation inhaler Inhale 2 Puffs as instructed every 4 hours as needed for Wheezing/Shortness of Breath. (Patient not taking: Reported on 10/08/2020 ) ? polyethylene glycol 3350 (MIRALAX, GLYCOLAX) 17 gram/dose powder Use as directed for Miralax / Gatorade Bowel Prep Kit ? Bisacodyl (DULCOLAX) 5 mg tab Use as directed for Miralax / Gatorade Bowel Prep Kit ? Gatorade Sports Drink Use as directed for Miralax / Gatorade Bowel Prep Kit ? Current Facility-Administered Medications Medication Dose Route Frequency ? perflutren lipid microspheres 1.3 mL in NaCl (PF) 0.9% 10 mL injection (DEFINITY) INTRAVENOUS DIRECTED PRN ? sodium chloride 0.9 % (flush) 10 mL (BD POSIFLUSH) 10 mL INTRAVENOUS DIRECTED PRN ? ? ALLERGIES: Patient has no known allergies. ? PERSONAL HISTORY: SOCIAL HISTORY Social History ? Tobacco Use ? Smoking status: Never Smoker ? Smokeless tobacco: Never Used Vaping Use ? Vaping Use: Never used Substance Use Topics ? Alcohol use: No ? Drug use: No ? FAMILY HISTORY: FAMILY HISTORY FAMILY HISTORY Problem Relation Age of Onset ? None Mother ? ? Heart Father ? ? Colon Cancer Brother 39 ? Heart Brother ? ? ? REVIEW OF SYMPTOMS: The review of systems data was entered by the nurse and reviewed by me ? Nursing Notes: Puja Campbell RN 10/08/2020 1:51 PM Signed REVIEW OF SYSTEMS: General: The patient denies fatigue, denies weight loss, denies weight gain, denies feeling hot, and denies feelings of cold. Eyes: The patient denies glaucoma, denies eye injury/surgery, does not wear glasses or contacts. Ear/Nose/Throat: The patient denies allergies, denies hayfever, denies ear infections, and denies bloody noses. Cardiovascular: The patient denies chest pain, denies heart disease, NOTES high blood pressure,denies cardiac stent, denies prior heart attack, denies irregular heart beat, NOTES high cholesterol, denies poor circulation, denies heart failure, other cardiac issues, denies claudication, denies cold feet, denies peripheral arterial stent. Respiratory: The patient denies tuberculosis, denies pneumonia, denies frequent cough, denies pulmonary embolism, denies shortness of breath, and denies coughing up blood. Gastrointestinal: The patient denies difficulty swallowing, denies acid reflux, denies ulcers, denies vomiting, denies jaundice/hepatitis, denies gallbladder problems, denies black or tarry stools, denies hemorrhoids, denies bleeding from rectum, denies diverticulitis, denies constipation, denies diarrhea, denies loss of stool control, and denies hernias. Kidney/Bladder: The patient denies kidney stones, denies urine infections, and denies bloody urine. Skin: The patient denies a history of skin cancer, denies bleeding/changing moles, and denies a history of skin rash. Neurologic: The patient denies a history of epilepsy/convulsions, denies headaches, denies head/spinal injuries, and denies stroke/TIA. Psychiatric: The patient denies psychiatric medications, denies depression, and denies voices, denies substance abuse. Endocrine: The patient denies thyroid disorders, denies diabetes, and denies hormonal problems. Hematologic: The patient denies a history of bruising, denies bleeding, and denies anemia, denies blood clots. Infections: The patient denies a history of measles and mumps, denies rheumatic fever, and denies sexually transmitted diseases. Musculoskeletal: The patient denies back pain/injury, denies back problems, denies sciatica, denies knee/foot trouble, denies arthritis, or denies gout. ? ? When was patient's last Mammogram screening? N/A ? Last Colonoscopy: 05/09/2018 ? ? Puja Campbell RN I have confirmed and edited as necessary, the PFSH and ROS obtained by others. Nancy Aguilera PA-C ? PHYSICAL EXAMINATION: ? General: The patient is 74 year old male, well nourished, well hydrated in no acute distress. The patient is oriented to time, place, and person. ? VITALS: Blood pressure 142/96, pulse 84, temperature 36.5 ?C (97.7 ?F), height 157.5 cm (5' 2), weight 116 kg (255 lb 12.8 oz), SpO2 94 %. Body mass index is 46.79 kg/m?. ? HEENT: Normal cephalic, ataumatic, pupils are equally round, sclera are anicteric, mucous membranes are moist, oropharynx is clear. Neck has no masses, asymmetry or lymphadenopathy. ? Respiratory: Clear to auscultation and percussion. Normal respiratory excursion and pattern. ? Cardiac: Examination is regular rate and rhythm. Normal S1/S2 ? Abdominal exam: Soft, nontender, with no palpable masses. No hepatosplenomegaly. No palpable hernias. ? Extremities: no clubbing, cyanosis or edema. No adenopathy. ? LABORATORY VALUES: As Noted ? RADIOLOGIC STUDIES: As Noted ? ? Assessment IMPRESSION: encounter for surveillance colonoscopy, personal history of colon cancer ? PLAN: I have reviewed my findings with the surgeon. Will plan for lower endoscopy. We discussed the risks and benefits of the planned endoscopy. I have informed the patient that complications can occur including failure to complete the endoscopy and perforation. The patient had the opportunity to ask questions concerning the planned endoscopy. My staff has also explained the procedure to the patient in understandable terms and has given the patient printed material concerning the procedure. The patient freely consents to surgery. ? The patient was offered a surgery/procedure at a [facility] facility. I have counseled the patient regarding the risk of exposure to and/or potential harm posed by the COVID-19 virus with having a surgery/procedure at this time versus the risk of? delaying the surgery/procedure. It is not possible to know either the risk of delaying the surgery or procedure or chance of getting an infection with perfect accuracy, but a joint decision was made between the patient and myself?to proceed at this time with endoscopy. ? ? I plan to use Golytely bowel preparation ? Request for cardiac clearance sent to Dr. Rhoades's office ? The patient has medical comorbidities for which we will plan for the procedure to be performed under Monitored Anesthetic Care. ? ? ? Diagnoses: (Z12.11) Encounter for screening for malignant neoplasm of colon (primary encounter diagnosis) (Z85.038) Personal history of colon cancer ? I spent a total of 35 minutes on the date of the service which included preparin g to see the patient, [id number] patient care, completing clinical documentation, obtaining and/or reviewing separately obtained history, performing a medically appropriate examination, counseling and educating the patient/family/caregiver, ordering medications, tests, or procedures and communicating with other HCPs (not separately reported). ? Nancy Aguilera PA-C I have re-examined the patient. There are no clinical changes since date of exam.
[2020-10-21 12:37] VITALS: BP 143/95; BP 98/76; PULSE 96; RESP 14; TEMP 36.4; O2SAT 96
[2020-10-21 12:43] VITALS: BP 114/79; BP 143/95; PULSE 87; RESP 16; O2SAT 95
[2020-10-21 12:45] VITALS: BP 121/71; BP 143/95; PULSE 84; RESP 16; O2SAT 92
[2020-10-21 12:51] VITALS: BP 117/75; BP 143/95; PULSE 89; RESP 16; TEMP 36.9; O2SAT 92
--- NOTE | 2020-10-21 12:59 | OP.COLON_ITS ---
Patient Name: Arnol Hanks Procedure Date: 10/21/2020 12:10 PM Date of : 1945 Age: 74 Procedure: Colonoscopy Indications: High risk colon cancer surveillance: Personal history of colon cancer Providers: Willam Valiente MD Medicines: See the Anesthesia note for documentation of the administered medications Patient Profile: This is a 74 year old male. Refer to note in patient chart for documentation of history and physical. Last Colonoscopy: 2018. Complications: No immediate complications. Estimated blood loss: Minimal. Procedure: Pre-Anesthesia Assessment: - Prior to the procedure, a History and Physical was performed, and patient medications and allergies were reviewed. The patient's tolerance of previous anesthesia was also reviewed. The risks and benefits of the procedure and the sedation options and risks were discussed with the patient. All questions were answered, and informed consent was obtained. Prior Anticoagulants: The patient has taken no previous anticoagulant or antiplatelet agents. ASA Grade Assessment: III - A patient with severe systemic disease. After reviewing the risks and benefits, the patient was deemed in satisfactory condition to undergo the procedure. After I obtained informed consent, the scope was passed under direct vision. Throughout the procedure, the patient's blood pressure, pulse, and oxygen saturations were monitored continuously. The colonoscope was introduced through the anus and advanced to the ileocolonic anastomosis. The colonoscopy was performed without difficulty. The patient tolerated the procedure well. The quality of the bowel preparation was good. Scope In: 12:21:52 PM Scope Withdrawal Time 0 hours 12 minutes 53 seconds Scope Out: 12:39:03 PM Total Procedure Duration Time 0 hours 17 minutes 10 seconds Findings: A 5 mm polyp was found in the sigmoid colon. The polyp was sessile. The polyp was removed with a jumbo cold forceps. Resection and retrieval were complete. Non-bleeding internal hemorrhoids were found during retroflexion. The hemorrhoids were mild and small. There was evidence of a prior end-to-end colo-colonic anastomosis in the transverse colon. This was patent and was characterized by healthy appearing mucosa. The anastomosis was traversed. Impression: - One 5 mm polyp in the sigmoid colon, removed with a jumbo cold forceps. Resected and retrieved. - Non-bleeding internal hemorrhoids. - Patent end-to-end colo-colonic anastomosis, characterized by healthy appearing mucosa. Recommendation: - Discharge patient to home. - Resume previous diet. - Continue present medications. - Await pathology results. - Repeat colonoscopy in 1 year for surveillance. - Return to primary care physician in 1 week. Procedure Code(s): --- Professional --- 34117, Colonoscopy, flexible; with biopsy, single or multiple Diagnosis Code(s): --- Professional --- Z85.038, Personal history of other malignant neoplasm of large intestine D12.5, Benign neoplasm of sigmoid colon K64.8, Other hemorrhoids Z98.0, Intestinal bypass and anastomosis status CPT copyright 2017 [employer]. All rights reserved. The codes documented in this report are preliminary and upon lookback coordinator review may be revised to meet current compliance requirements. MD Willam Gallegos MD 10/21/2020 12:59:25 PM This report has been signed electronically. Number of Addenda: 0 Note Initiated On: 10/21/2020 12:10 PM
--- NOTE | 2020-10-21 13:01 | OP.CCLET_ITS ---
10/21/2020 Rukhsana Mayfield [address] [phone] Re : Colonoscopy procedure for [place] Dear Dr. Mayfield This procedure was performed on Wednesday, October 21, 2020. My impressions and recommendations are as follows: Impressions : - One 5 mm polyp in the sigmoid colon, removed with a jumbo cold forceps. Resected and retrieved. - Non-bleeding internal hemorrhoids. - Patent end-to-end colo-colonic anastomosis, characterized by healthy appearing mucosa. Recommendations : - Discharge patient to home. - Resume previous diet. - Continue present medications. - Await pathology results. - Repeat colonoscopy in 1 year for surveillance. - Return to primary care physician in 1 week. My findings are described in the full procedure note, which is enclosed. If I can be of further assistance, please feel free to contact me at Doctor phone number(s): , Fax: [phone], Work: . Sincerely, MD Willam Gallegos MD 10/21/2020 12:59:25 PM This report has been signed electronically.
[2020-10-21 13:12] VITALS: BP 143/95
== END 2020-10-21 13:17 ==
LOC: EN 11:15 → AC 11:17
PROVIDERS: PCP Internal Medicine; Referring Provider Internal Medicine; Visit Provider Surgery
PROC: 0DJD8ZZ Inspection of Lower Intestinal Tract, Via Natural or Artificial Opening Endoscopic (ICD-10-PCS; CPT 45378; principal; 2020-10-21 12:25)
DX: Z12.11 Encounter for screening for malignant neoplasm of colon (principal); D12.5 Benign neoplasm of sigmoid colon; K64.8 Other hemorrhoids; Z98.0 Intestinal bypass and anastomosis status; Z85.038 Personal history of other malignant neoplasm of large intestine; I25.10 Atherosclerotic heart disease of native coronary artery without angina pectoris; J44.9 Chronic obstructive pulmonary disease, unspecified; I12.9 Hypertensive chronic kidney disease with stage 1 through stage 4 chronic kidney disease, or unspecified chronic kidney disease; N18.9 Chronic kidney disease, unspecified; I35.1 Nonrheumatic aortic (valve) insufficiency; E78.5 Hyperlipidemia, unspecified; N40.1 Benign prostatic hyperplasia with lower urinary tract symptoms; M19.90 Unspecified osteoarthritis, unspecified site; G47.33 Obstructive sleep apnea (adult) (pediatric); E66.01 Morbid (severe) obesity due to excess calories; Z68.42 Body mass index [BMI] 45.0-49.9, adult; Z79.82 Long term (current) use of aspirin; Z79.899 Other long term (current) drug therapy; Z87.19 Personal history of other diseases of the digestive system; Z95.1 Presence of aortocoronary bypass graft; Z95.2 Presence of prosthetic heart valve; Z96.641 Presence of right artificial hip joint; Z90.49 Acquired absence of other specified parts of digestive tract; Z80.0 Family history of malignant neoplasm of digestive organs
CPT/HCPCS: 45380; 88305; J7120; J2405

== ENCOUNTER → 2020-12-16 07:12 | Outpatient (CLI) | payer MEDICARE, SELFPAY ==
--- NOTE | 2020-12-16 09:31 | NEURO_ITS ---
NCS and/or EMG Patient Report Ordering Doctor: Orlando Cruz DATE OF SERVICE: 12/16/20 Indication: Bilateral hand numbness, tingling and burning. Symptoms are symmetric and have been present for ~5 years. No neck pain. Evaluate for median neuropathy. Findings: Nerve conduction studies were performed in the right and left upper extremities. The right median motor study recording the abductor pollicis brevis showed an absent response. The right ulnar motor study recording the abductor digiti minimi showed a normal amplitude, normal distal latency and normal conduction velocity. No conduction block or focal slowing was present across the elbow. Right median-ulnar lumbrical / interosseous motor latencies showed an absent median response. The right median sensory response recording digit two showed an absent response. The right ulnar sensory response recording digit five showed a borderline amplitude, normal latency and borderline conduction velocity. The right radial sensory response recording over the extensor snuff box showed a normal amplitude, latency and conduction velocity. The left median motor study recording the abductor pollicis brevis showed an absent response. The left ulnar motor study recording the abductor digiti minimi showed a normal amplitude, normal distal latency and normal conduction velocity. No conduction block or focal slowing was present across the elbow. Left median- ulnar lumbrical / interosseous motor latencies showed an absent median response. The left median sensory response recording digit two showed an absent response. The left ulnar sensory response recording digit five showed a borderline amplitude, normal latency and normal conduction velocity. The left radial sensory response recording over the extensor snuff box showed a normal amplitude, latency and conduction velocity. Needle EMG of the left upper extremity and cervical paraspinal muscles was performed. Active denervation was seen in the abductor pollicis brevis. No active denervation was seen in any other muscle. Motor units in the abductor pollicis brevis were large amplitude and long duration with moderately reduced recruitment. All other motor unit morphology, activation and recruitment patterns were normal. Limited needle EMG of the left upper extremity muscles was performed. Active denervation was seen in the abductor pollicis brevis, but not the flexor carpi radialis. No volitional motor units were seen in the abductor pollicis brevis. Motor unit morphology, activation and recruitment patterns in the flexor carpi radialis were normal. Impression: This is a markedly abnormal study. 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 The abnormalities are non-localizing giving the absent median responses. The normal needle examination of the flexor carpi radialis muscles would implicate a lesion distal to this muscles. A neurom uscular ultrasound could be considered to further localize and characterize this findings. Lastly, there is no evidence of a superimposed cervical radiculopathy in the left upper extremity. Yoan Pineda D.O. Multi Select Codes Neurology Neurology Interp Codes: 76091-42 [facility] tst done w/nerv tst ferrara (interp) (59), 61975-94 [facility] test done w/n test comp (interp) and 65072-10 Nrv cndj test 13/> studies (interp)
== END ==
PROVIDERS: PCP Internal Medicine; Referring Provider Specialist; Visit Provider Specialist
DX: G56.03 Carpal tunnel syndrome, bilateral upper limbs (principal)
CPT/HCPCS: 95885; 95886; 95913

== ENCOUNTER 2021-04-04 15:59 | Inpatient (IN) | payer MEDICARE, SELFPAY ==
[2021-04-04 16:00] VITALS: BP 167/107; PULSE 85; RESP 16; TEMP 36; O2SAT 97; BMI 44.2
--- NOTE | 2021-04-04 16:22 | EDS_ITS ---
HPI History of Present Illness Chief Complaint: Lower Extremity Injury Narrative Narrative: 75-year-old male presenting with left knee pain. He states he was getting out of his tractor and slipped. He states he was trying to grab the pipe on the side of the tractor to lower himself down but missed the step as the tractor was tilted towards the driver utility worker side. He does not know how he hurt his knee he cannot recall whether he struck it on something or twisted it. He states he been able to walk on it since 1:00. He was able to drive home. He took Tylenol at home without relief. He denies head injury or LOC. He denies any other injuries or pain currently [facility] Medical History Aortic stenosis Arthritis Atherosclerosis of coronary artery of [place] heart without angina pectoris Benign prostatic hyperplasia with lower urinary tract symptoms Cancer Cardiology follow-up encounter COPD (chronic obstructive pulmonary disease) CPAP (continuous positive airway pressure) dependence Essential hypertension History of echocardiogram History of edema History of left heart catheterization (LHC) (~03/18/20) History of pulmonary function tests Hyperlipidemia Non-smoker KAMRAN (obstructive sleep apnea) Severe aortic insufficiency Shortness of breath on exertion Home Medications aspirin 81 mg tablet,delayed release 81 mg PO BID tab 09/07/18 [History Last Taken 04/04/21] acetaminophen 500 mg tablet 1,000 mg PO Q8 PRN tab 07/25/19 [History Last Taken 04/04/21 13:00] atorvastatin 40 mg tablet 40 mg PO QHS #90 tab 05/20/20 [Rx Last Taken 04/03/21] lisinopril 40 mg PO DAILY 04/04/21 [History Last Taken 04/04/21] metoprolol tartrate 25 mg PO BID 04/04/21 [History Last Taken 04/04/21] tamsulosin 0.4 mg PO QHS 04/04/21 [History Last Taken 04/03/21] Allergy/AdvReac Type Severity Reaction Status Date / Time No Known Allergies Allergy Verified 04/04/21 16:01 Family History Father Heart disease Brother Heart disease Brother Colon cancer Surgical History History of aortic valve replacement (06/14/14) History of carpal tunnel release History of colonoscopy History of coronary artery bypass graft (06/14/14) History of heart surgery History of open reduction and internal fixation (ORIF) procedure History of partial colectomy (~05/2018) History of right hip replacement (09/28/18) Social History Smoking Status: Never smoker alcohol intake: never substance use type: does not use caffeine: No ROS ROS ED Constitutional Constitutional ED: Denies chills or fever(s) Eyes Eyes: Denies blurry vision or diplopia ENT ENT ED: Denies rhinorrhea or sore throat Cardiovascular Cardiovascular: Denies chest pain or palpitations Respiratory/Chest Respiratory/Chest: Denies cough or dyspnea Gastrointestinal Gastrointestinal: Denies abdominal pain, nausea or vomiting Genitourinary Genitourinary ED: Denies dysuria Musculoskeletal Musculoskeletal: Reports other Details: Left knee pain Integumentary Denies Abrasions or rash Neurologic Neurologic: Denies headache(s) or weakness Psychiatric Psychiatric: Denies anxiety or depression EXAM Physical Exam Const Vital Signs: 04/04/21 16:00 Temperature 96.8 F L Temperature Source Temporal Pulse Rate 85 Respiratory Rate 16 Blood Pressure 167/107 H Blood Pressure Mean 127 Pulse Ox 97 Oxygen Delivery Method Room Air Positive well nourished General Appearance ED: NAD HEENT Reports moist mucous membranes normocephalic Eyes PERRL Resp normal respiratory effort and clear to auscultation bilaterally Cardio regular rate and regular rhythm Extremity Extremity Narrative: Tenderness palpation over left patella. There is some slight swelling here. There is ecchymosis over the medial aspect of the patella. Patient states he is unable to lift his leg up off the bed while keeping his knee extended. He is able to flex his hip. Pain is elicited in the infrapatellar region. Neuro oriented x3 and CN's II-XII intact bilaterally Sensorium / Orientation: alert Psych mental status grossly normal Skin Skin Narrative: Bruising over the left patella MDM MDM MDM Narrative Medical decision making narrative: Patient declined any analgesia for pain and states he is comfortable lying in the bed. I initially tried an x-ray of the left knee which on my interpretation showed no fracture or subluxation. There does appear to be a joint effusion. Radiologist does agree. Since the patient is having difficulty lifting his leg and he has pain below the knee but swelling above the knee I did speak with Dr. Doherty who came and evaluated the patient in ER and recommended a CT of the leg to see if there is a quadriceps tendon injury. CT was obtained which shows a hemarthrosis and an intramuscular hematoma in the rectus femoris. Radiologist does not comment on the quadriceps tendon. I spoke with Dr. Doherty who reviewed the CT and still has concern based on examination and a CT that there is a quadriceps injury. He recommended admission for MRI and possible surgery on Wednesday. Recommend admission to the hospitalist. Patient was discussed with the hospitalist and admitted to medical floor in stable condition. I did obtain basic lab work and his CBC is unremarkable. His creatinine was slightly elevated at 1.49 otherwise electrolytes are normal. This does appear to be near his baseline. Impression: 1. Quadriceps tendon tear left leg 2. Fall 3. Hemarthrosis left knee 4. Intramuscular hematoma of rectus femoris left leg Lab Data Labs: Laboratory Results - last 24 hr 04/04/21 04/04/21 18:30 18:30 WBC 10.7 RBC 4.93 Hgb 14.6 Hct 46.1 MCV 93.5 MCH 29.6 MCHC 31.7 L RDW Std Deviation 44.5 H RDW Coeff of Cristofer 13.0 Plt Count 195 MPV 9.8 Immature Gran % (Auto) 0.300 Neut % (Auto) 76.2 H Lymph % (Auto) 13.9 L [place] % (Auto) 8.7 Eos % (Auto) 0.5 Baso % (Auto) 0.4 Absolute Neuts (auto) 8.2 H Absolute Lymphs (auto) 1.49 Nucleated RBC % 0 Sodium 143 Potassium 4.4 Chloride 112 H Carbon Dioxide 26.0 Anion Gap 5 BUN 36 H Creatinine 1.49 H Estim Creat Clear Calc 35.54 Est GFR (MDRD) Af Amer 59 L Est GFR (MDRD) Non-Af 49 L BUN/Creatinine Ratio 24.2 H Glucose 147 H Calcium 8.3 L Radiography Diagnostic Testing: Clinical Impression(s) from Imaging Studies Knee X-Ray 04/04/21 16:38 IMPRESSION: Degenerative arthrosis. There is a moderate volume joint effusion. There is non specific soft tissue swelling. Electronically Signed: Trent Cordova MD at 17:16 EST , Lower Extremity CT 04/04/21 17:44 IMPRESSION: There is a moderate volume dense joint effusion. This suggests hemarthrosis. There is intramuscular hematoma overlying the rectus femoris muscle. Electronically Signed: Trent Cordova MD at 18:27 EST , Discharge Plan Disposition Disposition: Acute Care [facility] Discharge Date/Time: 04/04/21 19:56
--- NOTE | 2021-04-04 16:38 | RAD_ITS ---
STUDY: XR Knee Complete 4 Views or More 04/04/2021 5:14 PM REASON FOR EXAM: Male, 75 years old. PAIN TECHNIQUE: XR Knee Complete 4 Views or More COMPARISON: None. FINDINGS: Normal visualized distal femur. Normal visualized proximal tibia and fibula. Normal proximal tibiofibular articulation. There is moderate degenerative arthrosis of the medial femorotibial compartment with moderate joint space narrowing. There is mild degenerative arthrosis of the lateral femorotibial compartment. There is mild degenerative arthrosis of the patellofemoral articulation. There is a moderate volume joint effusion. There is non specific soft tissue swelling. There are atherosclerotic calcifications. RAD/Knee 4 or More Views IMPRESSION: Degenerative arthrosis. There is a moderate volume joint effusion. There is non specific soft tissue swelling. Electronically Signed: Trent Cordova MD at 17:16 EST ,
--- NOTE | 2021-04-04 17:44 | CT_ITS ---
EXAM: CT LEFT LOWER EXTREMITY WITHOUT INTRAVENOUS CONTRAST CLINICAL INDICATION: knee pain -- Include distal femur and proximal tibia TECHNIQUE: Helically acquired images were obtained of the left lower extremity without intravenous contrast. 2-D reformats were performed by the technologist. This CT exam was performed using one or more of the following dose reduction techniques: automated exposure control, adjustment of the mA and/or kV according to patient size, and/or use of iterative reconstruction technique. This report was created using [employer] report generation technology. COMPARISON: Plain film done earlier. FINDINGS: BONES/JOINTS: There is a moderate volume dense joint effusion. This suggests hemarthrosis. There is intramuscular hematoma overlying the rectus femoris muscle. There is moderate degenerative arthrosis of the medial femorotibial compartment with moderate joint space narrowing. There is mild degenerative arthrosis of the lateral femorotibial compartment. There is mild degenerative arthrosis of the patellofemoral articulation. No acute fracture. No subluxation. Normal alignment. SOFT TISSUES: There is non specific soft tissue swelling. VASCULATURE: There are atherosclerotic calcifications. CT/Extremity Lower without Contra IMPRESSION: There is a moderate volume dense joint effusion. This suggests hemarthrosis. There is intramuscular hematoma overlying the rectus femoris muscle. Electronically Signed: Trent Cordova MD at 18:27 EST ,
[2021-04-04 18:54] LABS: Absolute Lymphocyte Count 1.49 X10^3/uL (0.83-4.51); Absolute Neutrophil Count 8.2 X10^3/uL (2.0-7.7); Basophil# 0.04 X10^3/uL; Basophil% 0.4 % (0-1); Eosinophil# 0.05 X10^3/uL; Eosinophils% 0.5 % (0-5); Hematocrit 46.1 % (40-54); Hemoglobin 14.6 g/dL (13.0-16.5); Lymphocyte # 1.49 X10^3/ul (0.83-4.51); Lymphocyte % 13.9 % (19-41); Mean Corp Hgb Conc 31.7 g/dL (32-36); Mean Corpuscular Hgb 29.6 pg (27.0-32.0); Mean Corpuscular Volume 93.5 fL (80-94); Mean Platelet Vol. 9.8 fl (6.2-12.0); Monocyte# 0.93 X10^3/uL; Monocyte% 8.7 % (0-10); NRBC Flagged by Analyzer 0 % (0-5); Neutrophil # 8.16 X10^3/uL (2.7-7.7); Neutrophil % 76.2 % (47-70); Platelet Count 195 K/mm3 (150-450); RBC Distribution Width SD 44.5 fl (35.1-43.9); Red Blood Count 4.93 M/mm3 (4.6-6.2); White Blood Count 10.7 K/mm3 (4.4-11.0)
[2021-04-04 19:05] LABS: Anion Gap 5 (5-15); BUN 36 mg/dL (7-18); BUN/Creat Ratio 24.2 RATIO (10-20); Calcium,Total 8.3 mg/dL (8.5-10.1); Chloride 112 mmol/L (98-107); Creatinine, Serum 1.49 mg/dL (0.70-1.30); EST Glomerular Filtration Rate 49 mL/min (>60); Est Glom Filt Rate - Afr Amer 59 mL/min (>60); Estimated Creatinine Clearance 35.54 ml/min; Glucose 147 mg/dL (74-106); Potassium 4.4 mmol/L (3.5-5.1); Sodium Level 143 mmol/L (136-145)
--- NOTE | 2021-04-04 19:24 | PCM.HP.STD ---
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 His symptoms occurred same day of presentation. Therefore he developed excruciating left knee pain and swelling. He is unable ambulate or bear weight on the left knee secondary to excruciating pain. Knee x-ray was ordered by ED physician. Knee x-ray showed a joint effusion. Emergent department doctor discussed the case with orthopedic surgeon who saw patient at the ED and recommended lower extremity CT. The lower extremity x-ray showed intermuscular hematoma. Orthopedic surgeon is concerned about Quadriceps tendon rupture/tendon tear and recommend that patient be admitted for MRI and possible surgery. COUNTS INCLUDE 234 BEDS AT THE [facility] Medical History Aortic stenosis Arthritis Atherosclerosis of coronary artery of [place] heart without angina pectoris Benign prostatic hyperplasia with lower urinary tract symptoms Cancer Cardiology follow-up encounter COPD (chronic obstructive pulmonary disease) CPAP (continuous positive airway pressure) dependence Essential hypertension History of echocardiogram History of edema History of left heart catheterization (LHC) (~03/18/20) History of pulmonary function tests Hyperlipidemia Non-smoker KAMRAN (obstructive sleep apnea) Severe aortic insufficiency Shortness of breath on exertion Home Medications aspirin 81 mg tablet,delayed release 81 mg PO BID tab 09/07/18 [History Last Taken 04/04/21] acetaminophen 500 mg tablet 1,000 mg PO Q8 PRN tab 07/25/19 [History Last Taken 04/04/21 13:00] atorvastatin 40 mg tablet 40 mg PO QHS #90 tab 05/20/20 [Rx Last Taken 04/03/21] lisinopril 40 mg PO DAILY 04/04/21 [History Last Taken 04/04/21] metoprolol tartrate 25 mg PO BID 04/04/21 [History Last Taken 04/04/21] tamsulosin 0.4 mg PO QHS 04/04/21 [History Last Taken 04/03/21] Allergy/AdvReac Type Severity Reaction Status Date / Time No Known Allergies Allergy Verified 04/04/21 16:01 Family History Father Heart disease Brother Heart disease Brother Colon cancer Surgical History History of aortic valve replacement (06/14/14) History of carpal tunnel release History of colonoscopy History of coronary artery bypass graft (06/14/14) History of heart surgery History of open reduction and internal fixation (ORIF) procedure History of partial colectomy (~05/2018) History of right hip replacement (09/28/18) Social History Smoking Status: Never smoker alcohol intake: never substance use type: does not use caffeine: No ROS ROS Narrative Constitutional: Denies fever, chills, fatigue, anorexia and change in weight Eyes: Denies blurry vision, change in eye color, change in vision, discharge from eye(s), double vision, erythema, eye pain, loss of vision or other HEENT: Denies abnormal hearing, dysphagia, ear pain, epistaxis, headache(s), hearing loss, nasal congestion, nasal discharge, post nasal drip, sinus pressure, sore throat or other Cardiovascular: Denies chest pain or palpitations. Reports chronic dyspnea on exertion. Respiratory/Chest: Denies cough, excessive phlegm production. Denies wheezes. Gastrointestinal: Denies abdominal pain, coffee ground emesis, constipation, diarrhea, dyspepsia, hematemesis, hematochezia, loose stools, melena, nausea, vomiting or other Genitourinary: Denies burning urination, difficulty urinating, dysuria, hematuria, nocturia, urinary frequency, urinary hesitancy, urinary incontinence, urinary urgency or other Musculoskeletal: Reports left knee pain and swelling. Neurologic: Denies abnormal gait, abnormal speech, confusion, disequilibrium, dizziness, focal weakness, headache(s), numbness, paresthesias, seizure-like activity, seizures, syncope, tingling, tremor(s) or other Psychiatric: Denies anxiety, depression, homicidal ideation, suicidal ideation or other Endocrinology: Denies change in body appearance, cold intolerance, excessive sweating, heat intolerance, polydipsia, polyuria or other Hematologic/Lymphatic: Denies anemia, easy bleeding, easy bruising, lymphadenopathy or other Integumentary: Denies rashes Allergic/Immunologic: Denies rhinitis, hives, eczema, asthma or other Vital Signs Vital Signs Vital Signs: 04/04/21 16:00 Temperature 96.8 F L Temperature Source Temporal Pulse Rate 85 Respiratory Rate 16 Blood Pressure 167/107 H Blood Pressure Mean 127 Pulse Ox 97 Oxygen Delivery Method Room Air Weight Weight: 113.398 kg Body Mass Index (BMI) 44.2 Physical Exam Narrative Physical exam: General: Well-nourished, well-developed. Head: Normocephalic, atraumatic, no tenderness Eyes: PERRLA, EOMI ENT, no trauma, moist mucous membranes, no rhinorrhea Neck: Nontender, full range of motion, no spinal tenderness, deformities, step-off CVS: Regular rate and rhythm. S1-S2 present. No murmur, gallop or rub. Respiratory : clear to auscultation bilaterally, chest wall nontender, no wheezing Abdomen: Soft, nontender, nondistended, normal bowel sounds, no masses : Deferred Back: Nontender, no CVA tenderness, no midline spinal tenderness, deformities, step-offs Extremities: Left knee swelling and tenderness. Unable to raise left lower extremity secondary to pain. Plantar flexion of bilateral feet 5 out of 5. Skin: Ecchymosis of left knee. Normal color of skin otherwise. Neuro: Alert, oriented, cranial nerves II through XII grossly intact. Psychiatry: Normal mood. Normal affect. Not depressed. Not anxious. Results Lab / Micro Data Result Diagrams: 04/04/21 18:30 04/04/21 18:30 Labs: Laboratory Results - last 24 hr 04/04/21 18:30: WBC 10.7, RBC 4.93, Hgb 14.6, Hct 46.1, MCV 93.5, MCH 29.6, MCHC 31.7 L, RDW Std Deviation 44.5 H, RDW Coeff of Cristofer 13.0, Plt Count 195, MPV 9.8, Immature Gran % (Auto) 0.300, Neut % (Auto) 76.2 H, Lymph % (Auto) 13.9 L, [place] % (Auto) 8.7, Eos % (Auto) 0.5, Baso % (Auto) 0.4, Absolute Neuts (auto) 8.2 H, Absolute Lymphs (auto) 1.49, Nucleated RBC % 0 04/04/21 18:30: Sodium 143, Potassium 4.4, Chloride 112 H, Carbon Dioxide 26.0, Anion Gap 5, BUN 36 H, Creatinine 1.49 H, Estim Creat Clear Calc 35.54, Est GFR (MDRD) Af Amer 59 L, Est GFR (MDRD) Non-Af 49 L, BUN/Creatinine Ratio 24.2 H, Glucose 147 H, Calcium 8.3 L Radiology Impression Knee X-Ray 04/04/21 16:38 IMPRESSION: Degenerative arthrosis. There is a moderate volume joint effusion. There is non specific soft tissue swelling. Electronically Signed: Trent Cordova MD at 17:16 EST Reading Location ID and State: [facility] / [place] , Service support , Lower Extremity CT 04/04/21 17:44 IMPRESSION: There is a moderate volume dense joint effusion. This suggests hemarthrosis. There is intramuscular hematoma overlying the rectus femoris muscle. Electronically Signed: Trent Cordova MD at 18:27 EST Reading Location ID and State: [facility] / [place] , Service support , Assessment & Plan Assessment/Plan (1) Quadriceps contusion: QUALIFIERS: Encounter type: initial encounter Laterality: left Qualified Code(s): S70.12XA - Contusion of left thigh, initial encounter (2) Quadriceps tendon rupture: QUALIFIERS: Encounter type: initial encounter Laterality: left Qualified Code(s): S76.112A - Strain of left quadriceps muscle, fascia and tendon, initial encounter PLAN: Quadriceps contusion with suspected quadriceps tendon rupture Lower extremity CT visualized showed a quadriceps muscle hematoma; and moderate volume dense joint effusion. I agree with radiologist interpretation. Also x-ray of knee with moderate volume effusion. Per orthopedic surgeon recommendation will order MRI of left knee. Inpatient orthopedic consult. Will get preoperative EKG. We will stop aspirin for now. Morphine IV and oxycodone as needed ordered. Tylenol as needed ordered. Bowel protocol and antiemetics IV ordered. Keep n.p.o. ACS NSQIP surgical risk calculator with above surgical risk in terms of serious complication; any complication; pneumonia; cardiac complication; surgical site infection and many more. See attached printed paper in chart. Benefit of surgery may exceed risk. If intubated for surgery will recommend BiPAP/CPAP after extubation if hypoxic or in respiratory distress since patient is on home CPAP [facility]. We will get a preoperative EKG. Last echocardiogram was on 03/15/2020. Echocardiogram at that time showed ejection fraction of 65%. Unable to assess diastolic dysfunction at that time. Tylenol as needed for pain continued. Morphine and oxycodone as needed for pain. Bowel protocol antiemetics in place. Ice to left knee. No weightbearing on left lower extremity. CKD stage 3a Stable Trend BMP. CAD status post CABG and bovine aortic valve replacement Aspirin on hold secondary to hemarthrosis. Lisinopril and atorvastatin continued. Metoprolol continued. Hypertension Blood pressure is stable. Home blood pressure medication continued. Trend blood pressure and adjust blood pressure medications. Morbid Obesity: BMI: 44 kilogram per meter square. Complicates care. Lifestyle modification recommended. DVT prophylaxis: SCDs ordered. Charges/Coding Visit Charges Inpatient E&M: 07224 Init Hosp L3
[2021-04-04 19:27] VITALS: BP 93/39; PULSE 93; RESP 108; TEMP 36.7; O2SAT 94
--- NOTE | 2021-04-04 19:33 | MRI_ITS ---
STUDY: MRI LEFT KNEE REASON FOR EXAM: Male, 75 years old. Knee injury, knee pain. TECHNIQUE: Standardized fat and water weighted pulse sequences were obtained in all 3 orthogonal planes. COMPARISON: X-ray and CT to FINDINGS: Maceration of the posterior horn and body the medial meniscus with extrusion of the body. There is diffuse, full thickness articular cartilage loss of the medial femorotibial compartment. Normal medial femoral condyle and tibial plateau. Associated medial capsulitis. Normal medial collateral ligamentous complex (MCL). Normal distal semimembranosus, gracilis and semitendinosus tendons. Normal lateral meniscus. Normal hyaline cartilage of the lateral femorotibial compartment. Normal lateral femoral condyle and tibial plateau. Normal proximal tibiofibular articulation. Normal lateral collateral (fibular) ligament. Normal popliteus tendon. Normal biceps femoris tendon. Normal anterior cruciate ligament (ACL). Normal posterior cruciate ligament (PCL). Normal congruent patellofemoral articulation. Normal hyaline cartilage of the patellofemoral compartment. Normal medial and lateral patellar retinaculum. Acute rupture of the distal quadriceps tendon from the superior pole of the patella with a 3 cm defect with significant fraying of the distal tendon and this large amount of surrounding hemorrhage. Associated patella baja. Normal patellar tendon. Normal Hoffa''s fat pad. There is a moderate volume joint effusion. The soft tissues are unremarkable. The otherwise visualized osseous structures are unremarkable. MRI/Lower Ext Joint Only (Routine) IMPRESSION: 1. Acute full-thickness rupture of the distal quadriceps tendon from the superior pole of patella retracted 3 cm with significant fraying and large amount of surrounding hematoma. 2. Medial compartment failure with maceration of the posterior horn and body the medial meniscus with full-thickness chondral loss and medial capsulitis. Electronically Signed: Josué Girard MD at 11:24 EST ,
--- NOTE | 2021-04-04 20:03 | EKG12_ITS ---
Test Reason : AM EKG Blood Pressure : / mmHG Vent. Rate : 067 BPM Atrial Rate : 067 BPM P-R Int : 178 ms QRS Dur : 096 ms QT Int : 430 ms P-R-T Axes : -07 -15 118 degrees QTc Int : 454 ms Normal sinus rhythm Voltage criteria for left ventricular hypertrophy T wave abnormality, consider lateral ischemia Abnormal ECG When compared with ECG of 18-MAR-2020 05:28, Premature ventricular complexes are no longer Present Confirmed by LOS CALDERA, XIOMARA ([id number]), editorial clerk HUGO DREW ([id number]) on 04/08/2021 10:55:14 AM Referred By: DR RIVAS Confirmed By:XIOMARA MADISON MD
[2021-04-04 20:04] VITALS: BMI 44.0
[2021-04-04 20:12] VITALS: BP 128/80; PULSE 82; RESP 18; TEMP 36.9; O2SAT 95
[2021-04-04] MEDS: Acetaminophen 500 MG Tablet 1000 MG PO (21:34)
[2021-04-04] MEDS: Atorvastatin Calcium 40 MG Tablet PO (21:35)
[2021-04-04 21:36] VITALS: BP 128/80; PULSE 82
[2021-04-04] MEDS: Aspirin E.C. 81 MG Tablet PO (21:36)
[2021-04-04] MEDS: Metoprolol Tartrate 25 MG Tablet PO (21:36)
[2021-04-05] VITALS (7 sets, daily range): BP systolic 108–138; BP diastolic 56–88; PULSE 66–87; RESP 16–18; TEMP 36.6–37.1; O2SAT 94–100
[2021-04-05 05:46] LABS: Absolute Neutrophil Count 4.7 X10^3/uL (2.0-7.7); Basophil# 0.03 X10^3/uL; Basophil% 0.4 % (0-1); Eosinophils% 1.3 % (0-5); Hematocrit 45.5 % (40-54); Hemoglobin 14.7 g/dL (13.0-16.5); Lymphocyte % 23.7 % (19-41); Mean Corp Hgb Conc 32.3 g/dL (32-36); Mean Corpuscular Hgb 30.4 pg (27.0-32.0); Mean Platelet Vol. 9.9 fl (6.2-12.0); Monocyte# 0.94 X10^3/uL; Monocyte% 12.4 % (0-10); NRBC Flagged by Analyzer 0 % (0-5); Neutrophil # 4.69 X10^3/uL (2.7-7.7); Neutrophil % 61.8 % (47-70); Platelet Count 179 K/mm3 (150-450); RBC Distribution Width CV 13.1 % (11.6-14.6); Red Blood Count 4.84 M/mm3 (4.6-6.2); White Blood Count 7.6 K/mm3 (4.4-11.0)
[2021-04-05 06:07] LABS: Anion Gap 4 (5-15); BUN 30 mg/dL (7-18); Calcium,Total 8.3 mg/dL (8.5-10.1); Chloride 112 mmol/L (98-107); Creatinine, Serum 1.11 mg/dL (0.70-1.30); EST Glomerular Filtration Rate 69 mL/min (>60); Est Glom Filt Rate - Afr Amer 83 mL/min (>60); Glucose 105 mg/dL (74-106); Potassium 3.9 mmol/L (3.5-5.1); Sodium Level 141 mmol/L (136-145)
[2021-04-05] MEDS: Furosemide 20 MG Tablet PO (07:50)
[2021-04-05] MEDS: Metoprolol Tartrate 25 MG Tablet PO ×2 (07:50→21:03)
[2021-04-05] MEDS: Aspirin E.C. 81 MG Tablet PO ×2 (07:50→21:03)
[2021-04-05] MEDS: Lisinopril 20 MG Tablet PO (07:50)
[2021-04-05] MEDS: Acetaminophen 500 MG Tablet 1000 MG PO (07:52)
--- NOTE | 2021-04-05 09:08 | CASEMGMT ---
NOLVIA YBARRA Assessment: Face to Face with pt for initial transition planning/care coordination assessment. RN TATE introduced self and role at [facility], pt voices understanding and consents to assessment. Pt is A/O x4 and answers all questions appropriately at this time. Pt lying in bed in no distress ready to go down to Xray. Care providers, pharmacy, and demographics verified/updated. Admitting Dx: suspected quadricep tendon rupture PCP:Tran Specialists:bertha Quiñonez; [facility], cardio Preferred Pharmacy: [facility] Insurance: [employer] [facility] Prescription Benefit: yes LW/HPOA: Pt states he has a LW/DPOA and his DPOA is his , Penelope Hanks. He is aware this is not on file at [facility] and he may bring in to be scanned into the chart. LNOK: Penelope Hanks, Living Arrangements: Pt lives with in a double wide with a ramp to enter. Pt reports he is I in ADL's and denies concerns at home. Transportation: Pt drives self and denies concerns with transportation. DME/HHC/SNF: Pt has a CPAP at home and a cane and walker that he does not use. Pt has had HHC in the past but is unsure of which agency it was from. Pt denies SNF stays. Pt states no concerns with going home at time of dc. Pt states no further concerns/needs. CM to follow. Advised pt to ask CM if any further question/concerns/needs arise, voices understanding. Pt Goal: Home Plan: Home, follow for need for therapy.
--- NOTE | 2021-04-05 09:15 | RAD_ITS ---
STUDY: X-RAY - ORBITS REASON FOR EXAM: Male, 75 years old. H/O METAL IN EYES TECHNIQUE: 2 view(s) of the orbits were obtained. COMPARISON: None. FINDINGS: Normal bilateral orbits without a metallic orbital foreign body. Normal visualized facial bones. Normal paranasal sinuses. The soft tissue structures are unremarkable. RAD/Orbits for Foreign Body IMPRESSION: No demonstrated metallic orbital foreign body. The patient is cleared for an MRI examination. Electronically Signed: Josué Girard MD at 9:47 EST ,
--- NOTE | 2021-04-05 11:54 | PN.HOSP_ITS ---
Documented by User: Norberto FERRER 04/05/21 12:12 Subjective Subjective Patient is a 75-year-old male comfortably resting in bed, alert and orient x3. Patient still reports pain and bruising about the left knee, but denies development of any new symptoms overnight. Does not appear in acute distress. Objective Data Objective Data Vital Signs: Vital Signs Temp Pulse Resp BP Pulse Ox 97.9 F 67 16 116/73 95 04/05/21 11:21 04/05/21 11:21 04/05/21 11:21 04/05/21 11:21 04/05/21 11:21 Oxygen Delivery Method Room Air Weight: 248 lb 7.375 oz Body Mass Index (BMI) 44.0 Intake & Output: Intake and Output for Last 24 Hours 04/03/21 04/04/21 04/05/21 23:59 23:59 23:59 Intake Total 300 / 300 Balance 300 / 300 Lab / Micro Data Result Diagrams: 04/05/21 05:15 04/05/21 05:15 Labs: Laboratory Results - last 24 hr 04/04/21 18:30: WBC 10.7, RBC 4.93, Hgb 14.6, Hct 46.1, MCV 93.5, MCH 29.6, MCHC 31.7 L, RDW Std Deviation 44.5 H, RDW Coeff of Cristofer 13.0, Plt Count 195, MPV 9.8, Immature Gran % (Auto) 0.300, Neut % (Auto) 76.2 H, Lymph % (Auto) 13.9 L, Parker % (Auto) 8.7, Eos % (Auto) 0.5, Baso % (Auto) 0.4, Absolute Neuts (auto) 8.2 H, Absolute Lymphs (auto) 1.49, Nucleated RBC % 0 04/04/21 18:30: Sodium 143, Potassium 4.4, Chloride 112 H, Carbon Dioxide 26.0, Anion Gap 5, BUN 36 H, Creatinine 1.49 H, Estim Creat Clear Calc 35.54, Est GFR (MDRD) Af Amer 59 L, Est GFR (MDRD) Non-Af 49 L, BUN/Creatinine Ratio 24.2 H, Glucose 147 H, Calcium 8.3 L 04/05/21 05:15: WBC 7.6, RBC 4.84, Hgb 14.7, Hct 45.5, MCV 94.0, MCH 30.4, MCHC 32.3, RDW Std Deviation 45.0 H, RDW Coeff of Cristofer 13.1, Plt Count 179, MPV 9.9, Immature Gran % (Auto) 0.400, Neut % (Auto) 61.8, Lymph % (Auto) 23.7, Parker % (Auto) 12.4 H, Eos % (Auto) 1.3, Baso % (Auto) 0.4, Absolute Neuts (auto) 4.7, Absolute Lymphs (auto) 1.80, Nucleated RBC % 0 04/05/21 05:15: Sodium 141, Potassium 3.9, Chloride 112 H, Carbon Dioxide 25.0, Anion Gap 4 L, BUN 30 H, Creatinine 1.11, Estim Creat Clear Calc 47.70, Est GFR (MDRD) Af Amer 83, Est GFR (MDRD) Non-Af 69, BUN/Creatinine Ratio 27.0 H, Glucose 105, Calcium 8.3 L Radiography Diagnostic Testing: Radiology Impression Knee X-Ray 04/04/21 16:38 IMPRESSION: Degenerative arthrosis. There is a moderate volume joint effusion. There is non specific soft tissue swelling. Electronically Signed: Trent Cordova MD at 17:16 EST , Lower Extremity CT 04/04/21 17:44 IMPRESSION: There is a moderate volume dense joint effusion. This suggests hemarthrosis. There is intramuscular hematoma overlying the rectus femoris muscle. Electronically Signed: Trent Cordova MD at 18:27 EST , Lower Extremity MRI 04/04/21 19:33 IMPRESSION: 1. Acute full-thickness rupture of the distal quadriceps tendon from the superior pole of patella retracted 3 cm with significant fraying and large amount of surrounding hematoma. 2. Medial compartment failure with maceration of the posterior horn and body the medial meniscus with full-thickness chondral loss and medial capsulitis. Electronically Signed: Josué Girard MD at 11:24 EST Reading Location ID and State: [id number] / [employer] Tel , Service support , Orbit X-Ray 04/05/21 09:15 IMPRESSION: No demonstrated metallic orbital foreign body. The patient is cleared for an MRI examination. Electronically Signed: Josué Girard MD at 9:47 EST Reading Location ID and State: [id number] / [employer] Tel , Service support , Physical Exam Const alert, oriented x3 and no apparent distress HEENT head/scalp atraumatic and moist oral mucous membranes Head and Scalp: normocephalic Eyes PERRL, EOMs intact bilaterally and conjunctivae normal Neck no lymphadenopathy, supple and no JVD Resp normal respiratory effort, no retractions and no use of accessory muscles Cardio regular rate, regular rhythm, no murmurs and no JVD GI normal to inspection, nondistended, normoactive bowel sounds, soft to palpation and non-tender Extremity normal to inspection, full ROM and no clubbing, cyanosis or edema Skin no rashes or lesions noted, no wounds and skin turgor normal Neuro CN's II-XII intact bilaterally Psych affect normal Assessment & Plan Assessment/Plan (1) Quadriceps tendon rupture: QUALIFIERS: Encounter type: initial encounter Laterality: left Qualified Code(s): S76.112A - Strain of left quadriceps muscle, fascia and tendon, initial encounter (2) Quadriceps contusion: QUALIFIERS: Encounter type: initial encounter Laterality: left Qualified Code(s): S70.12XA - Contusion of left thigh, initial encounter PLAN: Day 1 Discharge planning: To be determined, PT/OT eval ordered for after surgery. 1)Falls w/ distal quadraceps tendon tear MRI of the left lower extremity demonstrated acute full-thickness rupture of the distal quadriceps tendon, surrounding hematoma and medial compartment failure with maceration of the posterior horn and body with full-thickness chondral loss and medial capsulitis. Dr. Doherty consulted, patient to undergo surgical intervention on 04/06/2021, management per orthopedics, as needed pain medications ordered. 2) CAD Status post CABG and bovine aortic valve replacement. Continue lisinopril, atorvastatin and metoprolol. Hold on aspirin anticipation for surgery. 3) HTN Stable, continue metoprolol and lisinopril. DVT prophylaxis - SCD's, chemoprophylaxis not indicated due to upcoming surgery. Patient seen by Norberto Moreno PA-C, under the supervision of Dr. Lopez. Time s pent on patient care: 9 minutes. Documented by User: Dr. Blake Lopez, 04/05/21 13:45 Subjective Subjective Notes pain in his left knee. States that he was getting off his tractor and then despite holding onto the bars he had fallen landing on his knee. He denies any head injury nor loss of consciousness. He is unable to extend or flex his left knee due to pain. Objective Data Lab / Micro Data Result Diagrams: 04/05/21 05:15 04/05/21 05:15 Physical Exam Const alert and oriented x3 Extremity Extremity Narrative: Ecchymosis noted in the medial left knee with left knee effusion. Patient does have a mass on his left lateral leg. Skin no rashes or lesions noted Assessment & Plan Assessment/Plan (1) Quadriceps tendon rupture: QUALIFIERS: Encounter type: initial encounter Laterality: left Qualified Code(s): S76.112A - Strain of left quadriceps muscle, fascia and tendon, initial encounter (2) Hemarthrosis: PLAN: Patient seen and examined independently. Data and vitals reviewed. I agree with the above note by the physician supply chain assistant. 1. Left distal quadricep tendon rupture Status post fall from his tractor. Seen by Dr. Doherty and plan is for surgery on the 6. A NQSIP calculator performed and patient is overall lower than average risk for everything except for surgical site infection which she is barely higher risk. Patient is medically stable to proceed with surgery he is medically optimized. No further risk stratification necessary at this time. Pain control Nonweightbearing at this time 2. Left knee hemarthrosis Status post fall Further management per orthopedics 3. VTE prophylaxis with SCDs. Greater than 20 minutes reviewing data, discussed with patient, calculating NQSIP Charges/Coding Visit Charges Inpatient E&M: 58481 Subs Hosp L2
--- NOTE | 2021-04-05 12:12 | CON.PCM.OR_ITS ---
HPI Consult Data Date of Consult: 04/05/21 HPI Narrative HPI Narrative: HOMER MIRIAN, is a 75 M who presented to [facility] emergency department 04/04/2021 after he felt a pop in his left knee while he was shoveling snow on his tractor. He continued to work throughout the day. He noted increased swelling and pain specially after completing his daily tasks. X-rays in the emergency department were unremarkable. CT scan was inconclusive. He was admitted under the service of the hospitalist due to inability ambulate even with a knee immobilizer on. Patient lives at home with his . He denied any antecedent left knee pain or prior surgery on the knee. Patient is status post CABG and aortic valve replacement in 2014 he states he been doing well since then. He takes a baby aspirin twice daily. He ambulates without a cane or walker typically. Denies any other injuries. Denies fevers, chills, nausea or vomiting, chest pain or shortness of breath. [facility] Medical History Aortic stenosis Arthritis Atherosclerosis of coronary artery of [place] heart without angina pectoris Benign prostatic hyperplasia with lower urinary tract symptoms Cancer Cardiology follow-up encounter COPD (chronic obstructive pulmonary disease) CPAP (continuous positive airway pressure) dependence Essential hypertension History of echocardiogram History of edema History of left heart catheterization (LHC) (~03/18/20) History of pulmonary function tests Hyperlipidemia Non-smoker KAMRAN (obstructive sleep apnea) Severe aortic insufficiency Shortness of breath on exertion Home Medications aspirin 81 mg tablet,delayed release 81 mg PO BID tab 09/07/18 [History Last Taken 04/04/21] acetaminophen 500 mg tablet 1,000 mg PO Q8 PRN tab 07/25/19 [History Last Taken 04/04/21 13:00] atorvastatin 40 mg tablet 40 mg PO QHS #90 tab 05/20/20 [Rx Last Taken 04/03/21] lisinopril 40 mg PO DAILY 04/04/21 [History Last Taken 04/04/21] metoprolol tartrate 25 mg PO BID 04/04/21 [History Last Taken 04/04/21] tamsulosin 0.4 mg PO QHS 04/04/21 [History Last Taken 04/03/21] Allergy/AdvReac Type Severity Reaction Status Date / Time No Known Allergies Allergy Verified 04/04/21 16:01 Family History Father Heart disease Brother Heart disease Brother Colon cancer Surgical History History of aortic valve replacement (06/14/14) History of carpal tunnel release History of colonoscopy History of coronary artery bypass graft (06/14/14) History of heart surgery History of open reduction and internal fixation (ORIF) procedure History of partial colectomy (~05/2018) History of right hip replacement (09/28/18) Social History Smoking Status: Never smoker alcohol intake: never substance use type: does not use caffeine: No ROS ROS Narrative 12 point review systems obtained, negative unless otherwise noted in HPI. Vital Signs Vital Signs Vital Signs: 04/04/21 16:00 04/04/21 19:27 04/04/21 20:12 Temperature 96.8 F L 98.0 F 98.5 F Temperature Source Temporal Temporal Oral Pulse Rate 85 93 82 Pulse Strength Respiratory Rate 16 108 H 18 Respiratory Effort Respiratory Depth Respiratory Pattern Blood Pressure 167/107 H 93/39 L 128/80 H Blood Pressure Mean 127 57 96 Blood Pressure Source Monitor Blood Pressure Position Semi-Fowlers Blood Pressure Location Right Arm Pulse Ox 97 94 95 Oxygen Delivery Method Room Air Room Air Room Air 04/04/21 21:34 04/04/21 21:36 04/05/21 02:36 Temperature 97.8 F Temperature Source Temporal Pulse Rate 82 70 Pulse Strength Respiratory Rate 18 Respiratory Effort Respiratory Depth Respiratory Pattern Blood Pressure 128/80 H 108/56 L Blood Pressure Mean 73 Blood Pressure Source Monitor Blood Pressure Position Blood Pressure Location Pulse Ox 95 Oxygen Delivery Method Room Air Room Air 04/05/21 07:20 04/05/21 07:50 04/05/21 07:55 Temperature 97.8 F Temperature Source Oral Pulse Rate 66 66 Pulse Strength Normal (2+) Respiratory Rate 16 Respiratory Effort Normal Respiratory Depth Normal Respiratory Pattern Normal Blood Pressure 111/70 Blood Pressure Mean 83 Blood Pressure Source Monitor Blood Pressure Position Semi-Fowlers Blood Pressure Location Right Arm Pulse Ox 96 Oxygen Delivery Method Room Air Room Air 04/05/21 11:21 Temperature 97.9 F Temperature Source Oral Pulse Rate 67 Pulse Strength Respiratory Rate 16 Respiratory Effort Respiratory Depth Respiratory Pattern Blood Pressure 116/73 Blood Pressure Mean 87 Blood Pressure Source Monitor Blood Pressure Position Sitting Blood Pressure Location Left Arm Pulse Ox 95 Oxygen Delivery Method Room Air Weight Weight: 248 lb 7.375 oz Body Mass Index (BMI) 44.0 Physical Exam Narrative General -A&Ox3, NAD, appears stated age. Vital signs stable, afebrile. Respiratory -normal work of breathing, no intercostal retractions. CV -pulses regular, brisk capillary refill ?4 limbs. Abdomen-soft, nontender, nondistended. No guarding, rigidity, rebound tenderness. Musculoskeletal/neurologic -full range of motion nontender throughout bilateral upper extremities, right lower extremity with full sensation and strength in all dermatomes and myotomes. No midline cervical tenderness. Left lower extremity-significant ecchymosis and swelling about the left knee with a large effusion. There is tenderness about the superior pole of the patella. He is unable to perform a straight leg raise off the bed. There is a palpable step-off in the quadriceps tendon. Brisk capillary refill. Sensation intact light touch L3-S1 dermatomes. DF, PF, EHL intact. DP, PT 2+. Pelvis is stable, nontender. Skin is intact without lacerations, abrasions. Lab / Micro Data Result Diagrams: 04/05/21 05:15 04/05/21 05:15 Labs: Laboratory Results - last 24 hr 04/04/21 18:30: WBC 10.7, RBC 4.93, Hgb 14.6, Hct 46.1, MCV 93.5, MCH 29.6, MCHC 31.7 L, RDW Std Deviation 44.5 H, RDW Coeff of Cristofer 13.0, Plt Count 195, MPV 9.8, Immature Gran % (Auto) 0.300, Neut % (Auto) 76.2 H, Lymph % (Auto) 13.9 L, Izard % (Auto) 8.7, Eos % (Auto) 0.5, Baso % (Auto) 0.4, Absolute Neuts (auto) 8.2 H, Absolute Lymphs (auto) 1.49, Nucleated RBC % 0 04/04/21 18:30: Sodium 143, Potassium 4.4, Chloride 112 H, Carbon Dioxide 26.0, Anion Gap 5, BUN 36 H, Creatinine 1.49 H, Estim Creat Clear Calc 35.54, Est GFR (MDRD) Af Amer 59 L, Est GFR (MDRD) Non-Af 49 L, BUN/Creatinine Ratio 24.2 H, Glucose 147 H, Calcium 8.3 L 04/05/21 05:15: WBC 7.6, RBC 4.84, Hgb 14.7, Hct 45.5, MCV 94.0, MCH 30.4, MCHC 32.3, RDW Std Deviation 45.0 H, RDW Coeff of Cristofer 13.1, Plt Count 179, MPV 9.9, Immature Gran % (Auto) 0.400, Neut % (Auto) 61.8, Lymph % (Auto) 23.7, Izard % (Auto) 12.4 H, Eos % (Auto) 1.3, Baso % (Auto) 0.4, Absolute Neuts (auto) 4.7, Absolute Lymphs (auto) 1.80, Nucleated RBC % 0 04/05/21 05:15: Sodium 141, Potassium 3.9, Chloride 112 H, Carbon Dioxide 25.0, Anion Gap 4 L, BUN 30 H, Creatinine 1.11, Estim Creat Clear Calc 47.70, Est GFR (MDRD) Af Amer 83, Est GFR (MDRD) Non-Af 69, BUN/Creatinine Ratio 27.0 H, Glucose 105, Calcium 8.3 L Radiology Impression Knee X-Ray 04/04/21 16:38 IMPRESSION: Degenerative arthrosis. There is a moderate volume joint effusion. There is non specific soft tissue swelling. Electronically Signed: Trent Cordova MD at 17:16 EST , Lower Extremity CT 04/04/21 17:44 IMPRESSION: There is a moderate volume dense joint effusion. This suggests hemarthrosis. There is intramuscular hematoma overlying the rectus femoris muscle. Electronically Signed: Trent Cordova MD at 18:27 EST , Lower Extremity MRI 04/04/21 19:33 IMPRESSION: 1. Acute full-thickness rupture of the distal quadriceps tendon from the superior pole of patella retracted 3 cm with significant fraying and large amount of surrounding hematoma. 2. Medial compartment failure with maceration of the posterior horn and body the medial meniscus with full-thickness chondral loss and medial capsulitis. Electronically Signed: Josué Girard MD at 11:24 EST Reading Location ID and State: [employer] / [employer] Tel , Service support , Orbit X-Ray 04/05/21 09:15 IMPRESSION: No demonstrated metallic orbital foreign body. The patient is cleared for an MRI examination. Electronically Signed: Josué Girard MD at 9:47 EST Reading Location ID and State: [id number] / [employer] Tel , Service support , Assessment & Plan Assessment/Plan (1) Quadriceps tendon rupture: QUALIFIERS: Encounter type: initial encounter Laterality: left Qualified Code(s): S76.112A - Strain of left quadriceps muscle, fascia and tendon, initial encounter PLAN: Recommend surgical intervention for repair of left knee quadriceps tendon rupture I reviewed the risks, benefits, terms the procedure with the patient at length. He agreed to proceed with surgery. Risks include but were not limited to bleeding, infection, loss of life or limb, need for additional surgery, failure of repair, stiffness, weakness, persistent disability, need for assistive devices long-term, extensor lag, neurovascular injury, DVT or PE. Informed consent obtained. Plan for surgery tomorrow morning. N.p.o. after midnight. IV fluids. Ancef 2 g on-call to the OR. Hold anticoagulation. Thank you for this consultation.
--- NOTE | 2021-04-05 13:20 | RAD_ITS ---
STUDY: X-RAY CHEST REASON FOR EXAM: Male, 75 years old. pre op TECHNIQUE: Single AP portable view of the chest. COMPARISON: 03/15/2020 FINDINGS: Status post median sternotomy. The lungs are clear and expanded. There is no demonstrated pleural abnormality. There is moderate cardiac enlargement. Normal mediastinum and charlie. Normal visualized pulmonary arteries. There is atherosclerotic tortuosity of the aortic arch and descending thoracic aorta. Normal visualized thoracic spine. Normal visualized ribs, clavicles, and shoulders. There is no demonstrated abnormality of the visualized soft tissue structures of the upper abdomen. RAD/Chest 1 View (Portable) IMPRESSION: No active disease. Electronically Signed: Josué Girard MD at 13:39 EST ,
--- NOTE | 2021-04-05 20:20 | CPS ---
Set Up Pt's home CPAP unit for sleep.
[2021-04-05] MEDS: oxyCODONE 5 MG Tablet PO (20:51)
[2021-04-05] MEDS: Atorvastatin Calcium 40 MG Tablet PO (21:03)
[2021-04-06] VITALS (13 sets, daily range): BP systolic 99–124; BP diastolic 58–88; PULSE 63–95; RESP 16–18; TEMP 36.3–37.1; O2SAT 93–99; BMI 44.1
[2021-04-06] MEDS: Acetaminophen 500 MG Tablet 1000 MG PO ×2 (01:06→10:17)
[2021-04-06 06:44] LABS: Absolute Lymphocyte Count 1.84 X10^3/uL (0.83-4.51); Absolute Neutrophil Count 5.1 X10^3/uL (2.0-7.7); Basophil# 0.03 X10^3/uL; Basophil% 0.4 % (0-1); Eosinophil# 0.19 X10^3/uL; Eosinophils% 2.3 % (0-5); Hematocrit 44.4 % (40-54); Hemoglobin 14.2 g/dL (13.0-16.5); Lymphocyte # 1.84 X10^3/ul (0.83-4.51); Lymphocyte % 22.5 % (19-41); Mean Corpuscular Volume 93.9 fL (80-94); Mean Platelet Vol. 9.8 fl (6.2-12.0); Monocyte# 0.96 X10^3/uL; Monocyte% 11.8 % (0-10); NRBC Flagged by Analyzer 0 % (0-5); Neutrophil # 5.12 X10^3/uL (2.7-7.7); Neutrophil % 62.6 % (47-70); Platelet Count 184 K/mm3 (150-450); RBC Distribution Width CV 13.2 % (11.6-14.6); RBC Distribution Width SD 45.6 fl (35.1-43.9); Red Blood Count 4.73 M/mm3 (4.6-6.2); White Blood Count 8.2 K/mm3 (4.4-11.0)
[2021-04-06 07:07] LABS: Anion Gap 5 (5-15); BUN 26 mg/dL (7-18); BUN/Creat Ratio 21.8 RATIO (10-20); Calcium,Total 8.4 mg/dL (8.5-10.1); Chloride 110 mmol/L (98-107); Creatinine, Serum 1.19 mg/dL (0.70-1.30); EST Glomerular Filtration Rate 64 mL/min (>60); Est Glom Filt Rate - Afr Amer 77 mL/min (>60); Estimated Creatinine Clearance 44.49 ml/min; Glucose 104 mg/dL (74-106); Potassium 4.1 mmol/L (3.5-5.1); Sodium Level 142 mmol/L (136-145)
[2021-04-06] MEDS: Lactated Ringers 1,000 ML 100 ML IV ×3 (07:30→22:18)
[2021-04-06] MEDS: Cefazolin 2 GM in 0.9% Normal Saline 100 ML IV (07:50)
[2021-04-06] MEDS: Bupivacaine 0.5% PF 10 ML VIAL OPERA.SITE (09:18)
[2021-04-06] MEDS: Bupivacaine Mpf 0.5% 30 ML VIAL (09:18)
--- NOTE | 2021-04-06 09:46 | OP.PCM_ITS ---
Problems Associated Problem List Diagnoses (1) Quadriceps tendon rupture: Report of Operation Date of Procedure: 04/06/21 Description of Surgical Findings:: Preoperative diagnosis: Left knee quadriceps tendon rupture Postoperative diagnosis: Left knee quadriceps tendon rupture Procedure: Left knee quadriceps tendon repair Surgeon: Valentin Doherty DO Finishing Machine Operator Automatic: OMARI Lewis Anesthesia: General endotracheal Anesthesiologist: Dr. Handy Complications: None Drains: None Estimated blood loss: 50 cc Urinary output: None recorded IV fluids: Per anesthesia record Specimens: None Surgical implants: Arthrex corkscrew FT 5.5 mm x 15 mm suture anchors (x2) with double loaded fiber tapes Surgical indications: This is a 75-year-old male who was working on his tractor on 04/04/2021. He reached over to pick something up felt a pop in his left knee. He noted worsening pain and swelling but did finish his daily tasks. He was brought to [facility] emergency department on 04/04/2021. X-rays were relatively unremarkable. A CT scan was performed due to the patient's inability to bear weight and perform straight leg raise. Hematoma was noted but was inconclusive for extensor mechanism injury. He is subsequently admitted for inability to ambulate even with a knee immobilizer. An MRI was obtained yesterday 04/05/2021 which demonstrated complete quadriceps tendon rupture with retraction. I recommended open repair of the left quadriceps tendon rupture after seeing the patient in consultation. The risks, benefits, alternatives to procedure were reviewed with the patient at length. He agreed to proceed with surgery. Risks included but were not limited to bleeding, infection, loss of life or limb, risk of anesthesia, need for additional surgery, persistent pain, nonhealing tendon, arthrofibrosis, extensor lag, neurovascular injury, DVT or PE. Informed sent was obtained prior to procedure. Description of procedure: Patient was identified in the preoperative holding area by name, medical record number, and date of . The operative extremity was marked. Informed consent was confirmed with the patient. All questions were answered to his satisfaction. At time of his procedure, patient was brought to the operative suite and positioned supine a standard operating table. All bony prominences were well- padded. General anesthesia was induced with a laryngeal mask airway placed. After adequate anesthesia and securing the tube, a well-padded pneumatic tourniquet was applied to left upper thigh. We then prepped and draped the left lower extremity in a normal, sterile orthopedic fashion after placing a bump under the patient's left hip and elevating the left lower extremity slightly on bath blankets. 2 g Ancef was administered prior to the incision by anesthesia staff. We then performed a timeout with all parties in attendance in agreement with the side, site, and operation be performed. No concerns were voiced and we elected to proceed. I first exsanguinated the left lower extremity and Esmarch bandage. Tourniquet was inflated 280 mmHg remained up for approximately 65 minutes. Esmarch was removed. I was able to palpate a defect in the quadriceps tendon. Incision was carried sharply through skin and subcutaneous tissue approximately 10 cm in length overlying the superior third of the patella and the quadriceps tendon. Bursa and fascia was split in line with the incision. I then encountered the retinacular and quadriceps tendon injury. There is significant mop ends of the quadriceps tendon remaining both on the patella as well as the end of the remaining quadriceps tendon. These were debrided sharply. I then thoroughly irrigated the knee with normal saline solution. There was significant hematoma along the distal quadriceps musculature. This was also debrided. I then exposed the superior pole the patella. I freshened the bony surface with a rasp. I then used a cannulated drill to drill and appropriate tap for two 5.5 mm corkscrew anchors loaded with 2 fiber tapes respectively. These had excellent purchase. I then performed a locking Krak?w suture with one limb from each anchor exiting out the end of the tendon. I had my events administrative assistant hold tension on the medial sided Krackow suture reapproximated the tendon to bone. I then tied the lateral side with excellent reapproximation of the tendon to bone. I then tied the medial side with excellent reapproximation to bone. I then took the other fiber tape from each anchor and performed a Krak?w suture to neutralize the first repair suture. These were tensioned and tied down to the anchor surface. I then noted 2 separate transverse retinacular injuries both medial and lateral to the quadriceps tendon. These were reapproximated with [id number] #1 Vicryl suture. I brought the knee into approximately 30 degrees of flexion and significant tension was noted on the repair. I then brought the knee back into full extension. Tourniquet was deflated. Hemostasis was excellent. I thoroughly irrigated the wound with normal saline solution. Dermis and subcutaneous tissue was reapproximated 2-0 Vicryl buried suture. Skin was finally reapproximated with nessa. A silver dressing was applied. A bulky modified Cardoso dressing was then also applied. Patient was then reversed from anesthesia and safely extubated in the operative suite. He was transferred to his hospital bed and subsequently to PACU in stable condition. Post Operative Plan: Weightbearing: Weightbearing as tolerated left lower extremity -hinged knee brace locked in extension at all times. To be removed only for hygiene purposes, at which time the knee should not be flexed. Antibiotics: Ancef 1 g x 3 doses postoperatively, 1 dose given preoperatively DVT Prophylaxis: SCDs, 81 mg aspirin twice daily Dunlap: None Dressing: Maintain surgical silver dressing x7 days, then okay to remove X-Rays: None Follow-up: 3 weeks in my office
[2021-04-06] MEDS: Metoprolol Tartrate 25 MG Tablet PO ×2 (10:14→22:18)
[2021-04-06] MEDS: Lisinopril 20 MG Tablet PO (10:14)
[2021-04-06] MEDS: Furosemide 20 MG Tablet PO (10:14)
--- NOTE | 2021-04-06 11:19 | PN.HOSP_ITS ---
Documented by User: Norberto FERRER 04/06/21 11:29 Subjective Subjective Patient is a 75-year-old male comfortably resting in bed, alert and orient x3. Patient reports feeling a little groggy and sore after surgery, but is otherwise without any new complaints. Does not appear in acute distress. Objective Data Objective Data Vital Signs: Vital Signs Temp Pulse Resp BP Pulse Ox 97.9 F 91 16 118/80 96 04/06/21 10:19 04/06/21 10:19 04/06/21 10:19 04/06/21 10:19 04/06/21 10:19 Oxygen Flow Rate (L/min) 2 Oxygen Delivery Method Nasal Cannula Weight: 249 lb Body Mass Index (BMI) 44.1 Intake & Output: Intake and Output for Last 24 Hours 04/04/21 04/05/21 04/06/21 23:59 23:59 23:59 Intake Total 650 / 650 110 / 110 Output Total 450 / 450 Balance 200 / 200 110 / 110 Lab / Micro Data Result Diagrams: 04/06/21 06:18 04/06/21 06:18 Labs: Laboratory Results - last 24 hr 04/05/21 12:50: Blood Type O POSITIVE, Antibody Screen NEGATIVE 04/06/21 06:18: WBC 8.2, RBC 4.73, Hgb 14.2, Hct 44.4, MCV 93.9, MCH 30.0, MCHC 32.0, RDW Std Deviation 45.6 H, RDW Coeff of Cristofer 13.2, Plt Count 184, MPV 9.8, Immature Gran % (Auto) 0.400, Neut % (Auto) 62.6, Lymph % (Auto) 22.5, [place] % (Auto) 11.8 H, Eos % (Auto) 2.3, Baso % (Auto) 0.4, Absolute Neuts (auto) 5.1, Absolute Lymphs (auto) 1.84, Nucleated RBC % 0 04/06/21 06:18: Sodium 142, Potassium 4.1, Chloride 110 H, Carbon Dioxide 27.0, Anion Gap 5, BUN 26 H, Creatinine 1.19, Estim Creat Clear Calc 44.49, Est GFR (MDRD) Af Amer 77, Est GFR (MDRD) Non-Af 64, BUN/Creatinine Ratio 21.8 H, Glucose 104, Calcium 8.4 L Micro: Microbiology 04/05/21 12:46 Nasal Secretion SARS-CoV-2 Antigen (Rapid) - Final Radiography Diagnostic Testing: Radiology Impression Lower Extremity MRI 04/04/21 19:33 IMPRESSION: 1. Acute full-thickness rupture of the distal quadriceps tendon from the superior pole of patella retracted 3 cm with significant fraying and large amount of surrounding hematoma. 2. Medial compartment failure with maceration of the posterior horn and body the medial meniscus with full-thickness chondral loss and medial capsulitis. Electronically Signed: Josué Girard MD at 11:24 EST Reading Location ID and State: [id number] , Service support , Chest X-Ray 04/05/21 13:20 IMPRESSION: No active disease. Electronically Signed: Josué Girard MD at 13:39 EST Reading Location ID and State: [employer] / [employer] , Service support , Physical Exam Const alert, oriented x3 and no apparent distress HEENT head/scalp atraumatic and moist oral mucous membranes Head and Scalp: normocephalic Eyes PERRL, EOMs intact bilaterally and conjunctivae normal Neck no lymphadenopathy, supple and no JVD Resp normal respiratory effort, no retractions and no use of accessory muscles Cardio regular rate, regular rhythm and no JVD GI normal to inspection, nondistended, normoactive bowel sounds, soft to palpation and non-tender Extremity Extremity Narrative: Left lower extremity is appropriately braced and bandaged after surgery. Skin no rashes or lesions noted, no wounds and skin turgor normal Neuro CN's II-XII intact bilaterally Psych affect normal Assessment & Plan Assessment/Plan (1) Hemarthrosis: (2) Quadriceps tendon rupture: QUALIFIERS: Encounter type: initial encounter Laterality: left Qualified Code(s): S76.112A - Strain of left quadriceps muscle, fascia and tendon, initial encounter (3) Quadriceps contusion: QUALIFIERS: Encounter type: initial encounter Laterality: left Qualified Code(s): S70.12XA - Contusion of left thigh, initial encounter PLAN: Day 2 Discharge planning: To be determined, PT/OT eval ordered for after surgery. 1)Falls w/ distal quadraceps tendon tear POD 0 s/p left knee quadraceps tendor repair. Management per orthopedics; weight bearing as tolerated on the LLE, Ancef 1g x 3 doses, SCD's + ASA 81mg BID, Maintain surgical silver dressing x7 days, F/U in 3 weeks w/ Dr. Doherty. Continue as needed medications. 2) CAD Status post CABG and bovine aortic valve replacement. Continue lisinopril, atorvastatin and metoprolol. Aspirin increased as above. 3) HTN Stable, continue metoprolol and lisinopril. DVT prophylaxis - SCD's Patient seen by Norberto Moreno PA-C, under the supervision of Dr. Lopez. Time spent on patient care: 7 minutes. Documented by User: Dr. Blake Lopez, 04/06/21 12:13 Subjective Subjective Has some discomfort in his distal left lower extremity. Otherwise feels okay postoperatively. Objective Data Lab / Micro Data Result Diagrams: 04/06/21 06:18 04/06/21 06:18 Physical Exam Const alert and no apparent distress Resp normal respiratory effort, no retractions, no use of accessory muscles and clear to auscultation bilaterally Cardio regular rate, regular rhythm, S1 normal heart sound and S2 normal heart sound GI normal to inspection, nondistended, normoactive bowel sounds, soft to palpation, non-tender and non-distended Extremity Extremity Narrative: Left leg in a brace Assessment & Plan Assessment/Plan (1) Quadriceps tendon rupture: QUALIFIERS: Encounter type: initial encounter Laterality: left Qualified Code(s): S76.112A - Strain of left quadriceps muscle, fascia and tendon, initial encounter PLAN: Patient seen and examined independently. Data and vitals reviewed. I agree with the above note by the physician sugar laboratory assistant. 1. Left distal quadricep tendon rupture Status post fall from his tractor. S/P repair on the 6th PT OT evaluate and treat. Determine if patient requires additional therapy. Per orthopaedic recommendations: * Weightbearing: Weightbearing as tolerated left lower extremity -hinged knee brace locked in extension at all times. To be removed only for hygiene purposes, at which time the knee should not be flexed. * Antibiotics: Ancef 1 g x 3 doses postoperatively, 1 dose given preoperatively * DVT Prophylaxis: SCDs, 81 mg aspirin twice daily * [place]: None * Dressing: Maintain surgical silver dressing x7 days, then okay to remove * X-Rays: None * Follow-up: 3 weeks 2. Left knee hemarthrosis Status post fall Further management per orthopedics 3. VTE prophylaxis with SCDs. ASA BID Charges/Coding Visit Charges Inpatient E&M: 10378 Subs Hosp L2
[2021-04-06] MEDS: traMADol 50 MG Tablet PO ×3 (11:30→23:31)
[2021-04-06] MEDS: Cefazolin 1 GM/50 ML BAG IV ×2 (16:44→23:31)
[2021-04-06] MEDS: Aspirin E.C. 81 MG Tablet PO (16:47)
[2021-04-06] MEDS: Atorvastatin Calcium 40 MG Tablet PO (22:18)
[2021-04-07 02:17] VITALS: BP 106/82; PULSE 75; RESP 16; TEMP 36.6; O2SAT 98
[2021-04-07 06:35] LABS: Hematocrit 41.2 % (40-54); Hemoglobin 13.2 g/dL (13.0-16.5); Mean Corpuscular Hgb 30.5 pg (27.0-32.0); Mean Corpuscular Volume 95.2 fL (80-94); Mean Platelet Vol. 10.9 fl (6.2-12.0); Platelet Count 182 K/mm3 (150-450); RBC Distribution Width CV 12.9 % (11.6-14.6); RBC Distribution Width SD 45.1 fl (35.1-43.9); Red Blood Count 4.33 M/mm3 (4.6-6.2); White Blood Count 13.2 K/mm3 (4.4-11.0)
[2021-04-07] MEDS: traMADol 50 MG Tablet PO ×2 (06:36→12:16)
[2021-04-07 07:40] VITALS: BP 101/72; PULSE 64; RESP 16; TEMP 36.5; O2SAT 94
--- NOTE | 2021-04-07 07:46 | PCM.PN.ORT ---
Subjective Subjective Patient seen and examined. Denies any new complaints. States his pain is well controlled on current pain regimen. He states he been up with nursing staff using a walker. Denies any numbness or tingling. Denies fevers, chills, chest pain or shortness of breath, nausea or vomiting. Objective Data Objective Data Vital Signs: Vital Signs Temp Pulse Resp BP Pulse Ox 97.9 F 75 16 106/82 H 98 04/07/21 02:17 04/07/21 02:17 04/07/21 02:17 04/07/21 02:17 04/07/21 02:17 Oxygen Flow Rate (L/min) 2 Oxygen Delivery Method CPAP Weight: 249 lb Body Mass Index (BMI) 44.1 Intake & Output: Intake and Output for Last 24 Hours 04/05/21 04/06/21 04/07/21 23:59 23:59 23:59 Intake Total 650 / 650 2059 950 / 950 Output Total 450 / 450 Balance 200 / 200 2059 950 / 950 Lab / Micro Data Result Diagrams: 04/07/21 06:05 04/06/21 06:18 Labs: Laboratory Results - last 24 hr 04/07/21 06:05: WBC 13.2 H, RBC 4.33 L, Hgb 13.2, Hct 41.2, MCV 95.2 H, MCH 30.5, MCHC 32.0, RDW Std Deviation 45.1 H, RDW Coeff of Cristofer 12.9, Plt Count 182, MPV 10.9 Micro: Microbiology 04/05/21 12:46 Nasal Secretion SARS-CoV-2 Antigen (Rapid) - Final Physical Exam Narrative General - A&Ox3, NAD. VSS/AF Left lower extremity -incisional dressing C/D/I. T ROM brace in place, locked in extension. SILT Sural, Saphenous, SPN, DPN, Tibial N. distributions. DP, PT 2+. BCR. DF, PF, EHL /5. No calf TTP. Assessment & Plan Assessment/Plan (1) Quadriceps tendon rupture: QUALIFIERS: Encounter type: initial encounter Laterality: left Qualified Code(s): S76.112A - Strain of left quadriceps muscle, fascia and tendon, initial encounter PLAN: POD#1 s/p left quadriceps tendon repair - Pain control - Medicine following for medical management - PT/OT-weightbearing as tolerated left lower extremity with T ROM brace locked in extension at all times, except for hygiene. Knee should be left in full extension if removed for hygiene - DVT PPX -81 mg aspirin twice daily, SCDs, early mobilization - Case management - D/C planning -Disposition pending progress with therapy. Stable from an orthopedic standpoint for discharge. I will sign off. Please do not hesitate to call if any questions or concerns arise. Follow-up in 2.5-3 weeks in my office for staple removal. Wound instructions provided in the discharge paperwork. Oxycodone sent to his pharmacy.
[2021-04-07 07:55] VITALS: PULSE 64
[2021-04-07] MEDS: Metoprolol Tartrate 25 MG Tablet PO (07:55)
[2021-04-07] MEDS: Aspirin E.C. 81 MG Tablet PO (07:55)
[2021-04-07] MEDS: Furosemide 20 MG Tablet PO (07:56)
[2021-04-07] MEDS: Lisinopril 20 MG Tablet PO (07:56)
[2021-04-07 09:06] VITALS: O2SAT 97
--- NOTE | 2021-04-07 10:15 | PCM.DC ---
Discharge Instructions Diet Discharge Diet: No restrictions Activity Discharge Activity: Return to Normal Activity Weight Bearing Status: Weight bearing as tolerated Dressing / Incision Call your doctor if you observe: Fever of 101 or Higher, Numbness or Tingling, Shortness of breath, Dizziness, Chest pain, Increased palpitations (irregular heartbeat) and Calf discomfort Follow Up Care Please Follow Up With: Primary care provider When: Within the next two weeks. Test Results: Test results from this visit will be discussed in further detail at your follow-up appointment, if applicable. Discharge Plan Admission Admit Date/Time: 04/04/21 19:26 Attending Provider: Emily Long Primary Care Provider: Rukhsana Mayfield Consulting Providers: Valentin Doherty Instructions Additional Instructions / Restrictions: Okay to remove surgical dressing and shower 04/11/2021. Cover with dry sterile dressing after shower. No tub soaks. Weightbearing as tolerated left lower extremity with hinged knee brace locked in extension. Remove hinged knee brace for hygiene purposes only. Knee should be maintained in full extension if knee brace is removed. Continue 81 mg aspirin twice daily for DVT prophylaxis Discharge Orders/Prescriptions Prescriptions: New oxycodone 5 mg tablet 5 mg PO Q6H PRN (Reason: pain) 7 Days Qty: 28 RF: 0 Continued acetaminophen 500 mg tablet 1,000 mg PO Q8 PRN (Reason: Pain 1-10 Or Fever) RF: 0 aspirin 81 mg tablet,delayed release (DR/EC) 81 mg PO BID RF: 0 tamsulosin 0.4 mg capsule 0.4 mg PO QHS RF: 0 lisinopril 40 mg tablet 40 mg PO DAILY RF: 0 metoprolol tartrate 25 mg tablet 25 mg PO BID RF: 0 atorvastatin 40 mg tablet 40 mg PO QHS Qty: 90 RF: 4 Referrals / Follow Up: Rukhsana Mayfield MD [Primary Care Provider] - Within 2 Weeks Valentin Doherty DO [STAFF PHYSICIAN] - 04/25/21 Disposition Disposition (needs filled in before D/C Order can be placed): Home, Self Care
--- NOTE | 2021-04-07 10:43 | CASEMGMT ---
Addendum entered by Alanna Chan 04/07/21 11:56: Received tc back from [facility] that they do not have the staffing for pt. TC to [facility], spoke with [place], referral made and accepted. Faxed at this time. NOLVIA YBARRA in to pt room to notify pt and . They verbalize understanding. Original Note: RN TATE in to pt room, pt at bedside. Pt sitting up in bed. Discussed dc planning. Pt prefers HHC vs SNF. Pt states she has concerns of pt going home but he will not go to SNF. Made her aware that therapy recommended HHC. Patient was provided a list of HHC providers including quality and resource use data and consistent with the patient?s preferred geographic region, medical needs, and insurance network. The patient?s preferred provider is [facility]. TC to [place], spoke with Nabila, made referral. She took information and will call back with acceptance.
--- NOTE | 2021-04-07 11:57 | SLEEP ---
I checked the pt's home CPAP machine per his request. He wanted to make sure it is set proplerly. I verified that the pressure settings are set to 18/13. The humidifier setting is at 6. His mask and tubing are in good working order. I answered his questions and asked him to call me if he has any issues.
[2021-04-07 12:30] VITALS: BP 131/94; PULSE 65; RESP 16; TEMP 36.4; O2SAT 97
--- NOTE | 2021-04-07 13:05 | DS.PCM_ITS ---
Documented by User: Norberto FERRER 04/07/21 13:09 Providers Date of Admission: 04/04/21 Primary Care Physician: Dr. Rukhsana Mayfield MD Consultations 04/04/21 20:03 Consult: Orthopedics Routine Consulting Provider: Valentin Doherty Reason for Consult: Suspected quadriceps tendon rupture/tear EMERGENT Consult: No MD Notified: Yes Date Notified: 04/04/21 Time Notified: 21:47 Method of Notification: Text Reason For Visit: SUSPECTED QUADRICEP TENDON RUPTURE Diagnosis Discharge Diagnosis (1) Quadriceps tendon rupture: Status: Acute Code(s): S76.119A - Strain of unspecified quadriceps muscle, fascia and tendon, initial encounter Qualifiers: Encounter type: initial encounter Laterality: left Qualified Code(s): S76.112A - Strain of left quadriceps muscle, fascia and tendon, initial encounter Medications at Discharge Home Medications aspirin 81 mg tablet,delayed release 81 mg PO BID tab 09/07/18 acetaminophen 500 mg tablet 1,000 mg PO Q8 PRN tab 07/25/19 atorvastatin 40 mg tablet 40 mg PO QHS #90 tab 05/20/20 lisinopril 40 mg PO DAILY 04/04/21 metoprolol tartrate 25 mg PO BID 04/04/21 tamsulosin 0.4 mg PO QHS 04/04/21 oxycodone 5 mg PO Q6H PRN 7 Days #28 tab 04/07/21 Hospital Course Summary of Care Provided Minutes Spent on Discharge: 20 Hospital Course: Patient is a 75-year-old male who was admitted to [facility] on 04/05/2021 for evaluation management of fall with associated hemarthrosis. Course and management as below. 1) Falls w/ distal quadraceps tendon tear POD 1 s/p left knee quadraceps tendor repair. Management per orthopedics; weight bearing as tolerated on the LLE, ASA 81mg BID, Maintain surgical silver dressing x7 days, F/U in 3 weeks w/ Dr. Doherty. Follow-up with primary care provider within the next 2 weeks. 2) CAD Status post CABG and bovine aortic valve replacement. Continue lisinopril, atorvastatin aspirin and metoprolol. 3) HTN Stable, continue metoprolol and lisinopril. Patient seen by Norberto Moreno PA-C, under the supervision of Dr. Long. Time spent on patient care: 20 minutes. Physical Exam Narrative Patient is a 75-year-old male comfortably resting in a chair, alert and orient x3. Patient reports that his pain from surgery is appropriately controlled, denies development of any new symptoms overnight. Does not appear in acute distress. Const alert, oriented x3 and no apparent distress HEENT normocephalic, head/scalp atraumatic and hearing grossly normal bilaterally Eyes PERRL, EOMs intact bilaterally and conjunctivae normal Neck no lymphadenopathy, supple and no JVD Resp normal respiratory effort, no retractions and no use of accessory muscles Cardio regular rate, regular rhythm and no JVD GI normal to inspection, nondistended, normoactive bowel sounds Skin no rashes or lesions noted Neuro CN's II-XII intact bilaterally Psych affect normal Weight / BMI Weight Weight: 249 lb Body Mass Index (BMI) 44.1 ABG / Lab / Microbiology Data Result Diagrams: 04/07/21 06:05 04/06/21 06:18 Laboratory: Laboratory Results - last 24 hr 04/07/21 06:05: WBC 13.2 H, RBC 4.33 L, Hgb 13.2, Hct 41.2, MCV 95.2 H, MCH 30.5, MCHC 32.0, RDW Std Deviation 45.1 H, RDW Coeff of Cristofer 12.9, Plt Count 182, MPV 10.9 Microbiology: Microbiology 04/05/21 12:46 Nasal Secretion SARS-CoV-2 Antigen (Rapid) - Final D/C Instructions Discharge Diet: No restrictions Weight Bearing Status: Weight bearing as tolerated Call your doctor if you observe: Fever of 101 or Higher, Numbness or Tingling, Shortness of breath, Dizziness, Chest pain, Increased palpitations (irregular heartbeat) and Calf discomfort Please Follow Up With: Primary care provider When: Within the next two weeks. Meaningful Use Info Meaningful Use Diagnoses (Choose all that apply): None applicable Discharge Plan Admission Admit Date/Time: 04/04/21 19:26 Attending Provider: Emily Long Primary Care Provider: Rukhsana Mayfield Consulting Providers: Valentin Doherty Instructions Additional Instructions / Restrictions: Okay to remove surgical dressing and shower 04/11/2021. Cover with dry sterile dressing after shower. No tub soaks. Weightbearing as tolerated left lower extremity with hinged knee brace locked in extension. Remove hinged knee brace for hygiene purposes only. Knee should be maintained in full extension if knee brace is removed. Continue 81 mg aspirin twice daily for DVT prophylaxis Discharge Orders/Prescriptions Prescriptions: New oxycodone 5 mg tablet 5 mg PO Q6H PRN (Reason: pain) 7 Days Qty: 28 RF: 0 Continued acetaminophen 500 mg tablet 1,000 mg PO Q8 PRN (Reason: Pain 1-10 Or Fever) RF: 0 aspirin 81 mg tablet,delayed release (DR/EC) 81 mg PO BID RF: 0 tamsulosin 0.4 mg capsule 0.4 mg PO QHS RF: 0 lisinopril 40 mg tablet 40 mg PO DAILY RF: 0 metoprolol tartrate 25 mg tablet 25 mg PO BID RF: 0 atorvastatin 40 mg tablet 40 mg PO QHS Qty: 90 RF: 4 Referrals / Follow Up: Rukhsana Mayfield MD [Primary Care Provider] - 04/15/21 10:20 am Valentin Doherty DO [STAFF PHYSICIAN] - 04/25/21 2:00 pm Disposition Disposition (needs filled in before D/C Order can be placed): Home Health Service Documented by User: Dr. Emily Long MD 04/07/21 14:50 Providers Date of Admission: 04/04/21 Reason For Visit: SUSPECTED QUADRICEP TENDON RUPTURE Medications at Discharge Home Medications aspirin 81 mg tablet,delayed release 81 mg PO BID tab 09/07/18 acetaminophen 500 mg tablet 1,000 mg PO Q8 PRN tab 07/25/19 atorvastatin 40 mg tablet 40 mg PO QHS #90 tab 05/20/20 lisinopril 40 mg PO DAILY 04/04/21 metoprolol tartrate 25 mg PO BID 04/04/21 tamsulosin 0.4 mg PO QHS 04/04/21 oxycodone 5 mg PO Q6H PRN 7 Days #28 tab 04/07/21 ABG / Lab / Microbiology Data Result Diagrams: 04/07/21 06:05 04/06/21 06:18 Discharge Plan Admission Admit Date/Time: 04/04/21 19:26 Attending Provider: Emily Long Primary Care Provider: Rukhsana Mayfield Consulting Providers: Valentin Doherty Instructions Additional Instructions / Restrictions: Okay to remove surgical dressing and shower 04/11/2021. Cover with dry sterile dressing after shower. No tub soaks. Weightbearing as tolerated left lower extremity with hinged knee brace locked in extension. Remove hinged knee brace for hygiene purposes only. Knee should be maintained in full extension if knee brace is removed. Continue 81 mg aspirin twice daily for DVT prophylaxis Discharge Orders/Prescriptions Prescriptions: New oxycodone 5 mg tablet 5 mg PO Q6H PRN (Reason: pain) 7 Days Qty: 28 RF: 0 Continued acetaminophen 500 mg tablet 1,000 mg PO Q8 PRN (Reason: Pain 1-10 Or Fever) RF: 0 aspirin 81 mg tablet,delayed release (DR/EC) 81 mg PO BID RF: 0 tamsulosin 0.4 mg capsule 0.4 mg PO QHS RF: 0 lisinopril 40 mg tablet 40 mg PO DAILY RF: 0 metoprolol tartrate 25 mg tablet 25 mg PO BID RF: 0 atorvastatin 40 mg tablet 40 mg PO QHS Qty: 90 RF: 4 Referrals / Follow Up: Rukhsana Mayfield MD [Primary Care Provider] - 04/15/21 10:20 am Valentin Doherty DO [STAFF PHYSICIAN] - 04/25/21 2:00 pm Disposition Disposition (needs filled in before D/C Order can be placed): Home Health Service Charges/Coding Addendum Addendum: Patient seen by Norberto Moreno PA-C under my supervision Patient seen and examined. He was admitted on 04/04/2021 with a complaint of mechanical fall while skating of his tractor. He developed excruciating left knee pain and swelling and could not ambulate or weight-bear. X-ray done in the ED showed a joint effusion of the left knee. Left lower extremity CT showed intramuscular hematoma and orthopedics was consulted. Orthopedics was concerned about quadricep tendon rupture and tendon tear. Patient was therefore admitted to be managed for quadriceps tendon rupture due to mechanical fall. MRI of the left lower extremity demonstrated acute full-thickness rupture of the distal quadriceps tendon with surrounding hematoma and medial capsulitis. Patient had repair of the ruptured quadriceps tendon on 04/06/2021 by orthopedic surgery. He tolerated surgery well and remained stable. He worked with physical therapy and was able to ambulate well. He remained stable and was discharged on 04/07/2021 and is to follow-up with his primary care doctor and orthopedic surgery. Patient seen and examined prior to discharge. He had no active complaints and felt well. Review of systems otherwise negative. Labs and vitals reviewed. Home medication reviewed and reconciled. O/E: Const alert, oriented x3 and no apparent distress HEENT normocephalic, head/scalp atraumatic and hearing grossly normal bilaterally Eyes PERRL, EOMs intact bilaterally and conjunctivae normal Neck no lymphadenopathy, supple and no JVD Resp normal respiratory effort, no retractions and no use of accessory muscles Cardio regular rate, regular rhythm and no JVD GI normal to inspection, nondistended, normoactive bowel sounds Skin no rashes or lesions noted Extremity: LLE knee wrapped in bandage and immobilised in brace Neuro CN's II-XII intact bilaterally Psych affect normal Plan is for discharge home today. He was sent home on p.o. aspirin 81 mg twice daily as per orthopedics for DVT prophylaxis. Rest as per Norberto Moreno PA-C's chart reviewed and endorsed. Total time I spent on patient's care today was 40 minutes with NABIL spending 20 minutes, total time spent was 60 minutes. Visit Charges Inpatient E&M: 51980 Disch Hosp
--- NOTE | 2021-04-11 12:24 | CASEMGMT ---
Addendum entered by Alanna Chan 04/11/21 12:27: TC to [facility], spoke with Ammy, she states pt was admitted to services on 04/08/2021. She states they received orders from the hospital and they do not need anything further at this time. States the physician was called for POC orders after admission. Original Note: Received notification that pt dtr called in asking questions regarding HHC. TC back to dtr Marcia Hanks at [phone], message left on vm.
== END 2021-04-07 12:51 | disposition home health service (06) | DRG 501 ==
LOC: ED 19:35 → MS3 04-05 07:05
PROVIDERS: Physician Assistant; Student in an Organized Health Care Education/Training Program; Admitting Provider Hospitalist; Emergency Provider Student in an Organized Health Care Education/Training Program; PCP Internal Medicine; Visit Provider Student in an Organized Health Care Education/Training Program
PROC: 0LQM0ZZ Repair Left Upper Leg Tendon, Open Approach (ICD-10-PCS; principal; 2021-04-06 07:30)
DX: S76.112A Strain of left quadriceps muscle, fascia and tendon, initial encounter (principal); Z68.41 Body mass index [BMI] 40.0-44.9, adult; E66.01 Morbid (severe) obesity due to excess calories; J44.9 Chronic obstructive pulmonary disease, unspecified; N18.31 Chronic kidney disease, stage 3a; S70.12XA Contusion of left thigh, initial encounter; I12.9 Hypertensive chronic kidney disease with stage 1 through stage 4 chronic kidney disease, or unspecified chronic kidney disease; E78.5 Hyperlipidemia, unspecified; I25.10 Atherosclerotic heart disease of native coronary artery without angina pectoris; W00.2XXA Other fall from one level to another due to ice and snow, initial encounter; M19.90 Unspecified osteoarthritis, unspecified site; N40.1 Benign prostatic hyperplasia with lower urinary tract symptoms; G47.33 Obstructive sleep apnea (adult) (pediatric); Z20.822 Contact with and (suspected) exposure to COVID-19; Z79.82 Long term (current) use of aspirin; Z95.1 Presence of aortocoronary bypass graft; Z95.3 Presence of xenogenic heart valve; Z96.641 Presence of right artificial hip joint; Z85.038 Personal history of other malignant neoplasm of large intestine; Z90.49 Acquired absence of other specified parts of digestive tract
CPT/HCPCS: 36415; 70030; 71045; 73564; 73700; 73721; 80048; 85025; 85027; 86850; 86900; 86901; 87426; 93005; 97162; 97166; 97530; 97535; 99251; 99284; J7120; A4216; C1713; G0463; J2405

== ENCOUNTER 2021-06-04 10:50 | Day surgery (SDC) | payer MEDICARE, SELFPAY ==
--- NOTE | 2021-06-03 10:08 | RAD_ITS ---
STUDY: X-RAY CHEST REASON FOR EXAM: Male, 75 years old. PRE-OP TECHNIQUE: PA and lateral views of the chest. COMPARISON: Comparison is made with prior study dated 04/05/2021. FINDINGS: The lungs are clear and expanded. There is no demonstrated pleural abnormality. Sternal cerclage wires and vascular clips are present from a prior sternotomy and coronary artery bypass graft procedure (CABG). Normal mediastinum and charlie. Normal visualized pulmonary arteries. There is atherosclerotic calcification of the aortic arch with tortuosity. There are diffuse degenerative changes of the visualized thoracic spine. Normal visualized ribs, clavicles, and shoulders. There is no demonstrated abnormality of the visualized soft tissue structures of the upper abdomen. RAD/Chest PA and Lateral IMPRESSION: No acute abnormalities. Electronically Signed: Leonard Hollingsworth MD at 15:44 EDT ,
[2021-06-03 10:34] LABS: Absolute Lymphocyte Count 1.83 X10^3/uL (0.83-4.51); Absolute Neutrophil Count 6.2 X10^3/uL (2.0-7.7); Basophil# 0.06 X10^3/uL; Basophil% 0.7 % (0-1); Eosinophils% 2.2 % (0-5); Hemoglobin 15.6 g/dL (13.0-16.5); Lymphocyte # 1.83 X10^3/ul (0.83-4.51); Mean Corp Hgb Conc 31.2 g/dL (32-36); Mean Corpuscular Hgb 28.9 pg (27.0-32.0); Mean Corpuscular Volume 92.8 fL (80-94); Mean Platelet Vol. 9.6 fl (6.2-12.0); Monocyte# 0.81 X10^3/uL; Monocyte% 8.9 % (0-10); NRBC Flagged by Analyzer 0 % (0-5); Neutrophil # 6.21 X10^3/uL (2.7-7.7); Neutrophil % 67.8 % (47-70); Platelet Count 272 K/mm3 (150-450); RBC Distribution Width CV 13.2 % (11.6-14.6); RBC Distribution Width SD 44.5 fl (35.1-43.9); Red Blood Count 5.39 M/mm3 (4.6-6.2); White Blood Count 9.2 K/mm3 (4.4-11.0)
[2021-06-03 11:01] LABS: Anion Gap 2 (5-15); BUN 19 mg/dL (7-18); BUN/Creat Ratio 15.4 RATIO (10-20); Calcium,Total 9.3 mg/dL (8.5-10.1); Chloride 106 mmol/L (98-107); Creatinine, Serum 1.23 mg/dL (0.70-1.30); EST Glomerular Filtration Rate 61 mL/min (>60); Est Glom Filt Rate - Afr Amer 74 mL/min (>60); Glucose 95 mg/dL (74-106); Potassium 4.6 mmol/L (3.5-5.1); Sodium Level 140 mmol/L (136-145)
[2021-06-04] VITALS (8 sets, daily range): BP systolic 91–125; BP diastolic 55–90; PULSE 77–89; RESP 16–18; TEMP 36.7–36.9; O2SAT 92–98; BMI 43.0
[2021-06-04] MEDS: Cefazolin 2 GM in 0.9% Normal Saline 100 ML IV (12:35)
[2021-06-04] MEDS: Bupivacaine Mpf 0.5% 30 ML VIAL (14:19)
--- NOTE | 2021-06-04 15:12 | PCM.OPRPT ---
Report of Operation Date of Procedure: 06/04/21 Description of Surgical Findings:: Preoperative diagnosis: Left knee quadriceps tendon rerupture Postoperative diagnosis: Left knee quadriceps tendon rerupture Procedure: Left knee quadriceps tendon revision repair Surgeon: Valentin Doherty DO Men'S Garment Fitter: Mckenna Sommer PA-C Anesthesia: General LMA Anesthesiologist: Dr. Tompkins Complications: None apparent Drains: None Estimated blood loss: 50 cc Urinary output: None recorded IV fluids: Per anesthesia record Specimens: None Surgical implants: #5 FiberWire x2 Surgical indications: This is a 75-year-old male who was working on his tractor on 04/04/2021. He reached over to pick something up felt a pop in his left knee. He noted worsening pain and swelling but did finish his daily tasks. He was brought to [facility] emergency department on 04/04/2021. X-rays were relatively unremarkable. A CT scan was performed due to the patient's inability to bear weight and perform straight leg raise. Hematoma was noted but was inconclusive for extensor mechanism injury. He is subsequently admitted for inability to ambulate even with a knee immobilizer. An MRI was obtained 04/05/2021 which demonstrated complete quadriceps tendon rupture with retraction. I recommended open repair of the left quadriceps tendon rupture after seeing the patient in consultation. He underwent uncomplicated left quadriceps tendon repair on 04/06/2021. He was subsequently discharged to home with home health care. Patient was unexplainably discharged from home physical therapy after 3 weeks. He was seen in my office at his first postop visit at approximately 2 weeks postoperatively and wound was benign. At 6-week follow-up, patient had considerable extensor lag and palpable defect in the quadriceps tendon. He states he was unaware that he was to have his knee brace locked and was unsure how to lock it. He also stated his knee buckled approximately 3 weeks prior to his visit and noted some increased pain and swelling at that time. MRI was subsequently performed 2 days ago and demonstrated recurrent quadriceps tendon tear. I recommended revision quadriceps tendon repair. The risk, benefits, alternatives of procedure reviewed with patient at length and he agreed to proceed. Description of procedure: Patient was identified in the preoperative holding area by name, medical record number, and date of . The operative extremity was marked. Informed consent was confirmed with the patient. All questions were answered to his satisfaction. At time of his procedure, patient was brought to the operative suite and positioned supine a standard operating table. All bony prominences were well-padded. General anesthesia was induced with a laryngeal mask airway placed. After adequate anesthesia and securing the tube, a well-padded pneumatic tourniquet was applied to left upper thigh. We then prepped and draped the left lower extremity in a normal, sterile orthopedic fashion after placing a bump under the patient's left hip and elevating the left lower extremity slightly on bath blankets. 2 g Ancef was administered prior to the incision by anesthesia staff. We then performed a timeout with all parties in attendance in agreement with the side, site, and operation be performed. No concerns were voiced and we elected to proceed. I first exsanguinated the left lower extremity and Esmarch bandage. Tourniquet was inflated 280 mmHg. Esmarch was removed. I was able to palpate a defect in the quadriceps tendon. Incision was carried sharply through skin and subcutaneous tissue approximately 10 cm in length overlying the superior third of the patella and the quadriceps tendon. Bursa and fascia was split in line with the incision. I then encountered the retinacular and quadriceps tendon injury. There was a corkscrew suture anchor attached to the tendon stump which had been pulled from the bone. There was a remaining corkscrew anchor embedded within the patella as well as the suture knots overlying the anchor, which were in place. Suture appeared to fail in the lateral construct within this suture mid substance. I then debrided the distal end of the quadriceps tendon removing the remaining fiber tape suture. Adhesions were freed from the overlying bursa to allow for quadriceps tendon excursion. I then placed 2 locking Krak?w sutures through the quadriceps tendon with #5 FiberWire. Remaining corkscrew anchor in the patella was debrided with a curette. I then planned 3 transosseous bone tunnels through the patella. These were drilled with a 2 mm drill bit. Heannalee suture passer was used to pass the medial and lateral most suture tails through the medial and lateral bone tunnels respectively. Central 2 suture tails were then passed through the central bone tunnel. I tied the medial and lateral suture tails to the corresponding central suture tail and then tied both of these suture knots together to reinforce the repair. There was no gap formation at the patella-tendon interface. Repair was tight, but did allow for flexion to approximately 25 degrees. I thoroughly irrigated the wound at this time. I reapproximated some retinacular tears with #1 Vicryl suture, [id number] pattern. I then closed the bursal layer with a running, locking #1 Vicryl suture. Dermis was reapproximated with 2-0 Vicryl suture. Simple 3-0 nylon sutures were used to reapproximate the skin. A silver Bioclusive dressing was applied as well as a modified Cardoso dressing. Patient was then placed in a knee immobilizer. Need for skilled medical receptionist assistant: Mckenna Sommer PA-C was critical to the outcome of the case. During the course of the procedure the physician medical receptionist assistant played a vital role. Her intimate knowledge of my steps in the procedure aided in safe and expedient completion of the procedure. The PA played a vital role in positioning particularly in obtaining the appropriate positioning. The PA was also vital in the retraction of soft tissues during the exposure. She also played a pivotal role in tensioning the quadriceps tendon repair as well as suture passing. She also played a vital role in closure with my direct supervision. Post Operative Plan: Weightbearing: Weightbearing as tolerated left lower extremity -knee immobilizer at all times except for hygiene. Okay to remove dressing on postoperative day #7 and shower. Antibiotics: Ancef 2 g prior to incision DVT Prophylaxis: 81 mg aspirin twice daily, early mobilization Dunlap: None Dressing: Maintain surgical silver dressing x7 days, then okay to remove X-Rays: None Follow-up: 2 weeks in my office
== END 2021-06-04 23:59 | disposition home or self-care (01) ==
LOC: SDC 10:51 → AC 10:52
PROVIDERS: PCP Internal Medicine; Referring Provider Student in an Organized Health Care Education/Training Program; Visit Provider Student in an Organized Health Care Education/Training Program
PROC: (CPT 27386; principal; 2021-06-04 13:15)
DX: S76.112A Strain of left quadriceps muscle, fascia and tendon, initial encounter (principal); Z68.41 Body mass index [BMI] 40.0-44.9, adult; X58.XXXA Exposure to other specified factors, initial encounter; I10 Essential (primary) hypertension; E78.00 Pure hypercholesterolemia, unspecified; G47.33 Obstructive sleep apnea (adult) (pediatric); E66.9 Obesity, unspecified; Z91.19 Patient's noncompliance with other medical treatment and regimen; Z79.82 Long term (current) use of aspirin; Z79.899 Other long term (current) drug therapy; Z95.1 Presence of aortocoronary bypass graft
CPT/HCPCS: 27386; 01250; 36415; 71046; 80048; 85025; J7120; J2405

== ENCOUNTER 2022-05-08 15:04 | Emergency (ER) | payer MEDICARE, SELFPAY ==
[2022-05-08 15:04] VITALS: BP 156/84; PULSE 76; RESP 16; TEMP 36.1; O2SAT 96; BMI 100.5
--- NOTE | 2022-05-08 15:24 | CT_ITS ---
INDICATION: right flank pain EXAMINATION: CT ABDOMEN AND PELVIS WITHOUT CONTRAST - CT Abdomen And Pelvis W/O Contrast Injection TECHNIQUE: Helically acquired images were obtained of the abdomen and pelvis without oral or IV contrast. A radiation dose optimization technique was used for this scan. IV Contrast dosage and agent: None. Oral contrast: None. COMPARISON: None. FINDINGS: LOWER CHEST: Bibasilar dependent and/or fibrotic changes. Calcified granulomas right lung base. No cardiomegaly or pericardial effusion. LIVER: Homogeneous. No focal mass. GALLBLADDER AND BILIARY TREE: Calcified gallstone. No gallbladder distension or wall edema. No intra- or extrahepatic biliary ductal dilation. PANCREAS: No focal cystic or solid mass. SPLEEN: Normal size without focal cystic or solid mass. ADRENAL GLANDS: No nodules. KIDNEYS AND URETERS: No nephrolithiasis bilaterally. High attenuation material at the left lower pole cortex with adjacent fatty stranding. No hydronephrosis bilaterally. PERITONEUM: No ascites or free air. BOWEL: Status post right hemicolectomy. Increased fluid contents of the small bowel in the right mid abdomen with adjacent inflammatory fat stranding. LYMPH NODES: No enlarged mesenteric or retroperitoneal lymph nodes. VESSELS: Aorta is non-dilated. URINARY BLADDER: Minimally distended. REPRODUCTIVE ORGANS: Prostate hypertrophy. BONES: No acute or aggressive abnormality. Right hip prosthesis in place. CT/Abdomen/Pelvis without Cont IMPRESSION: Changes of right hemicolectomy. Severe enteritis involving the small bowel loops in the right mid abdomen with adjacent mesenteric fatty inflammatory changes. Changes to the lower pole left kidney suggesting partial resection. Correlate with surgical history. No obstructive uropathy. Cholelithiasis. No inflammatory changes. Pending Final Proof Editing
--- NOTE | 2022-05-08 15:26 | EX.ED.DYSGE1 ---
HPI History of Present Illness Chief Complaint: Flank Pain Informant: patient and family Narrative Narrative: Patient with right flank pain. It started in the right lower quadrant to the side yesterday. He states it started like a lightning strike. But he has never been nauseated. The pain is much better now. He is not hurting much at this time. But when the pain comes back it does tend to shoot more toward his posterior flank now. He has never been lightheaded or dizzy. Not syncopal or presyncopal. No urinary symptoms at all. He had a bioprosthetic valve done in 96 and is not on any anticoagulation other than baby aspirin daily. He has been moving his bowels normally. No blood in the stool or diarrhea. He does have a history of partial colectomy some years ago she thinks this was for localized cancer as he went never went through chemotherapy or radiation. He has had no complications since that. He still has his appendix and gallbladder. Nothing specifically makes this better or worse. [facility] Medical History Aortic stenosis Arthritis Atherosclerosis of coronary artery of [place] heart without angina pectoris Benign prostatic hyperplasia with lower urinary tract symptoms Cancer Cardiology follow-up encounter COPD (chronic obstructive pulmonary disease) CPAP (continuous positive airway pressure) dependence Essential hypertension History of echocardiogram History of edema History of left heart catheterization (LHC) (~03/18/20) History of pulmonary function tests Hyperlipidemia Non-smoker KAMRAN (obstructive sleep apnea) Severe aortic insufficiency Shortness of breath on exertion Home Medications aspirin 81 mg tablet,delayed release 81 mg PO BID heart [facility] 09/07/18 [History Last Taken 04/04/21] acetaminophen 500 mg tablet 1,000 mg PO Q8 PRN Pain 1-10 Or Fever 07/25/19 [History Last Taken 04/04/21 13:00] atorvastatin 40 mg tablet 40 mg PO QHS CHOLESTEROL #90 tabs 05/20/20 [Rx Last Taken 04/03/21] lisinopril 40 mg tablet 40 mg PO DAILY BP 04/04/21 [History Last Taken 04/04/21] metoprolol tartrate 25 mg tablet 25 mg PO BID HEART 04/04/21 [History Last Taken 04/04/21] ondansetron 4 mg disintegrating tablet 4 mg PO Q8H PRN PRN Nausea #10 tabs 05/08/22 [Rx Last Taken Unknown] tramadol 50 mg tablet 50 mg PO Q8H PRN pain 3 days #8 tabs 05/08/22 [Rx Last Taken Unknown] Allergy/AdvReac Type Severity Reaction Status Date / Time No Known Allergies Allergy Verified 05/08/22 15:07 Family History Father Heart disease Brother Heart disease Brother Colon cancer Surgical History History of aortic valve replacement with bioprosthetic valve (~06/14/14) History of carpal tunnel release History of colonoscopy History of coronary artery bypass graft (06/14/14) History of heart surgery History of knee surgery (~06/04/21) History of open reduction and internal fixation (ORIF) procedure History of partial colectomy (~05/2018) History of right hip replacement (09/28/18) Status post total replacement of right hip Social History Smoking Status: Never smoker alcohol intake: never substance use type: does not use caffeine: No ROS ROS ED Constitutional Constitutional ED: Denies chills, fever(s) or subjective ENT ENT ED: Denies rhinorrhea or sore throat Cardiovascular Cardiovascular: Denies chest pain Respiratory/Chest Respiratory/Chest: Denies cough Gastrointestinal Gastrointestinal: Reports abdominal pain; Denies constipation, diarrhea, melena, nausea or vomiting Genitourinary Genitourinary ED: Denies hematuria or urinary frequency Musculoskeletal Musculoskeletal: Denies myalgias or neck pain Integumentary Denies rash Neurologic Neurologic: Denies paresthesias or weakness Endocrine Endocrinology: Denies polydipsia or polyuria Hematologic/Lymphatic Hematologic/Lymphatic: Denies easy bleeding or easy bruising Allergic/Immunologic Allergic/Immunologic ED: Denies urticaria EXAM Physical Exam Narrative Exam Narrative: Patient is awake alert sitting comfortable in bed no acute distress. He carries on normal conversation. HEENT shows no trauma. Mucous membranes are moist Eyes show no pallor Neck shows no JVD Lungs are clear bilaterally with easy breaths. Saturations normal at 96% on room air showing no hypoxia. Heart is regular. I do not hear any murmur on him despite his prior surgeries and history. Abdomen is somewhat obese but overall benign.'s not distended. Bowel sounds are normal. Small incisional type midline hernia but spontaneously reduces and its only visible with leaning forward. shows no CVA tenderness and no suprapubic tenderness Skin shows no rash pallor no vesicles in the area of pain. Neurologically he is awake alert and appropriate. Const Vital Signs: 05/08/22 15:04 Temperature 97 F L Temperature Source Temporal Pulse Rate 76 Respiratory Rate 16 Blood Pressure 156/84 H Blood Pressure Mean 108 Pulse Ox 96 Oxygen Delivery Method Room Air MDM MDM MDM Narrative Medical decision making narrative: Blood work shows normal CBC including white count hemoglobin and platelets. Electrolytes showed minimal elevation of bicarb which is his normal. Minimal elevation of BUN also which is his normal. Urinalysis shows no sign of infection or blood. My independent interpretation of the CT of the abdomen does show some gallstones but no pericholecystic fluid or inflammation. I do not see signs of kidney stone on the right. There is a bit of stranding of the small bowel on the right which may be the source of his symptoms. I am pending final read at this time. Final read does show similar reading. Patient does admit that he has been constipated recently and straining. This can contribute to this. He has not had no fevers or chills. No blood in the stool. He is not having pain now. He states he needs pain comes off and on. He has never had nausea. I think we can get him home. He will be on a clear liquid diet for few days. I will write him for a Dulcolax here. He will get MiraLAX to take at home. I will write for meds for nausea in case this develops. I will give him a few tramadol but I have encouraged him to try to avoid this because I think we want to get his bowels moving and this can slow him down. We discussed specifics of returning and the need for follow-up even if improving Lab Data Attestation: I reviewed the patient's lab results. Labs: Laboratory Results - last 24 hr 05/08/22 05/08/22 05/08/22 15:50 15:54 15:54 WBC 8.9 RBC 5.34 Hgb 15.8 Hct 50.3 MCV 94.2 H MCH 29.6 MCHC 31.4 L RDW Std Deviation 46.1 H RDW Coeff of Cristofer 13.3 Plt Count 200 MPV 10.0 Immature Gran % (Auto) 0.200 Neut % (Auto) 67.3 Lymph % (Auto) 18.5 L Coleman % (Auto) 12.5 H Eos % (Auto) 1.2 Baso % (Auto) 0.3 Absolute Neuts (auto) 6.0 Absolute Lymphs (auto) 1.65 Nucleated RBC % 0 Sodium 142 Potassium 4.1 Chloride 106 Carbon Dioxide 33.0 H Anion Gap 3 L BUN 24 H Creatinine 1.19 Estim Creat Clear Calc 40.29 Est GFR (MDRD) Af Amer 77 Est GFR (MDRD) Non-Af 63 BUN/Creatinine Ratio 20.2 H Glucose 92 Calcium 9.6 Urine Color Yellow Urine Clarity Clear Urine pH 6.0 Ur Specific [place] 1.020 Urine Protein 15 H Urine Glucose (UA) Normal Urine Ketones Negative Urine Occult Blood Negative Urine Nitrite Negative Urine Bilirubin Negative Urine Urobilinogen Normal Ur Leukocyte Esterase Negative Urine RBC 0 SEEN Urine WBC 0 SEEN Ur Squamous Epith Cells 0 SEEN Urine Bacteria RARE Urine Mucus 0 SEEN Radiography Diagnostic Testing: Clinical Impression(s) from Imaging Studies Abdomen/Pelvis CT 05/08/22 15:24 IMPRESSION: Changes of right hemicolectomy. Severe enteritis involving the small bowel loops in the right mid abdomen with adjacent mesenteric fatty inflammatory changes. Changes to the lower pole left kidney suggesting partial resection. Correlate with surgical history. No obstructive uropathy. Cholelithiasis. No inflammatory changes. Pending Final Proof Editing Management Discussion w/another healthcare provider: Other (Patient and 2 family members.) Discharge Plan Triage Chief Complaint: Flank Pain ED Provider: Leoncio Leigh Dx/Rx/DC Orders Clinical Impression: Abdominal pain, Enteritis, Constipation Instructions: Abdominal Pain, ED Understanding Colitis Prescriptions: New ondansetron [ondansetron] 4 mg tablet,disintegrating 4 mg PO Q8H PRN PRN (Reason: Nausea) Qty: 10 0RF tramadol 50 mg tablet 50 mg PO Q8H PRN (Reason: pain) 3 Days Qty: 8 0RF No Action acetaminophen 500 mg tablet 1,000 mg PO Q8 PRN (Reason: Pain 1-10 Or Fever) Rx Instructions: Do not take more than 3000 mg Tylenol in 24-hour. aspirin 81 mg tablet,delayed release (DR/EC) 81 mg PO BID Label Comments: Pt states per Rocco will continue aspirin lisinopril 40 mg tablet 40 mg PO DAILY Label Comments: TAKE 1 TABLET BY MOUTH ONCE DAILY metoprolol tartrate 25 mg tablet 25 mg PO BID atorvastatin 40 mg tablet 40 mg PO QHS Qty: 90 4RF Primary Care Provider: Rukhsana Mayfield Referrals: Rukhsana Mayfield MD [Primary Care Provider] - 3-5 Days FriendLarry DO [Med Staff - Active Staff] - As soon as possible Activity Restrictions/Additional Instructions: Use MiraLAX to keep bowels regular. Start with clear liquid diet and very slowly advance. Please return with vomiting, fevers, pain, not moving bowels, blood in the stool or any other concerns. Disposition Disposition: Home, Self Care
[2022-05-08 15:56] LABS: Mucous, Urine 0 SEEN /hpf (<or=2+); Red Blood Cells-Urine 0 SEEN /hpf (0-5); Squamous Epithelial Cells - UA 0 SEEN /hpf (0-5); White Blood Cells 0 SEEN /hpf (0-5)
[2022-05-08 15:58] LABS: Color, Urine Yellow (Yellow); Glucose, Dipstick Normal (Normal); Ketone-Dipstick Negative (Negative); Leukocyte Esterase-Dipstick Negative /ul (Negative); Nitrite-Dipstick Negative (Negative); Occult Blood-Urine Negative /ul (Negative); Protein-Dipstick 15 mg/dl (Negative); Urine Bilirubin Dipstick Negative (Negative); Urine Clarity Clear (Clear); Urine Urobilinogen Normal (Normal)
[2022-05-08 16:06] LABS: Absolute Lymphocyte Count 1.65 X10^3/uL (0.83-4.51); Basophil# 0.03 X10^3/uL; Basophil% 0.3 % (0-1); Eosinophil# 0.11 X10^3/uL; Eosinophils% 1.2 % (0-5); Hematocrit 50.3 % (40-54); Hemoglobin 15.8 g/dL (13.0-16.5); Lymphocyte # 1.65 X10^3/ul (0.83-4.51); Lymphocyte % 18.5 % (19-41); Mean Corp Hgb Conc 31.4 g/dL (32-36); Mean Corpuscular Hgb 29.6 pg (27.0-32.0); Mean Corpuscular Volume 94.2 fL (80-94); Monocyte# 1.12 X10^3/uL; Monocyte% 12.5 % (0-10); NRBC Flagged by Analyzer 0 % (0-5); Neutrophil # 6.01 X10^3/uL (2.7-7.7); Neutrophil % 67.3 % (47-70); Platelet Count 200 K/mm3 (150-450); RBC Distribution Width CV 13.3 % (11.6-14.6); RBC Distribution Width SD 46.1 fl (35.1-43.9); Red Blood Count 5.34 M/mm3 (4.6-6.2); White Blood Count 8.9 K/mm3 (4.4-11.0)
[2022-05-08 16:06] LABS: Bacteria RARE /hpf (None Seen)
[2022-05-08 16:18] LABS: Anion Gap 3 (5-15); BUN 24 mg/dL (7-18); BUN/Creat Ratio 20.2 RATIO (10-20); Calcium,Total 9.6 mg/dL (8.5-10.1); Chloride 106 mmol/L (98-107); Creatinine, Serum 1.19 mg/dL (0.70-1.30); EST Glomerular Filtration Rate 63 mL/min (>60); Est Glom Filt Rate - Afr Amer 77 mL/min (>60); Estimated Creatinine Clearance 40.29 ml/min; Glucose 92 mg/dL (74-106); Potassium 4.1 mmol/L (3.5-5.1); Sodium Level 142 mmol/L (136-145)
[2022-05-08 18:05] VITALS: BP 134/78; PULSE 68; RESP 16; TEMP 36.6; O2SAT 99
[2022-05-08] MEDS: Bisacodyl 5 MG Tablet 10 MG PO (18:06)
== END 2022-05-08 18:08 | disposition home or self-care (01) ==
PROVIDERS: Physician Assistant; Emergency Provider Emergency Medicine; PCP Internal Medicine; Visit Provider Emergency Medicine
DX: R10.31 Right lower quadrant pain (principal); K52.9 Noninfective gastroenteritis and colitis, unspecified; K59.00 Constipation, unspecified; J44.9 Chronic obstructive pulmonary disease, unspecified; K80.20 Calculus of gallbladder without cholecystitis without obstruction; I25.10 Atherosclerotic heart disease of native coronary artery without angina pectoris; I10 Essential (primary) hypertension; E78.5 Hyperlipidemia, unspecified; N40.0 Benign prostatic hyperplasia without lower urinary tract symptoms; Z79.82 Long term (current) use of aspirin; Z79.899 Other long term (current) drug therapy; Z96.641 Presence of right artificial hip joint; Z90.49 Acquired absence of other specified parts of digestive tract
CPT/HCPCS: 74176; 80048; 81001; 85025; 99284; J7030; A4216

== ENCOUNTER → 2022-10-07 | Outpatient (CLI) | payer MEDICARE, SELFPAY ==
[2022-10-07 11:14] LABS: Anion Gap 6 (5-15); BNP,B-Type NATRIURETIC PEPTIDE 126.2 pg/mL (0-100); BUN 16 mg/dL (7-18); BUN/Creat Ratio 13.8 RATIO (10-20); Calcium,Total 9.1 mg/dL (8.5-10.1); Chloride 107 mmol/L (98-107); Creatinine, Serum 1.16 mg/dL (0.70-1.30); EST Glomerular Filtration Rate 65 mL/min (>60); Est Glom Filt Rate - Afr Amer 79 mL/min (>60); Glucose 95 mg/dL (74-106); Potassium 4.2 mmol/L (3.5-5.1); Sodium Level 141 mmol/L (136-145)
== END | disposition home or self-care (01) ==
LOC: LAB 10:36
PROVIDERS: PCP Internal Medicine; Referring Provider Nurse Practitioner Family; Visit Provider Nurse Practitioner Family
DX: R06.02 Shortness of breath (principal); I10 Essential (primary) hypertension
CPT/HCPCS: 36415; 80048; 83880

== ENCOUNTER → 2022-12-01 | Outpatient (CLI) | payer MEDICARE, SELFPAY ==
--- NOTE | 2022-12-01 09:01 | ECHOCS_ITS ---
Reason For Study: AVR Procedure This was a 2D Doppler, Color Flow transthoracic echocardiogram. The study was technically difficult. Contrast injection was performed. Exam performed in department. Left Ventricle Normal LV size. Moderate concentric left ventricular hypertrophy. Left ventricular systolic function is normal. The estimated ejection fraction is 65 %. Stage 1 diastolic dysfunction. No regional wall motion abnormalities noted. Right Ventricle Normal RV size. Normal systolic function. Tricuspid Valve Normal tricuspid valve. Mild (1+) tricuspid valve insufficiency. Pulmonary artery systolic pressure is 33 mmHg. Aortic Valve Bioprosthetic aortic valve. Great Vessels Normal aortic root. Pericardium/Pleural No pericardial effusion. Medication 22 gauge I.V. with prn adaptor inserted into left arm. Diluted definity 2.5ml given slow IV push to enhance endocardial definition. MMode/2D Measurements & Calculations LVIDd: 4.1 cm IVSd: 1.8 cm LVOT diam: 2.1 cm LVIDs: 3.0 cm LVPWd: 1.3 cm LVOT area: 3.3 cm2 FS: 25.2 % Ao root diam: 4.0 cm LAV(MOD-bp): 60.5 ml LA dimension: 4.6 cm LVAd ap4: 36.8 cm2 LAV(MOD-bp) Indexed: 29.5 ml/m2 LVLd ap4: 9.1 cm LAV(MOD-sp2): 67.2 ml EDV(MOD-sp4): 119.4 ml LAV(MOD-sp4): 50.4 ml EDV(sp4-el): 126.5 ml LVAs ap4: 22.5 cm2 LVLs ap4: 7.7 cm ESV(MOD-sp4): 57.3 ml ESV(sp4-el): 55.6 ml EF(MOD-sp4): 52.0 % EF(sp4-el): 56.0 % SV(MOD-sp4): 62.1 ml SV(sp4-el): 70.8 ml LA A4 area: 18.0 cm2 TAPSE: 1.3 cm RA A4 area: 15.1 cm2 Time Measurements MV dec time: 0.29 sec Doppler Measurements & Calculations MV E max dominic: 66.0 cm/sec Lat Peak E' Dominic: 6.9 cm/sec Med Peak E' Dominic: 4.5 cm/sec MV A max dominic: 87.7 cm/sec E/E' lat: 9.6 E/E' med: 14.7 MV E/A: 0.75 MV V2 max: 97.9 cm/sec MV P1/2t max dominic: 74.5 cm/sec Ao V2 max: 115.9 cm/sec MV max P.8 mmHg MV P1/2t: 103.7 msec Ao max P.4 mmHg MV V2 mean: 51.6 cm/sec Ao V2 mean: 78.3 cm/sec MV mean P.2 mmHg MV dec slope: 210.4 cm/sec2 Ao mean P.8 mmHg MV V2 VTI: 34.6 cm MVA(P1/2t): 2.1 cm2 Ao V2 VTI: 24.6 cm AV (velocity ratio): 0.63 MVA(VTI): 1.5 cm2 JUVENAL(I,D): 2.1 cm2 JUVENAL(V,D): 1.7 cm2 LV V1 max: 60.6 cm/sec SV(LVOT): 51.0 ml PA V2 max: 50.0 cm/sec LV V1 max P.5 mmHg LV V1 mean P.78 mmHg LV V1 mean: 40.5 cm/sec LV V1 VTI: 15.4 cm TR max dominic: 266.7 cm/sec TR max P.5 mmHg ECHO/Echo Complete W/ Contrast Interpretation Summary Normal LV size. Left ventricular systolic function is normal. The estimated ejection fraction is 65 %. Stage 1 diastolic dysfunction. Moderate concentric left ventricular hypertrophy. Contrast injection was performed. Ordering Physician: Norberto Barragan Referring Physician: ISAI POPE Performed By: Jaciel Burrell RCS
--- NOTE | 2022-12-01 18:39 | STRESSREP ---
Stress Test Report Pharmacologic myocardial perfusion stress test. 77-year-old man with a history of coronary artery disease Resting EKG demonstrates sinus bradycardia with a rate of 56 bpm. Resting blood pressure is 130/88 mmHg. 0.4 mg of regadenoson was infused per usual protocol followed by rapid intravenous saline flush injection. Continuous EKG monitoring was performed. The maximum heart rate was 75 bpm which was 51% of max impacted heart rate the maximum workload was 1 metabolic equivalent. At rest there were no ST or T wave changes noted to suggest ischemia and at peak infusion nonspecific ST changes were noted which did not meet the criteria for ischemia. No clinical angina is noted. The final blood pressure was 118/80 mmHg. Myocardial perfusion protocol. 14.2 mCi of technetium 99m sestamibi was injected at rest. 0.4 mg of regadenoson was infused per usual protocol. At peak infusion 44.5 mCi of technetium 99m sestamibi was injected stress images were obtained stress and rest images were reconstructed and compared in the short axis vertical long and horizontal long axis. Gated images were also obtained. Perfusion SPECT analysis: Review of the stress images demonstrate normal uptake of tracer noted in all areas of the myocardium. The resting images similar demonstrated normal uptake of tracer noted in all areas of the myocardium. No areas of reversibility are noted to suggest ischemia and no previous infarct is noted. Gated SPECT analysis: The gated ejection fraction is 56%. Conclusion: Normal pharmacologic myocardial perfusion stress test. Preserved ejection fraction.
== END | disposition home or self-care (01) ==
PROVIDERS: PCP Internal Medicine; Referring Provider Pharmacist Pharmacist Clinician (PhC)/ Clinical Pharmacy Specialist; Visit Provider Pharmacist Pharmacist Clinician (PhC)/ Clinical Pharmacy Specialist
DX: I27.20 Pulmonary hypertension, unspecified (principal); I25.10 Atherosclerotic heart disease of native coronary artery without angina pectoris; R53.83 Other fatigue; G47.33 Obstructive sleep apnea (adult) (pediatric); Z98.890 Other specified postprocedural states
CPT/HCPCS: 78452; 93017; 93306; A9500; Q9957; A4216; C8929; J2785

== ENCOUNTER → 2023-11-25 | Outpatient (CLI) | payer MEDICARE, SELFPAY ==
[2023-11-25 10:37] LABS: Absolute Lymphocyte Count 1.38 X10^3/uL (0.83-4.51); Absolute Neutrophil Count 3.9 X10^3/uL (2.0-7.7); Basophil# 0.05 X10^3/uL; Basophil% 0.8 % (0-1); Eosinophil# 0.18 X10^3/uL; Eosinophils% 2.9 % (0-5); Hematocrit 46.1 % (40-54); Hemoglobin 14.5 g/dL (13.0-16.5); Lymphocyte # 1.38 X10^3/ul (0.83-4.51); Lymphocyte % 22.5 % (19-41); Mean Corp Hgb Conc 31.5 g/dL (32-36); Mean Corpuscular Hgb 29.8 pg (27.0-32.0); Mean Corpuscular Volume 94.7 fL (80-94); Mean Platelet Vol. 9.9 fl (6.2-12.0); Monocyte% 9.8 % (0-10); NRBC Flagged by Analyzer 0 % (0-5); Neutrophil # 3.87 X10^3/uL (2.7-7.7); Neutrophil % 63.3 % (47-70); Platelet Count 193 K/mm3 (150-450); RBC Distribution Width CV 12.7 % (11.6-14.6); RBC Distribution Width SD 44.4 fl (35.1-43.9); Red Blood Count 4.87 M/mm3 (4.6-6.2); White Blood Count 6.1 K/mm3 (4.4-11.0)
[2023-11-25 11:04] LABS: BNP,B-Type NATRIURETIC PEPTIDE 100.6 pg/mL (0-100)
[2023-11-25 11:17] LABS: Anion Gap 6 (5-15); BUN 23 mg/dL (7-18); BUN/Creat Ratio 17.2 RATIO (10-20); Calcium,Total 9.4 mg/dL (8.5-10.1); Chloride 108 mmol/L (98-107); Creatinine, Serum 1.34 mg/dL (0.70-1.30); EST Glomerular Filtration Rate 55 mL/min (>60); Est Glom Filt Rate - Afr Amer 67 mL/min (>60); Glucose 96 mg/dL (74-106); Sodium Level 142 mmol/L (136-145)
== END | disposition home or self-care (01) ==
LOC: LAB 09:25
PROVIDERS: PCP Internal Medicine; Referring Provider Nurse Practitioner Family; Visit Provider Nurse Practitioner Family
DX: R06.09 Other forms of dyspnea (principal)
CPT/HCPCS: 36415; 80048; 83880; 85025

== ENCOUNTER → 2024-08-10 | Outpatient (CLI) | payer MEDICARE, SELFPAY ==
[2024-08-10 09:58] LABS: Absolute Lymphocyte Count 1.51 X10^3/uL (0.83-4.51); Absolute Neutrophil Count 3.9 X10^3/uL (2.0-7.7); Basophil# 0.04 X10^3/uL; Basophil% 0.6 % (0-1); Eosinophil# 0.14 X10^3/uL; Eosinophils% 2.3 % (0-5); Hematocrit 44.8 % (40-54); Hemoglobin 14.4 g/dL (13.0-16.5); Lymphocyte # 1.51 X10^3/ul (0.83-4.51); Lymphocyte % 24.4 % (19-41); Mean Corp Hgb Conc 32.1 g/dL (32-36); Mean Corpuscular Hgb 29.4 pg (27.0-32.0); Mean Corpuscular Volume 91.4 fL (80-94); Mean Platelet Vol. 9.8 fl (6.2-12.0); Monocyte# 0.55 X10^3/uL; Monocyte% 8.9 % (0-10); NRBC Flagged by Analyzer 0 % (0-5); Neutrophil # 3.93 X10^3/uL (2.7-7.7); Neutrophil % 63.6 % (47-70); Platelet Count 216 K/mm3 (150-450); RBC Distribution Width CV 13.6 % (11.6-14.6); RBC Distribution Width SD 45.7 fl (35.1-43.9); White Blood Count 6.2 K/mm3 (4.4-11.0)
[2024-08-10 10:53] LABS: Anion Gap 10 (5-15); BUN 23 mg/dL (4-19); BUN/Creat Ratio 19.3 RATIO (10-20); Calcium,Total 9.1 mg/dL (7.6-11.0); Carbon Dioxide 26.2 mmol/L (21.0-32.0); Chloride 108 mmol/L (98-108); Creatinine, Serum 1.17 mg/dL (0.70-1.20); EST Glomerular Filtration Rate 65 (>60); Glucose 87 mg/dL (70-99); Potassium 4.5 mmol/L (3.3-5.1); Sodium Level 144 mmol/L (133-145)
== END | disposition home or self-care (01) ==
LOC: LAB 09:28
PROVIDERS: PCP Internal Medicine; Referring Provider Nurse Practitioner Gerontology; Visit Provider Nurse Practitioner Gerontology
DX: R53.83 Other fatigue (principal)
CPT/HCPCS: 36415; 80048; 84443; 85025

== ENCOUNTER → 2024-08-29 | Outpatient (CLI) | payer MEDICARE, SELFPAY ==
--- NOTE | 2024-08-29 12:45 | ECHOCS_ITS ---
Reason For Study Reason For Study: Valve Replacement Eval Procedure This was a 2D Doppler, Color Flow transthoracic echocardiogram. Contrast injection was performed. Exam performed in department. Left Ventricle Normal LV size. Moderate eccentric left ventricular hypertrophy. The left ventricular ejection fraction is 60 %. Stage 1 diastolic dysfunction. No regional wall motion abnormalities noted. Right Ventricle Normal RV size. Normal systolic function. Atria Normal left atrium. Normal right atrium. Mitral Valve There is moderate mitral annular calcification. Tricuspid Valve Normal tricuspid valve. Mild (1+) tricuspid valve insufficiency. Pulmonary artery systolic pressure is 20 mmHg. Aortic Valve The aortic valve is not well visualized. Peak aortic valve gradient 6 mmHg. Mean aortic valve gradient 3 mmHg. Bioprosthetic aortic valve. Great Vessels Normal aortic root. Pericardium/Pleural No pericardial effusion. Medication Diluted definity 2ml given slow IV push to enhance endocardial definition. MMode/2D Measurements & Calculations LVIDd: 2.9 cm IVSd: 1.7 cm LVOT diam: 2.2 cm LVIDs: 2.1 cm LVPWd: 1.3 cm LVOT area: 3.7 cm2 RVDd: 3.3 cm FS: 27.0 % Ao root diam: 3.5 cm LAV(MOD-bp): 48.8 ml LVAd ap4: 33.2 cm2 LAV(MOD-bp) Indexed: 23.7 ml/m2 LVLd ap4: 8.3 cm LAV(MOD-sp2): 45.1 ml EDV(MOD-sp4): 108.2 ml LAV(MOD-sp4): 53.3 ml EDV(sp4-el): 112.4 ml LVAs ap4: 19.7 cm2 LVLs ap4: 7.0 cm ESV(MOD-sp4): 46.3 ml ESV(sp4-el): 47.0 ml EF(MOD-sp4): 57.2 % EF(sp4-el): 58.2 % SV(MOD-sp4): 61.9 ml SV(sp4-el): 65.4 ml LA A4 area: 18.0 cm2 SI(MOD-sp4): 30.1 ml/m2 LA dimension(2D): 5.4 cm RA A4 area: 10.7 cm2 Time Measurements MV dec time: 0.32 sec Doppler Measurements & Calculations MV E max dominic: 75.4 cm/sec Lat Peak E' Dominic: 8.6 cm/sec Med Peak E' Dominic: 6.6 cm/sec MV A max dominic: 123.9 cm/sec E/E' lat: 8.8 E/E' med: 11.4 MV E/A: 0.61 MV V2 max: 113.0 cm/sec Ao V2 max: 123.9 cm/sec MV max P.1 mmHg MV dec slope: 234.2 cm/sec2 Ao max P.2 mmHg MV V2 mean: 70.4 cm/sec Ao V2 mean: 86.1 cm/sec MV mean P.2 mmHg Ao mean P.4 mmHg MV V2 VTI: 34.8 cm Ao V2 VTI: 23.9 cm AV (velocity ratio): 0.82 MVA(VTI): 2.1 cm2 JUVENAL(I,D): 3.0 cm2 JUVENAL(V,D): 2.7 cm2 LV V1 max: 90.1 cm/sec SV(LVOT): 71.4 ml PA V2 max: 72.0 cm/sec LV V1 max P.2 mmHg LV V1 mean P.7 mmHg LV V1 mean: 60.0 cm/sec LV V1 VTI: 19.5 cm TR max dominic: 205.7 cm/sec TR max P.9 mmHg ECHO/Echo Complete W/ Contrast Interpretation Summary Normal LV size. The left ventricular ejection fraction is 60 %. Bioprosthetic aortic valve. Stage 1 diastolic dysfunction. Moderate eccentric left ventricular hypertrophy. Contrast injection was performed. Ordering Physician: Ros Gaitan Referring Physician: Rukhsana Mayfield Performed By: Kristen Barragan, MARTIN, RVT
== END | disposition home or self-care (01) ==
LOC: CVS 12:44
PROVIDERS: PCP Internal Medicine; Referring Provider Nurse Practitioner Gerontology; Visit Provider Nurse Practitioner Gerontology
DX: Z95.3 Presence of xenogenic heart valve (principal)
CPT/HCPCS: 93306; Q9957; A4216; C8929

== ENCOUNTER → 2024-10-10 | Outpatient (CLI) | payer MEDICARE, SELFPAY ==
--- NOTE | 2024-10-10 15:24 | CT_ITS ---
PROCEDURE: EXTREMITY LOWER WITHOUT CONTRA 10/10/2024 REASON FOR EXAM: UNILATERAL PRIMARY OSTEOARTHRITIS, LEFT HIP DECLAN TECHNIQUE: EXTREMITY LOWER WITHOUT CONTRA Coronal and Sagittal reconstruction series were provided. CONTRAST: None One or more dose reduction techniques were used (e.g., Automated exposure control, adjustment of the mA and/or kV according to patient size, use of iterative reconstruction technique). RADIATION DOSE SUMMARY: DLP: 993 mGycm COMPARISON: None FINDINGS: There is severe osteoarthritis of the left hip with joint space narrowing, subcortical cyst formation, and marginal osteophytes. No acute fracture or dislocation is identified. The pelvic bones appear intact. Hardware is noted in the right hip. Adjacent soft tissues are grossly unremarkable. Vascular calcifications are visible. No mass or free fluid is identified in the included portion of the pelvis. CT/Extremity Lower without Contra IMPRESSION: There is severe osteoarthritis of the left hip with joint space narrowing, subc ortical cyst formation, and marginal osteophytes. Reading Location: [facility]
[2024-10-10 16:24] LABS: Hematocrit 48.7 % (40-54); Hemoglobin 15.4 g/dL (13.0-16.5); Immature Granulocytes Count 0.020 X10^3/uL (0.0-0.0); Mean Corp Hgb Conc 31.6 g/dL (32-36); Mean Corpuscular Volume 93.5 fL (80-94); Mean Platelet Vol. 10.4 fl (6.2-12.0); NRBC Flagged by Analyzer 0 % (0-5); Platelet Count 199 K/mm3 (150-450); RBC Distribution Width CV 13.6 % (11.6-14.6); RBC Distribution Width SD 46.6 fl (35.1-43.9); Red Blood Count 5.21 M/mm3 (4.6-6.2); White Blood Count 7.4 K/mm3 (4.4-11.0)
[2024-10-10 17:33] LABS: Magnesium 2.4 mg/dL (1.5-2.2)
[2024-10-10 19:28] LABS: Albumin, Serum 4.2 g/dL (3.4-4.8); Anion Gap 12 (5-15); BUN 18 mg/dL (4-19); BUN/Creat Ratio 14.7 RATIO (10-20); Calcium,Total 9.6 mg/dL (7.6-11.0); Carbon Dioxide 26.7 mmol/L (21.0-32.0); Chloride 104 mmol/L (98-108); Glucose 83 mg/dL (70-99); Potassium 4.7 mmol/L (3.3-5.1)
== END | disposition home or self-care (01) ==
LOC: CT 15:11
PROVIDERS: Anesthesiology; PCP Internal Medicine; Referring Provider Student in an Organized Health Care Education/Training Program; Visit Provider Student in an Organized Health Care Education/Training Program
DX: Z01.818 Encounter for other preprocedural examination (principal); M16.12 Unilateral primary osteoarthritis, left hip
CPT/HCPCS: 36415; 73700; 80048; 82040; 83735; 85025; 87077; 87081

== ENCOUNTER 2024-10-23 14:08 | Observation (INO) | payer MEDICARE, SELFPAY ==
--- NOTE | 2024-09-29 18:25 | PAT.ANESEVAL ---
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 When Was Last Pacemaker Check QUESTION #4 FULL TEXT: You/Your Family Experience fever (hyperthermia) with Anesthesia Last Oral Intake Last Oral intake: Last Oral Intake NPO since Meds taken in AM with sips of water? 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 - oxygen furnace operator: PONV - oxygen furnace operator Female No 09/29/24 09:54 HX of Motion Sickness No 09/29/24 09:54 HX of N/V After Surgery No 09/29/24 09:54 Non-Smoker Yes 09/29/24 09:54 Duration of Surgery greater Yes 09/29/24 09:54 than 60 minutes Number of Risk Factors 2 09/29/24 09:54 PONV Score Moderate Risk 09/29/24 09:54 Height & Weight Height & Weight: Anesthesia: Height & Weight Height 5 ft 1 in 08/10/24 06:37 Respiratory Assessment Respiratory Assessment - oxygen furnace operator: Respiratory Tract Infection Hx - oxygen furnace operator Hx Respiratory Tract Infection No 09/29/24 09:54 STOP Sleep Apnea STOP Sleep Apnea - oxygen furnace operator: STOP Sleep Apnea - oxygen furnace operator Hx Hypertension Yes: on med 09/29/24 09:54 Hx Sleep Apnea Yes 09/29/24 09:54 CPAP Yes 09/29/24 09:54 BIPAP No 09/29/24 09:54 Do you snore loudly (louder than talking or can be heard Do you often feel tired/ fatigued/ sleepy during daytime? Has anyone observed you stop breathing during sleep? STOP Results Positive 09/29/24 09:54 QUESTION #5 FULL TEXT : Do you snore loudly (louder than talking or can be heard through closed doors)? 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 Specify any problems Hx of Preganancy in last 3 N/A 09/29/24 09:54 Months Nurse Filling Out Transfusion JZOLLINGE 09/29/24 09:54 & Questions: Date: 09/29/24 09/29/24 09:54 Time: 10:00 09/29/24 09:54 Patient unable to answer at this time (ie. confused, unrespo /Reproduction History /Reproductive History - oxygen furnace operator: /Reproductive Hx- oxygen furnace operator Hx Now No 09/29/24 09:54 Gestational Age (in weeks): EDC: Hx Hx Para Hx Section SAB No 09/29/24 09:54 [facility] Medical History (Updated 09/29/24 @ 09:54 by Teresita Rodrigues) Cancer History of pulmonary function tests Arthritis Non-smoker CPAP (continuous positive airway pressure) dependence COPD (chronic obstructive pulmonary disease) Shortness of breath on exertion History of edema Cardiology follow-up encounter History of echocardiogram History of left heart catheterization (LHC) (~03/18/20) Benign prostatic hyperplasia with lower urinary tract symptoms Atherosclerosis of coronary artery of [place] heart without angina pectoris Severe aortic insufficiency Aortic stenosis Home Medications ?Medication ?Instructions ?Recorded ?Last Taken ?Type acetaminophen 500 mg tablet 1,000 mg PO Q8 PRN Pain 1-10 Or 07/25/19 04/04/21 13:00 History Fever lisinopril 40 mg tablet 40 mg PO DAILY BP 04/04/21 04/04/21 History atorvastatin 40 mg tablet 40 mg PO QHS CHOLESTEROL #90 tabs 11/24/22 Unknown Rx aspirin 81 mg chewable tablet 81 mg PO BID 05/25/23 Unknown History ergocalciferol (vitamin D2) 50,000 50,000 unit PO QWEEK 05/25/23 Unknown History unit tablet hydrochlorothiazide 12.5 mg capsule 12.5 mg PO DAILY 09/29/24 Unknown History metoprolol tartrate 50 mg tablet 50 mg PO BID 09/29/24 Unknown History Allergy/AdvReac Type Severity Reaction Status Date / Time No Known Allergies Allergy Verified 09/29/24 09:45 Family History Father Heart disease Brother Heart disease Brother Colon cancer Surgical History History of knee surgery (~06/04/21) History of carpal tunnel release History of heart surgery History of colonoscopy History of right hip replacement (09/28/18) Status post total replacement of right hip History of partial colectomy (~05/2018) History of coronary artery bypass graft (06/14/14) History of open reduction and internal fixation (ORIF) procedure Social History Smoking Status: Never smoker alcohol intake: never substance use type: does not use caffeine: No Audit: Pertinent Findings Pertinent Findings EKG Perinent findings: April 05, 2021. Normal sinus rhythm. LVH. T wave abnormality consider lateral ischemia. (See stress test below) Stress test pertinent findings: December 01, 2022. EF of 56%. No areas of reversibility noted to suggest ischemia. No previous infarct. Echo (EF%) pertinent findings: August 29, 2024. EF of 60%. PASP is 20 mmHg. Bioprosthetic aortic valve is present. Peak aortic valve gradient is 6 mmHg. Mean aortic valve gradient is 3 mmHg. Heart catheterization pertinent findings: March 18, 2020. Patient has moderate pulmonary hypertension. Stable/competent appearing bioprosthetic aortic valve apparatus. Double vessel coronary artery disease of the LAD in the OM1 which are not angiographically significant. The SVG to the OM1 is proximally occluded and fills partially distally from the LCA retrograde flow. Recommendation is medical therapy and risk factor modification. Consult pertinent findings: August 10, 2024. Arnie ONTIVEROS-C. 1. Atherosclerosis [place] coronary arteries without angina?chronic-latest stress December 21 showed no ischemia. Patient appears stable at this time. Continue current medical therapy. 2. History of aortic valve replacement with bioprosthetic valve?acute-repeat echo to assess valve (see above). 3. Hypertension?chronic-diastolic blood pressure is elevated in the office today. Blood pressures at home are well-controlled. Continue current medical therapy. 4. Fatigue?acute-check labs. Recommendation Anesthesia Recommendation Anesthesia recommendation: OPTIMIZED for anesthesia
--- NOTE | 2024-10-20 09:42 | RAD_ITS ---
PROCEDURE: CHEST PA AND LATERAL 10/20/2024 REASON FOR EXAM: PRE OP TECHNIQUE: CHEST PA AND LATERAL COMPARISON: June 03, 2021 FINDINGS: Hardware: None Heart: Top-normal heart size. Mitral valve calcification. Prior median sternotomy. Aortic valve replacement. Aortic knob is atherosclerotic. Mediastinum: No mass Lungs: A few scattered granulomas are seen in the hilar regions and the lower lobes. Bones: Degenerative changes are identified within the thoracic spine. RAD/Chest PA and Lateral IMPRESSION: Benign granulomas. No acute cardiopulmonary process. Mitral valve calcification. Aortic valve replacement. Reading Location: [id number]
--- NOTE | 2024-10-20 12:12 | PAT.ANE_ITS ---
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 When Was Last Pacemaker Check QUESTION #4 FULL TEXT: You/Your Family Experience fever (hyperthermia) with Anesthesia Last Oral Intake Last Oral intake: Last Oral Intake NPO since Meds taken in AM with sips of water? 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 Female No 09/29/24 09:54 HX of Motion Sickness No 09/29/24 09:54 HX of N/V After Surgery No 09/29/24 09:54 Non-Smoker Yes 09/29/24 09:54 Duration of Surgery greater Yes 09/29/24 09:54 than 60 minutes Number of Risk Factors 2 09/29/24 09:54 PONV Score Moderate Risk 09/29/24 09:54 Height & Weight Height & Weight: Anesthesia: Height & Weight Height 5 ft 1 in 08/10/24 06:37 Respiratory Assessment Respiratory Assessment - business process analyst: Respiratory Tract Infection Hx - business process analyst Hx Respiratory Tract Infection No 09/29/24 09:54 STOP Sleep Apnea STOP Sleep Apnea - business process analyst: STOP Sleep Apnea - business process analyst Hx Hypertension Yes: on med 09/29/24 09:54 Hx Sleep Apnea Yes 09/29/24 09:54 CPAP Yes 09/29/24 09:54 BIPAP No 09/29/24 09:54 Do you snore loudly (louder than talking or can be heard Do you often feel tired/ fatigued/ sleepy during daytime? Has anyone observed you stop breathing during sleep? STOP Results Positive 09/29/24 09:54 QUESTION #5 FULL TEXT : Do you snore loudly (louder than talking or can be heard through closed doors)? 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: Tobacco Use History - business process analyst Tobacco Use Smoking Status Never smoker 09/29/24 09:54 Hx Tobacco Use No 09/29/24 09:54 Years Smoking Packs Smoked per Day Smoking Cessation Date was within the last 15 years Hx Smoking Cessation Date Hx Smoking Cessation Counseling Hematologic Medial History Hematologic Hx - business process analyst: Hematologic Medical Hx - rn documentation Hx of Blood Transfusion No 09/29/24 09:54 Hx of Transfusion in last 3 No 09/29/24 09:54 Months Date of Last Transfusion (if within last 3 months) Ever experience any problems No 09/29/24 09:54 with transfusion(s)? Specify any problems Hx of Preganancy in last 3 N/A 09/29/24 09:54 Months Nurse Filling Out Transfusion JZOLLINGE 09/29/24 09:54 & Questions: Date: 09/29/24 09/29/24 09:54 Time: 10:00 09/29/24 09:54 Patient unable to answer at this time (ie. 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: /Reproductive Hx- business process analyst Hx Now No 09/29/24 09:54 Gestational Age (in weeks): EDC: Hx Hx Para Hx Section SAB No 09/29/24 09:54 Active Medications Active Medications: Current Medications Generic Name Dose Route Start Last Admin Trade Name Freq PRN Reason Stop Dose Admin Acetaminophen 1,000 mg 10/23/24 10:00 Acetaminophen 500 Mg Tablet PO 10/23/24 10:01 PREOP ONE Celecoxib 400 mg 10/23/24 10:00 Celecoxib 200 Mg Capsule PO 10/23/24 10:01 PREOP ONE Sodium Chloride 77.9 ml/ 0 ml 10/23/24 10:00 Ropivacaine 200 mg/ OPERA.SITE 10/23/24 10:01 Epinephrine HCl 0.6 mg/ INTRAOP ONE Ketorolac Tromethamine 30 mg/ Morphine Sulfate 5 mg Dexamethasone Sodium Phosphate 10 mg 10/23/24 10:00 Dexamethasone 10 Mg/Ml Vial IV 10/23/24 10:01 INTRAOP ONE Gabapentin 600 mg 10/23/24 10:00 Gabapentin 600 Mg Tablet PO 10/23/24 10:01 PREOP ONE Lactated Ringer's 1,000 mls @ 999 mls/hr 10/23/24 10:00 IV 10/23/24 11:00 .Q1H1M DENA Cefazolin Sodium 2 gm/ Sodium 110 mls @ 150 mls/hr 10/23/24 10:00 Chloride IV 10/23/24 10:43 INTRAOP ONE Tranexamic Acid 1,000 mg/ 110 mls @ 660 mls/hr 10/23/24 10:00 Sodium Chloride IV 10/23/24 10:09 INTRAOP ONE Tranexamic Acid 1,000 mg/ 110 mls @ 660 mls/hr 10/23/24 11:00 Sodium Chloride IV 10/23/24 11:09 INTRAOP ONE Lactated Ringer's 1,000 mls @ 999 mls/hr 10/23/24 11:00 IV 10/23/24 12:00 .Q1H1M DENA Lactated Ringer's 1,000 mls @ 125 mls/hr 10/23/24 12:00 IV 10/23/24 19:59 .Q8H DENA Insulin Human Lispro 1 - 6 unit 10/23/24 10:00 Insulin Lispro 100 Unit/Ml Insuln.Pen SC 10/23/24 16:00 Q4H PRN PRN BG>/= 180, SEE PROTOCOL Protocol PFSH Medical History (Updated 09/29/24 @ 09:54 by Teresita Rodrigues) Cancer History of pulmonary function tests Arthritis Non-smoker CPAP (continuous positive airway pressure) dependence COPD (chronic obstructive pulmonary disease) Shortness of breath on exertion History of edema Cardiology follow-up encounter History of echocardiogram History of left heart catheterization (LHC) (~03/18/20) Benign prostatic hyperplasia with lower urinary tract symptoms Atherosclerosis of coronary artery of [place] heart without angina pectoris Severe aortic insufficiency Aortic stenosis Home Medications ?Medication ?Instructions ?Recorded ?Last Taken ?Type acetaminophen 500 mg tablet 1,000 mg PO Q8 PRN Pain 1- 10 Or 07/25/19 04/04/21 13:00 History Fever lisinopril 40 mg tablet 40 mg PO DAILY BP 04/04/21 0 04/04/21 History atorvastatin 40 mg tablet 40 mg PO QHS CHOLESTEROL #90 tabs 11/24/22 Unknown Rx aspirin 81 mg chewable tablet 81 mg PO BID 05/25/23 Un known History ergocalciferol (vitamin D2) 50,000 50,000 unit PO QWEE K 05/25/23 Unknown History unit tablet hydrochlorothiazide 12.5 mg capsule 12.5 mg PO DAILY 0 09/29/24 Unknown History metoprolol tartrate 50 mg tablet 50 mg PO BID 09/29/24 Unknown History Allergy/AdvReac Type Severity Reaction Status Date / Time No Known Allergies Allergy Verified 09/29/24 09:45 Family History Father Heart disease Brother Heart disease Brother Colon cancer Surgical History History of knee surgery (~06/04/21) History of carpal tunnel release History of heart surgery History of colonoscopy History of right hip replacement (09/28/18) Status post total replacement of right hip History of partial colectomy (~05/2018) History of coronary artery bypass graft (06/14/14) History of open reduction and internal fixation (ORIF) procedure Social History Smoking Status: Never smoker alcohol intake: never substance use type: does not use caffeine: No Audit: Pertinent Findings HISTORY of Pertinent Findings History of Pertinent Findings: EKG Pertinent Findings EKG Perinent findings April 05, 2021. Normal 09/29/24 18:34 sinus rhythm. LVH. T wave abnormality consider lateral ischemia. (See stress test below) Stress Test Pertinent Findings Stress test pertinent findings December 01, 2022. EF of 56%. 09/29/24 18:28 No areas of reversibility noted to suggest ischemia. No previous infarct. Echo Pertinent Findings Echo (EF%) pertinent findings August 29, 2024. EF of 60%. 09/29/24 18:28 PASP is 20 mmHg. Bioprosthetic aortic valve is present. Peak aortic valve gradient is 6 mmHg. Mean aortic valve gradient is 3 mmHg. Heart Catheterization Pertinent Findings Heart catheterization March 18, 2020. Patient 09/29/24 18:34 pertinent findings has moderate pulmonary hypertension. Stable/ competent appearing bioprosthetic aortic valve apparatus. Double vessel coronary artery disease of the LAD in the OM1 which are not angiographically significant. The SVG to the OM1 is proximally occluded and fills partially distally from the LCA retrograde flow. Recommendation is medical therapy and risk factor modification. Consult Pertinent Findings Consult pertinent findings August 10, 2024. Arnie VIERA 09/29/24 18:38 . 1. Atherosclerosis [place] coronary arteries without angina?chronic-latest stress December 21 showed no ischemia. Patient appears stable at this time. Continue current medical therapy. 2. History of aortic valve replacement with bioprosthetic valve?acute- repeat echo to assess valve (see above). 3. Hypertension?chronic- diastolic blood pressure is elevated in the office today . Blood pressures at home are well-controlled. Continue current medical therapy. 4. Fatigue?acute-check labs . Pertinent Findings EKG Perinent findings: October 11, 2024. Normal sinus rhythm. Left ventricular hypertrophy with repolarization abnormality. Compared to EKG of April 05, 2021, T wave abnormality indicating lateral ischemia is no longer seen. Current Visit Impressions Current Visit Impressions: Clinical Impression(s) from Imaging Studies Chest X-Ray 10/20/24 09:42 IMPRESSION: Benign granulomas. No acute cardiopulmonary process. Mitral valve calcification. Aortic valve replacement. Reading Location: [id number] Recommendation Anesthesia Recommendation Anesthesia recommendation: OPTIMIZED for anesthesia
[2024-10-23] VITALS (17 sets, daily range): BP systolic 70–129; BP diastolic 55–75; PULSE 62–86; RESP 14–20; TEMP 36.2–36.7; O2SAT 94–98; BMI 44.7; BMI 46.3
[2024-10-23] MEDS: LR 1,000 ML - BOLUS PREOP 999 ML IV (08:49)
[2024-10-23] MEDS: Magnesium 1 GM over 15 mins IV (08:50)
--- NOTE | 2024-10-23 09:32 | PRE.ANES_ITS ---
ASA Classification* ASA Classification ASA Classification: 3 Assessment & Plan Anesthesia* Anesthesia Assessment Anesthesia Assessment: Discussed sedation and/or anesthesia options, risks, benefits, and alternatives with patient/parents/legal guardian/POA. Questions invited. The patient/parents/legal guardian/POA seems to understand and agrees to proceed with anesthesia plan. Reviewed the physical assessment, medical history, allergy history and patient home medications list prior to surgery/procedure/anesthetic and documented any changes. Performed airway and anesthesia risk assessments. Anesthesia Type Anesthesia Type: MAC and Spinal History Source History Obtained from:: Patient and Chart Anesthesia Focused Assessment* Temperature: 97.7 F Pulse Rate: 62 Blood Pressure: 129/75 Respiratory Rate: 18 Pulse Ox: 97 Oxygen Delivery Method: Room Air Airway Assessment Mouth opens: 2 cm Mallampati Score: III Teeth Condition: Intact Neck Range of motion (ROM): Full ROM Labs Anesthesia Preop lab: CBC WBC 7.4 K/mm3 (4.4-11.0) 10/10/24 15:14 10/10/24 RBC 5.21 M/mm3 (4.6-6.2) 10/10/24 15:14 10/10/24 Hgb 15.4 g/dL (13.0-16.5) 10/10/24 15:14 10/10/24 Hct 48.7 % (40-54) 10/10/24 15:14 10/10/24 Plt Count 199 K/mm3 (150-450) 10/10/24 15:14 10/10/24 CHEMISTRY Potassium 4.7 mmol/L (3.3-5.1) 10/10/24 15:14 10/10/24 Sodium 143 mmol/L (133-145) 10/10/24 15:14 10/10/24 Magnesium 2.4 mg/dL (1.5-2.2) H 10/10/24 15:14 10/10/24 BUN 18 mg/dL (4-19) 10/10/24 15:14 10/10/24 Creatinine 1.25 mg/dL (0.70-1.20) H 10/10/24 15:14 Glucose 83 mg/dL (70-99) 10/10/24 15:14 10/10/24 POC Glucose 105 mg/dL (70-110) 09/28/18 07:13 09/28/18 TSH 2.220 uIU/mL (0.300-4.200) 08/10/24 09:33 07/30 04/25 COAG PT 13.3 SECONDS (11.7-14.9) 03/18/20 04:50 Pre-Assessment Diagnosis/Proposed Procedure Planned Operative Procedure(s): (L) Total Hip Replacement Robotic Arm Assist Anesthesia History Anesthesia History - secondary set up man: Anesthesia History - secondary set up man Hx Hospitalization No 09/29/24 09:54 Any Problems With Anesthesia No 09/29/24 09:54 Cholinesterase deficiency No 09/29/24 09:54 You/Your Family Experience No 09/29/24 09:54 fever (hyperthermia) with Relationship Recent Exposure to Contagious No 10/23/24 08:27 Disease Does patient have nerve No 09/29/24 09:54 stimulator Patient instructed to have device shut off --Does patient have Pacemaker No 10/23/24 08:27 or ICD? When Was Last Pacemaker Check QUESTION #4 FULL TEXT: You/Your Family Experience fever (hyperthermia) with Anesthesia Last Oral Intake Last Oral intake: Last Oral Intake NPO since 06:00 10/23/24 08:27 Meds taken in AM with sips of Yes 10/23/24 08:27 water? Meds patient instructed to see medlist 10/23/24 08:27 take am of surgery PONV PONV - secondary set up man: PONV - secondary set up man Female No 09/29/24 09:54 HX of Motion Sickness No 09/29/24 09:54 HX of N/V After Surgery No 09/29/24 09:54 Non-Smoker Yes 09/29/24 09:54 Duration of Surgery greater Yes 09/29/24 09:54 than 60 minutes Number of Risk Factors 2 09/29/24 09:54 PONV Score Moderate Risk 09/29/24 09:54 Height & Weight Height & Weight: Anesthesia: Height & Weight Height 5 ft 2 in 10/23/24 08:27 Weight: 111 kg 10/23/24 08:27 Body Mass Index (BMI) 44.7 10/23/24 08:27 Respiratory Assessment Respiratory Assessment - secondary set up man: Respiratory Tract Infection Hx - secondary set up man Hx Respiratory Tract Infection No 09/29/24 09:54 STOP Sleep Apnea STOP Sleep Apnea - secondary set up man: STOP Sleep Apnea - secondary set up man Hx Hypertension Yes: on med 09/29/24 09:54 Hx Sleep Apnea Yes 09/29/24 09:54 CPAP Yes 09/29/24 09:54 BIPAP No 09/29/24 09:54 Do you snore loudly (louder than talking or can be heard Do you often feel tired/ fatigued/ sleepy during daytime? Has anyone observed you stop breathing during sleep? STOP Results Positive 09/29/24 09:54 QUESTION #5 FULL TEXT : Do you snore loudly (louder than talking or can be heard through closed doors)? 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 Specify any problems Hx of Preganancy in last 3 N/A 09/29/24 09:54 Months Nurse Filling Out Transfusion [email or web address] 09/29/24 09:54 & Questions: Date: 09/29/24 09/29/24 09:54 Time: 10:00 09/29/24 09:54 Patient unable to answer at this time (ie. confused, unrespo /Reproduction History /Reproductive History - secondary set up man: /Reproductive Hx- secondary set up man Hx Now No 09/29/24 09:54 Gestational Age (in weeks): EDC: Hx Hx Para Hx Section SAB No 09/29/24 09:54 Active Medications Active Medications: Current Medications Generic Name Dose Route Start Last Admin Trade Name Freq PRN Reason Stop Dose Admin Acetaminophen 1,000 mg 10/23/24 10:00 10/23/24 08:50 Acetaminophen 500 Mg Tablet PO 10/23/24 10:01 1,000 mg PREOP ONE Administration Celecoxib 400 mg 10/23/24 10:00 10/23/24 08:50 Celecoxib 200 Mg Capsule PO 10/23/24 10:01 400 mg PREOP ONE Administration Sodium Chloride 77.9 ml/ 0 ml 10/23/24 10:00 Ropivacaine 200 mg/ OPERA.SITE 10/23/24 10:01 Epinephrine HCl 0.6 mg/ INTRAOP ONE Ketorolac Tromethamine 30 mg/ Morphine Sulfate 5 mg Dexamethasone Sodium Phosphate 10 mg 10/23/24 10:00 Dexamethasone 10 Mg/Ml Vial IV 10/23/24 10:01 INTRAOP ONE Gabapentin 600 mg 10/23/24 10:00 10/23/24 08:50 Gabapentin 600 Mg Tablet PO 10/23/24 10:01 600 mg PREOP ONE Administration Lactated Ringer's 1,000 mls @ 999 mls/hr 10/23/24 10:00 10/23/24 08:49 IV 10/23/24 11:00 999 mls/hr .Q1H1M DENA Administration Cefazolin Sodium 2 gm/ Sodium 110 mls @ 150 mls/hr 10/23/24 10:00 Chloride IV 10/23/24 10:43 INTRAOP ONE Tranexamic Acid 1,000 mg/ 110 mls @ 660 mls/hr 10/23/24 10:00 Sodium Chloride IV 10/23/24 10:09 INTRAOP ONE Tranexamic Acid 1,000 mg/ 110 mls @ 660 mls/hr 10/23/24 11:00 Sodium Chloride IV 10/23/24 11:09 INTRAOP ONE Lactated Ringer's 1,000 mls @ 999 mls/hr 10/23/24 11:00 IV 10/23/24 12:00 .Q1H1M DENA Lactated Ringer's 1,000 mls @ 125 mls/hr 10/23/24 12:00 IV 10/23/24 19:59 .Q8H DENA Magnesium Sulfate 1 gm/ 102 mls @ 408 mls/hr 10/23/24 10:00 10/23/24 09:10 Dextrose IV 10/23/24 10:14 Infused PREOP ONE Infusion Insulin Human Lispro 1 - 6 unit 10/23/24 10:00 Insulin Lispro 100 Unit/Ml Insuln.Pen SC 10/23/24 16:00 Q4H PRN PRN BG>/= 180, SEE PROTOCOL Protocol PFSH Medical History (Updated 09/29/24 @ 09:54 by Teresita Rodrigues) Cancer History of pulmonary function tests Arthritis Non-smoker CPAP (continuous positive airway pressure) dependence COPD (chronic obstructive pulmonary disease) Shortness of breath on exertion History of edema Cardiology follow-up encounter History of echocardiogram History of left heart catheterization (LHC) (~03/18/20) Benign prostatic hyperplasia with lower urinary tract symptoms Atherosclerosis of coronary artery of [place] heart without angina pectoris Severe aortic insufficiency Aortic stenosis Home Medications ?Medication ?Instructions ?Recorded ?Last Taken ?Type acetaminophen 500 mg tablet 1,000 mg PO Q8 PRN Pain 1- 10 Or 07/25/19 10/18/24 History Fever lisinopril 40 mg tablet 40 mg PO DAILY BP 04/04/21 0 10/23/24 History atorvastatin 40 mg tablet 40 mg PO QHS CHOLESTEROL #90 tabs 11/24/22 10/22/24 Rx aspirin 81 mg chewable tablet 81 mg PO BID 05/25/23 History ergocalciferol (vitamin D2) 50,000 50,000 unit PO QWEE K 05/25/23 10/22/24 History unit tablet hydrochlorothiazide 12.5 mg capsule 12.5 mg PO DAILY 0 09/29/24 10/22/24 History metoprolol tartrate 50 mg tablet 50 mg PO BID 09/29/24 10/23/24 History Allergy/AdvReac Type Severity Reaction Status Date / Time No Known Allergies Allergy Verified 10/23/24 08:26 Family History Father Heart disease Brother Heart disease Brother Colon cancer Surgical History History of knee surgery (~06/04/21) History of carpal tunnel release History of heart surgery History of colonoscopy History of right hip replacement (09/28/18) Status post total replacement of right hip History of partial colectomy (~05/2018) History of coronary artery bypass graft (06/14/14) History of open reduction and internal fixation (ORIF) procedure Social History Smoking Status: Never smoker alcohol intake: never substance use type: does not use caffeine: No Review of Systems (Anesthesia) ROS Narrative System reviewed and no additional complaints, except as documented. Physical Exam Const alert and oriented x3 Orientation / Consciousness: awake Resp normal respiratory effort and normal air movement Cardio regular rate and regular rhythm Back/Spine normal ROM
[2024-10-23] MEDS: Midazolam 2 MG/2 ML Syringe IV (10:32)
[2024-10-23] MEDS: Cefazolin 1 GM/5 ML Vial 2 GM IV (10:41)
[2024-10-23] MEDS: Lactated Ringers 1,000 ML 1000 ML IV (10:41)
[2024-10-23] MEDS: TRANEXAMIC ACID 1,000 MG/10 ML ML 2000 MG IV (13:21)
[2024-10-23] MEDS: JPS (Morphine 10mg/ml) OPERA.SITE (13:42)
--- NOTE | 2024-10-23 14:06 | RAD_ITS ---
PROCEDURE: HIP MIN 2 VIEWS (PORTABLE) 10/23/2024 REASON FOR EXAM: POST OP TECHNIQUE: HIP MIN 2 VIEWS (PORTABLE) Laterality: COMPARISON: 09/28/2018. FINDINGS: Status post left hip arthroplasty with surrounding soft tissue swelling and air which is expected postsurgically. Prior right hip arthroplasty. RAD/Hip Min 2 Views (Portable) IMPRESSION: Intact bilateral hip arthroplasties. Reading Location: [id number]
--- NOTE | 2024-10-23 14:09 | PCM.POST.ANE ---
Anesthesia: Postop Eval I Current Vital Signs Temperature: 97.8 F Pulse Rate: 79 Blood Pressure: 70/55 Respiratory Rate: 20 Pulse Ox: 97 Assessment Airway patent: Yes Spontaneous unlabored respirations: Yes nausea: No Vomiting: No Anesthesia Complication: No Fluid Hydration Crystalloid volume administer (ml): 1,500 Total IV fluid infused: 1,500 Progress Note Anesthesia document: Postop Eval 1 completed: Yes
[2024-10-23] MEDS: LR 1,000 ML - BOLUS POSTOP 999 ML IV (14:32)
--- NOTE | 2024-10-23 15:10 | OP.PCM_ITS ---
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 Fourdrinier: Mckenna Sommer Tasks completed by assistant professor: Opening & closing, Implanting device and Retracting Additional quality assistant?: No Type of Anesthesia: Spinal RN Documented Start/Stop Times: Operation Date: 10/23/24 10:15 Case Time Into Pre-Op 10/23/24 08:04 Anesthesia Start 10/23/24 10:41 Into Room 10/23/24 10:41 Procedure Start 10/23/24 11:17 Procedure End 10/23/24 13:58 Anesthesia End 10/23/24 14:05 Out of Room 10/23/24 14:05 Into Recovery 10/23/24 14:10 Procedure Start Time: 11:17 Procedure Stop Time: 13:58 Select all DRAINS/GRAFTS/IMPLANTS that apply: Implanted device Implanted device details: Hancock insignia size 5 high offset hip stem, Biolox delta ceramic V40 femoral head outer diameter 36 mm +5 mm neck length, Trident 2 TriTanium cluster hole acetabular shell 54 mm, Trident X.3 10 degree polyethylene insert 36 mm inner diameter, 6.5 mm low-profile hex head screw 6.5 x 20 mm Estimated Blood Loss: 300 cc Specimen collected: No Description of surgery: I greeted the patient in same-day surgery holding area the day of surgery. He was identified by name, medical record number, and date of . All questions were answered to patient satisfaction. The operative extremity was marked with a surgical marker. Informed consent was confirmed with the patient. Patient underwent spinal anesthetic in the PACU prior to the procedure. At time of his procedure, patient brought the operative suite and positioned supine ini tially on a standard operating table. Gentle MAC anesthesia was administered. Patient was then positioned in a lateral decubitus position with the left side up. An axillary roll was placed under the patient's left axilla. The left fibular head was free. We then prepped and draped the left lower extremity in normal, sterile orthopedic fashion. Prior to the procedure, the [facility] plan was reviewed and appeared appropriate based on the patient's CT scan and anatomy. We performed a timeout with all parties in attendance in agreement with the side, site, and operation to be performed. No concerns were voiced and would like to proceed. 1 g TXA IV as well as 2 g Ancef was administered prior to the incision by anesthesia staff. 1 g TXA IV was administered at time of closure additionally. I first elected to place our pelvic array with a curvilinear incision over the iliac crest just posterior to the ASIS. I bluntly dissected down the level of the periosteum. I then drilled 3 intracortical pins with excellent cortical purchase. Pelvic array was then assembled and positioned appropriately. I then turned my attention to the hip. A standard posterior lateral incision was made curvilinear over the posterior lateral hip, centered on the tip of the greater trochanter. Full-thickness skin incision was made, approximately 12 cm in length. I sharply dissected down the level of the fascia brian. Fascia brian was then incised in line with the incision. I bluntly dissected through the raphae of the gluteus oly. Femoral checkpoint was placed at this point. We then registered her femoral anatomy prior to dislocating the hip. I then internally rotated the hip. Limited gluteal bursectomy was performed to identify the short external rotators. A Cobra retractor was placed in his gluteus medius. Short external rotators were taken down with Bovie cautery and tagged for later repair with #2 Ethibond suture. This identified the underlying capsule. A hockey- stick shaped capsulotomy was made over the femoral neck carried posteriorly to the acetabular labrum. Labrum was released and the hip was dislocated. I then marked a standard femoral neck cut 1 fingerbreadth above the lesser trochanter. Sagittal saw was used to carefully cut the femoral neck. Femoral head was removed and examined and appeared benign. It was sent to pathology per hospital policy. I then turned my attention to the acetabulum. Cobra retractors were placed anterior and posteriorly. Self-retaining retractor was placed superiorly. Acetabular labrum was excised with a long handled knife. Acetabular pulmonary was excised with Bovie cautery. Hemostasis was excellent at this point. I then registered the acetabulum with the [email or web address] robot successfully. I then brought in the Abhijit robot with the acetabular reaming arm to a size 58. This was reamed and the planned position to the planned depth. Reamer was then removed. There was excellent bleeding bone at the base and excellent remaining anterior posterior randhawa of the acetabulum. 54 mm acetabular component was selected for and attached to the rate inserter arm of the robot. I placed the acetabular component near planned position before attaching to the robot. The robot then held the cuff in position while I impacted it to an appropriate depth. The acetabular cup was then removed from the robotic arm. It had excellent rim fit. I then selected a 10 degree posterior lipped liner and impacted this per account information clerk recommendations. I then turned my attention to the femur. Box chisel was then utilized to gain access to the femoral canal. Canal finder was placed. Sequential broaches were used and press-fit manner. A final size 3 achieved excellent vertical and rotational stability. We then trialed with with a high offset hip stem as trialed. A + 2.5 and +5 mm neck length were trialed. The +5 mm neck achieved greater stability and was selected for. Trials were then removed. We copiously irrigated the wound. A 3-minute dilute sterile Betadine A size 3 stem was then impacted with excellent fixation. Final head was then impacted over clean, dry Oshea taper neck. Final reduction was performed. A posterior capsular repair was performed with #2 Ethibond suture and bone tunnels, as well as the short external rotator repair. Femoral checkpoint was removed. Pelvic array pins were removed. IT band was closed watertight with #1 strata fix suture. Deeper fascial layers were closed with 0 Vicryl suture in interrupted fashion. Subcutaneous layers were reapproximated with 2-0 Vicryl suture and skin reappr oximated with running subcuticular 3?0 strata fix and skin glue. Pelvic array incision was closed with buried 2-0 Vicryl suture and skin glue.. A silver dressing was applied. Patient tolerated procedure well without complication. He was positioned back in the supine position on his hospital bed. He was transferred to PACU in stable condition. A pillow was placed between the patient's leg to be present while he is in bed. Need for skilled quality assistant: Mckenna Sommer PA-C was critical to the outcome of the case. During the course of the procedure the physician quality assistant played a vital role. Her intimate knowledge of my steps in the procedure aided in safe and expedient completion of the procedure. The PA played a vital role in positioning particularly in obtaining the appropriate positioning. The PA was also vital in the retraction of soft tissues during the exposure and projecting vital structures. The PA was also vital and protecting soft tissues during times of bony cuts. She also played a vital role in closure with my direct supervision. The PA was also important during reduction and dislocation of the joint and trials intraoperatively. Post Operative Plan: Patient will be placed in observation overnight given his multiple comorbidities and advanced age. Plan for discharge to home likely tomorrow. Weightbearing: Weightbearing as tolerated left lower extremity, posterior hip precautions. Pillows between legs while in bed Antibiotics: Ancef 1 g every 8 hours x 3 doses DVT Prophylaxis: Aspirin 81 mg twice daily to start tomorrow Dunlap: None Dressing: Maintain silver dressing x 5 days X-Rays: PACU x-rays were reviewed demonstrated well-positioned left total hip arthroplasty implant. Follow-up 2-week x-rays in the office. Follow-up: 2 weeks in my office as scheduled Surgical Findings: Severe left hip osteoarthritis. Stable left hip following final reduction Complications Complications: No Admit VTE Documentation VTE Present on Admission: No VTE Mechan Device Prophylaxis: SCD's and Knee High CHRISTI Hose VTE Pharm Prophylaxis ordered?: Yes
--- NOTE | 2024-10-23 16:16 | POSTOPAN2_ITS ---
Anesthesia Postop Eval I Sum Postop Eval Completion status Anesthesia document: Postop Eval 1 completed: Yes Anesthesia Postop Eval I Summary Anesthesia Postop Eval I Summary: Anesthesia Postop Eval I: Assessment Summary Airway patent Yes 10/23/24 14:09 [email or web address] Spontaneous unlabored Yes 10/23/24 14:09 [email or web address] respirations Mental status nausea No 10/23/24 14:09 [email or web address] [email or web address] Vomiting No 10/23/24 14:09 [email or web address] Anesthesia Postop Eval I: Fluid Summary Crystalloid volume administer 1,500 10/23/24 14:09 [email or web address] (ml) Colloids volume administered ( ml) Blood Product volume administered (ml) Total IV fluid infused 1,500 10/23/24 14:09 [email or web address] Anesthesia Postop Eval I: Summary Notes Anesthesia Complication No 10/23/24 14:09 [email or web address] Anesthesia Complication Comment: Post-operative progress note Anesthesia: Postop Eval II Evaluation Mental status: Awake Pain Level: 0 nausea: No Vomiting: No Complications Anesthesia Complication: No
--- NOTE | 2024-10-23 16:16 | PCM.POSTANE2 ---
Anesthesia Postop Eval I Sum Postop Eval Completion status Anesthesia document: Postop Eval 1 completed: Yes Anesthesia Postop Eval I Summary Anesthesia Postop Eval I Summary: Anesthesia Postop Eval I: Assessment Summary Airway patent Yes 10/23/24 14:09 [email or web address] Spontaneous unlabored Yes 10/23/24 14:09 [email or web address] respirations Mental status nausea No 10/23/24 14:09 [email or web address] Vomiting No 10/23/24 14:09 [email or web address] Anesthesia Postop Eval I: Fluid Summary Crystalloid volume administer 1,500 10/23/24 14:09 [email or web address] (ml) Colloids volume administered ( ml) Blood Product volume administered (ml) Total IV fluid infused 1,500 10/23/24 14:09 [email or web address] Anesthesia Postop Eval I: Summary Notes Anesthesia Complication No 10/23/24 14:09 [email or web address] Anesthesia Complication Comment: Post-operative progress note Anesthesia: Postop Eval II Evaluation Mental status: Awake Pain Level: 0 nausea: No Vomiting: No Complications Anesthesia Complication: No
[2024-10-23] MEDS: LR 1,000 ML - 125 ML/HR (POST BOLUS) POST OP IV (17:51)
[2024-10-23] MEDS: Cefazolin 1 GM/50 ML BAG IV (17:51)
[2024-10-23] MEDS: Ensure Surgery 237 ML LIQUID PO (17:52)
[2024-10-23] MEDS: Senna/Docusate Sodium 1 Tablet 2 TABLET PO (21:56)
--- NOTE | 2024-10-23 22:10 | PCM.CONS.GEN ---
Assessment & Plan Assessment/Plan (1) Atherosclerosis of coronary artery of [place] heart without angina pectoris: QUALIFIERS: Coronary Disease-Associated Artery/Lesion type: [place] artery Qualified Code(s): I25.10 - Atherosclerotic heart disease of [place] coronary artery without angina pectoris PLAN: Plan # History of CABG and AV valve replacement -History of CABG and bioprosthetic arctic valve 2014 -Continue statin, continue beta-amanda -Resume aspirin when okay to do so by primary service #Hypertension - Blood pressure low, patient presently not symptomatic but will hold home antihypertensives to allow room for pain control - Resume as blood pressure tolerates # Left hip osteoarthritis -Status post robotic arm assisted left total hip arthroplasty with Dr. Doherty 10/23/2024 -PT/OT -Management/pain management per primary #DVT ppx: Timing and agent at discretion of primary Lottie Do MD Time spent in the patient's overall evaluation, decision-making process, review of diagnostic data, adjustment of management, discussion with other providers, nursing and ancillary staff involved in patient's care documentation, 16 minutes HPI Consult Data Date of Consult: 10/23/24 HPI Narrative Reason for Consultation: Postop medical management HPI Narrative: HOMEJavi VELA, is a 78-year-old male history of bioprosthetic aortic valve, CABG, morbid obesity, KAMRAN, hypertension who presented to [facility] 10/23/2024 for left total hip arthroplasty. Hospitalist consulted for postop medical management. Patient evaluated bedside. He reports some tingling feeling in his left foot and feeling like his sock is bunched up, has not drastically changed postoperatively, denies any other new or acute complaints. No nausea, no chest pain or shortness of breath. Reports he felt a little lightheaded earlier postop but now that feeling is resolved [facility] Medical History (Updated 09/29/24 @ 09:54 by Teresita Rodrigues) Aortic stenosis Arthritis Atherosclerosis of coronary artery of [place] heart without angina pectoris Benign prostatic hyperplasia with lower urinary tract symptoms Cancer Cardiology follow-up encounter COPD (chronic obstructive pulmonary disease) CPAP (continuous positive airway pressure) dependence History of echocardiogram History of edema History of left heart catheterization (LHC) (~03/18/20) History of pulmonary function tests Non-smoker Severe aortic insufficiency Shortness of breath on exertion Home Medications ?Medication ?Instructions ?Recorded ?Last Taken ?Type acetaminophen 500 mg tablet 1,000 mg PO Q8 PRN Pain 1-10 Or 07/25/19 10/18/24 History Fever lisinopril 40 mg tablet 40 mg PO DAILY BP 04/04/21 10/23/24 History atorvastatin 40 mg tablet 40 mg PO QHS CHOLESTEROL #90 tabs 11/24/22 10/22/24 Rx aspirin 81 mg chewable tablet 81 mg PO BID 05/25/23 10/16/24 History ergocalciferol (vitamin D2) 50,000 50,000 unit PO QWEEK 05/25/23 10/22/24 History unit tablet hydrochlorothiazide 12.5 mg capsule 12.5 mg PO DAILY 09/29/24 10/22/24 History metoprolol tartrate 50 mg tablet 50 mg PO BID 09/29/24 10/23/24 History CPAP - Continuous Positive Airway 10/23/24 Unknown History Pressure([facility] INFORMATIONAL USE ONLY) Allergy/AdvReac Type Severity Reaction Status Date / Time No Known Allergies Allergy Verified 10/23/24 08:26 Family History (Reviewed 08/10/24 @ 09:22 by Ros Gaitan BURN OUT SCARFING OPERATOR, BURN OUT SCARFING OPERATOR-C) Father Heart disease Brother Heart disease Brother Colon cancer Surgical History (Reviewed 08/10/24 @ 09:22 by Ros Gaitan BURN OUT SCARFING OPERATOR, BURN OUT SCARFING OPERATOR-C) History of carpal tunnel release History of colonoscopy History of coronary artery bypass graft (06/14/14) History of heart surgery History of knee surgery (~06/04/21) History of open reduction and internal fixation (ORIF) procedure History of partial colectomy (~05/2018) History of right hip replacement (09/28/18) Status post total replacement of right hip Social History Smoking Status: Never smoker alcohol intake: never substance use type: does not use caffeine: No ROS ROS Narrative ROS reviewed and pertinent positive and negatives as above Physical Exam Narrative General: Alert, oriented, no apparent distress HEENT: Atraumatic, normocephalic Eyes: extraocular movements grossly intact Neck: Supple Respiratory: normal respiratory effort, no wheezes or rhonchi Cardiovascular: regular rate and rhythm GI: nondistended Extremities: Moving all extremities Neuro: No overt focal neurological deficits, moving both lower extremities Psych: Cooperative Imaging Radiology Impression Hip X-Ray 10/23/24 14:06 IMPRESSION: Intact bilateral hip arthroplasties. Reading Location: [id number] Charges/Coding Visit Charges Office Visits / Consults: 79231 OV L2 Est 10min
[2024-10-24 00:30] VITALS: BP 92/63; PULSE 77; RESP 16; TEMP 36.4; O2SAT 95
[2024-10-24 02:40] VITALS: BP 91/66; PULSE 77; RESP 16; TEMP 36.6; O2SAT 96
[2024-10-24] MEDS: Cefazolin 1 GM/50 ML BAG IV (02:41)
[2024-10-24 06:47] VITALS: BP 93/65; PULSE 73; RESP 16; TEMP 36.5; O2SAT 96
--- NOTE | 2024-10-24 07:20 | PCM.PN.HOSP ---
Reason for Visit Chief Complaint: Left hip pain Subjective Subjective Patient is postop day 1. States he is feeling fairly well. Denies any significant complaints at this time. States his pain is well-controlled. Anxious to go home later today if possible. Objective Data Objective Data Vital Signs: Vital Signs Temp Pulse Resp BP Pulse Ox O2 Del Method O2 Flow Rate 97.7 F L 73 16 93/65 96 Nasal Cannula 2 10/24/24 06:47 10/24/24 06:47 10/24/24 06:47 10/24/24 06:47 10/24/24 06:47 10/24/24 06:47 10/24/24 06:47 Oxygen Flow Rate (L/min) 2 Oxygen Delivery Method Nasal Cannula Weight: 114.759 kg Body Mass Index (BMI) 46.3 Intake & Output: Intake and Output for Last 24 Hours 10/22/24 10/23/24 10/24/24 23:59 23:59 23:59 Intake Total 2752 / 2752 1050 / 1050 Output Total 300 / 300 Balance 2452 / 2452 1050 / 1050 Lab / Micro Data 10/24/24 07:18 10/24/24 07:18 Radiography Diagnostic Testing: Radiology Impression Hip X-Ray 10/23/24 14:06 IMPRESSION: Intact bilateral hip arthroplasties. Reading Location: [facility] Physical Exam Const alert, oriented x3, no apparent distress and well nourished; Negative for average body habitus or healthy appearing Constitutional Narrative: Elderly white male, sitting up in a chair at the bedside, appears comfortable, nontoxic, at the bedside HEENT head/scalp atraumatic HEENT Narrative: Mallampati 3-4, no thrush Head and Scalp: normocephalic Resp normal respiratory effort, no retractions, no use of accessory muscles and clear to auscultation bilaterally Auscultation: Negative for rales, rhonchi or wheezes Cardio regular rate, regular rhythm, S1 normal heart sound, S2 normal heart sound, no murmurs, no rub, no gallops and no clicks GI normal to inspection, nondistended, normoactive bowel sounds, soft to palpation and non-tender GI Narrative: Protuberant abdomen Extremity Extremity Narrative: CHRISTI hose bilateral lower extremities, pedal pulses 2+, no clubbing or cyanosis, no significant edema Neuro oriented x3 and no focal motor deficits Speech: speech normal Psych affect normal Psych Narrative: Very pleasant Assessment & Plan Assessment/Plan (1) S/P total left hip arthroplasty: PLAN: Plan Left hip osteoarthritis - Postop day 1 status post robotic arm assisted left total hip arthroplasty with Dr. Doherty - Continue pain management per primary service - Continue bowel regimen - PT/OT - Weightbearing as tolerated CAD/essential hypertension/aortic valve stenosis - History of CABG and AV valve replacement in 2014 - Blood pressure is somewhat soft postoperatively so we will continue to hold antihypertensives - At discharge will restart metoprolol and lisinopril later this week and hydrochlorothiazide early next week -Discharge orders were placed to reflect this Vitamin D deficiency - Restart ergocalciferol discharge Constipation - Continue home medication KAMRAN - Continue CPAP BPH with obstruction - Patient is not on any medications at this time - Monitor postoperatively especially with narcotic use History of colon cancer - Remote and stable Osteoarthritis - with previous right hip replacement, left knee replacement DVT prophylaxis - per primary service Disposition: - Patient appears to be medically stable for discharge. Labs are stable. Patient is hemodynamically stable other than some mildly low blood pressures related to anesthesia and narcotics. Will restart metoprolol at discharge, lisinopril later this week and HCTZ early next week. Discharge orders were placed to reflect this. Will sign off. Please reconsult if needed. Charges/Coding Visit Charges Inpatient E&M: 87782 Subs Hosp L2
[2024-10-24] MEDS: Ensure Surgery 237 ML LIQUID PO (07:34)
[2024-10-24 07:40] LABS: Hematocrit 42.0 % (40-54); Hemoglobin 13.6 g/dL (13.0-16.5); Immature Granulocytes Count 0.070 X10^3/uL (0.0-0.0); Mean Corp Hgb Conc 32.4 g/dL (32-36); Mean Corpuscular Volume 92.7 fL (80-94); Mean Platelet Vol. 10.6 fl (6.2-12.0); NRBC Flagged by Analyzer 0 % (0-5); Platelet Count 177 K/mm3 (150-450); RBC Distribution Width CV 13.2 % (11.6-14.6); RBC Distribution Width SD 44.7 fl (35.1-43.9); Red Blood Count 4.53 M/mm3 (4.6-6.2); White Blood Count 15.2 K/mm3 (4.4-11.0)
[2024-10-24 08:21] LABS: Anion Gap 12 (5-15); BUN 28 mg/dL (4-19); BUN/Creat Ratio 22.5 RATIO (10-20); Calcium,Total 8.7 mg/dL (7.6-11.0); Carbon Dioxide 24.3 mmol/L (21.0-32.0); Chloride 103 mmol/L (98-108); Estimated Creatinine Clearance 55.49 ml/min (50-250); Glucose 148 mg/dL (70-99); Potassium 4.6 mmol/L (3.3-5.1)
[2024-10-24] MEDS: Senna/Docusate Sodium 1 Tablet 2 TABLET PO (10:58)
--- NOTE | 2024-10-24 11:20 | DS.PCM_ITS ---
Providers Date of Admission: 10/23/24 Date of Discharge: 10/24/24 Primary Care Physician: Dr. Rukhsana Mayfield MD Consultations 10/23/24 14:08 Consult: Hospitalist Routine Consulting Provider: Lottie Do Reason for Consult: Post op medical management, s/p L total hip EMERGENT Consult: No MD Notified: Yes Date Notified: 10/23/24 Time Notified: 16:02 Method of Notification: Text Reason For Visit: Total Hip Replacement Robotic Arm Assist Diagnosis Discharge Diagnosis (1) Atherosclerosis of coronary artery of [place] heart without angina pectoris: Status: Chronic Code(s): I25.10 - Atherosclerotic heart disease of [place] coronary artery without angina pectoris Qualifiers: Coronary Disease-Associated Artery/Lesion type: [place] artery Qualified Code(s): I25.10 - Atherosclerotic heart disease of [place] coronary artery without angina pectoris (2) S/P total left hip arthroplasty: Status: Acute Code(s): Z96.642 - Presence of left artificial hip joint Plan: 1. Will continue PT today. Weightbearing as tolerated. Use walker as needed. Posterior hip precautions x 6 weeks. 2. plan for discharge this afternoon following PT 3. Patient will follow up for post op appointment as previously scheduled in 2 weeks 4. Patient has outpatient PT appointment on as previously scheduled 5. WBC 15.2 acute reactive leukocytosis: secondary to pre operative decadron. no acute systemic signs of infection. will monitor, and likely self resolve. 6. H/H 13.6/42.0: post operavtive anemia secondary to acute blood loss intraoperatively. Patient is asymptomatic at this time. No intraoperative complications. will continue to monitor. no acute interventions. 7. DVT prophylaxis : Aspirin 81 mg twice daily x 4 weeks 8. Pain control: patient instructed to take tylenol 500mg 2 tablets TID. and oxycodone 1-2 tablets every 4-6 hours only as needed for pain control. 9. Patient also given a prescription of doxycycline 100 mg twice daily x 1 week due to elevated BMI. 10. ok to remove post op dressing. post op day 5 Medications at Discharge Home Medications acetaminophen 500 mg tablet 1,000 mg PO Q8 PRN Pain 1-10 Or Fever 07/25/19 Held on 10/24/24. Instructions: Resume on 11/24/24. lisinopril 40 mg tablet 40 mg PO DAILY BP 04/04/21 atorvastatin 40 mg tablet 40 mg PO QHS CHOLESTEROL #90 tabs 11/24/22 aspirin 81 mg chewable tablet 81 mg PO BID 05/25/23 Held on 10/24/24. Instructions: Resume on 11/24/24. ergocalciferol (vitamin D2) 50,000 unit tablet 50,000 unit PO QWEEK 05/25/23 hydrochlorothiazide 12.5 mg capsule 12.5 mg PO DAILY 09/29/24 metoprolol tartrate 50 mg tablet 50 mg PO BID 09/29/24 CPAP - Continuous Positive Airway Pressure([facility] INFORMATIONAL USE ONLY) 10/23/24 acetaminophen 500 mg tablet 1,000 mg (2 x 500 mg) PO Q8 #180 tabs 10/24/24 aspirin 81 mg chewable tablet 81 mg PO BIDCM 4 weeks #56 tabs 10/24/24 doxycycline hyclate 100 mg tablet 100 mg PO BID 7 days #14 tabs 10/24/24 meloxicam 7.5 mg tablet 7.5 mg PO BID #60 tabs 10/24/24 oxycodone 5 mg tablet 5 - 10 mg (1 - 2 x 5 mg) PO Q4H PRN PRN Pain Score 4-10 7 days #30 tabs 10/24/24 sennosides 8.6 mg-docusate sodium 50 mg tablet (Stimulant Laxative Plus) 2 tab PO BID #14 tabs 10/24/24 Hospital Course Operations total hip replacement (Left) Summary of Care Provided Hospital Course: Patient is s/p left sided total hip arthroplasty with Dr. Doherty 10/23/2024. Patient resting comfortably in bed. Rates pain 2/ 10 . States taking Tylenol and oxycodone as needed and ice help to relieve pain. Patient has been up with therapy. Walking with the assit of a walker. Afebrile, no chest pain, shortness of breath, negative calf pain/ erythema, and no other signs of DVT. Physical Exam Narrative Patient resting comfortably in bed No signs of acute distress 2 L nasal cannula. Limb is warm to touch, Sensation intact throughout entire lower extremity, including saphenous, sural, superficial and deep peroneal, and tibial distribution. DP/PT pulses bounding. Dorsiflexion plantarflexion strength 5/5 Dressing clean dry intact Calf nontender to palpation, no erythema, no edema. Negative Homans Weight / BMI Weight Weight: 114.759 kg Body Mass Index (BMI) 46.3 ABG / Lab / Microbiology Data 10/24/24 07:18 10/24/24 07:18 Laboratory: Laboratory Results - last 24 hr 10/24/24 07:18: WBC 15.2 H, RBC 4.53 L, Hgb 13.6, Hct 42.0, MCV 92.7, MCH 30.0, MCHC 32.4, RDW Std Deviation 44.7 H, RDW Coeff of Cristofer 13.2, Plt Count 177, MPV 10.6, Immature Gran % (Auto) 0.500, Neut % (Auto) 83.5 H, Lymph % (Auto) 8.1 L, [place] % (Auto) 7.8, Eos % (Auto) 0.0, Baso % (Auto) 0.1, Absolute Neuts (auto) 12.7 H, Absolute Lymphs (auto) 1.23, Nucleated RBC % 0, Sodium 139, Potassium 4.6, Chloride 103, Carbon Dioxide 24.3, Anion Gap 12, BUN 28 H, Creatinine 1.26 H, Estim Creat Clear Calc 55.49, Est GFR (MDRD) Non-Af 59 L, BUN/Creatinine Ratio 22.5 H, Glucose 148 H, Calcium 8.7 Radiography Diagnostic Testing: Radiology Impression Hip X-Ray 10/23/24 14:06 IMPRESSION: Intact bilateral hip arthroplasties. Reading Location: [id number] D/C Instructions Discharge Activity: May Shower Weight Bearing Status: Weight bearing as tolerated (Posterior hip fracture 6 weeks) Keep extremity elevated above heart level: Operative Extremity Call your doctor if your incision/area has: Continuous Slow Oozing, Sudden Increased Bleeding, Increased Pain/ Swelling, Increased Redness, Foul Smelling Discharge and Swelling at the incision site Call your doctor if you observe: Fever of 101 or Higher, Inability to urinate, Inability to have a bowel movement, Chest pain, Increased palpitations (irregular heartbeat), Calf discomfort and Uncontrolled pain Remove Dressing in: 1 week Cleanse incision/area with: Soap & Water and Keep Dressing Clean & Dry DC O2, CPAP, BIPAP Needs Home O2 Discharge instructions: No DC home with Oxygen: No When: 2 weeks as previously scheduled Meaningful Use Info Meaningful Use Meaningful Use Diagnoses (Choose all that apply): None applicable Discharge Plan Admission Admit Date/Time: 10/23/24 14:08 Attending Provider: Valentin Doherty Primary Care Provider: Rukhsana Mayfield Consulting Providers: Lottie Do; Anne Hogan Discharge Orders/Prescriptions Prescriptions: New acetaminophen 500 mg Tablet 1,000 mg PO Q8 Qty: 180 0RF aspirin 81 mg Tablet,Chewable 81 mg PO BIDCM 28 Days Qty: 56 0RF meloxicam 7.5 mg Tablet 7.5 mg PO BID Qty: 60 0RF oxycodone 5 mg Tablet 5 - 10 mg PO Q4H PRN PRN (Reason: Pain Score 4-10) 7 Days Qty: 30 0RF sennosides-docusate sodium [Stimulant Laxative Plus] 8.6-50 mg Tablet 2 tab PO BID Qty: 14 0RF doxycycline hyclate 100 mg tablet 100 mg PO BID 7 Days Qty: 14 0RF Continued atorvastatin 40 mg tablet 40 mg PO QHS Qty: 90 4RF ergocalciferol (vitamin D2) 50,000 unit tablet 50,000 unit PO QWEEK lisinopril 40 mg tablet 40 mg PO DAILY Patient Comments: TAKE 1 TABLET BY MOUTH ONCE DAILY metoprolol tartrate 50 mg tablet 50 mg PO BID hydrochlorothiazide 12.5 mg capsule 12.5 mg PO DAILY CPAP - Continuous Positive Airway Pressure([facility] INFORMATIONAL USE ONLY) Patient Comments: patient does not know current setting Held acetaminophen 500 mg tablet 1,000 mg PO Q8 PRN (Reason: Pain 1-10 Or Fever) Hold Instructions: Resume on 11/24/24. Rx Instructions: Do not take more than 3000 mg Tylenol in 24-hour. aspirin 81 mg tablet,chewable 81 mg PO BID Hold Instructions: Resume on 11/24/24. Referrals / Follow Up: Rukhsana Mayfield MD [Primary Care Provider] - Disposition Disposition (needs filled in before D/C Order can be placed): Home, Self Care
--- NOTE | 2024-10-24 12:49 | CASEMGMT ---
Pt has an order for DC placed. RN CM to the pt room at this time. Pt sitting up in the chair and is A&Ox4 and is calm. Pt states that he lives at home with his and that she will be his ride home today. Pt states that he feels safe returning home today. Pt states that he has a FWW. Pt states that he has an OP PT appt scheduled for through Ortho and denies needs. Pt states that he plans to follow up with ortho as an OP in 2 weeks as scheduled. Pt denies any further DC needs. Pt's RN updated.
--- NOTE | 2024-10-24 14:00 | PHA.DC_ITS ---
Pharmacy [place] Med Reconciliation Pharmacy Service has performed discharge medication reconciliation for this patient. Medication education papers prepared, patient discharged before counseling was attempted. The patient's discharge medication list was reviewed for discrepancies and discrepancies were resolved. Medications at Discharge Home Medications acetaminophen 500 mg tablet 1,000 mg PO Q8 PRN Pain 1-10 Or Fever 07/25/19 Held on 10/24/24. Instructions: Resume on 11/24/24. lisinopril 40 mg tablet 40 mg PO DAILY BP 04/04/21 atorvastatin 40 mg tablet 40 mg PO QHS CHOLESTEROL #90 tabs 11/24/22 aspirin 81 mg chewable tablet 81 mg PO BID 05/25/23 Held on 10/24/24. Instructions: Resume on 11/24/24. ergocalciferol (vitamin D2) 50,000 unit tablet 50,000 unit PO QWEEK 05/25/23 hydrochlorothiazide 12.5 mg capsule 12.5 mg PO DAILY 09/29/24 metoprolol tartrate 50 mg tablet 50 mg PO BID 09/29/24 CPAP - Continuous Positive Airway Pressure([facility] INFORMATIONAL USE ONLY) 10/23/24 acetaminophen 500 mg tablet 1,000 mg (2 x 500 mg) PO Q8 #180 tabs 10/24/24 aspirin 81 mg chewable tablet 81 mg PO BIDCM 4 weeks #56 tabs 10/24/24 doxycycline hyclate 100 mg tablet 100 mg PO BID 7 days #14 tabs 10/24/24 meloxicam 7.5 mg tablet 7.5 mg PO BID #60 tabs 10/24/24 oxycodone 5 mg tablet 5 - 10 mg (1 - 2 x 5 mg) PO Q4H PRN PRN Pain Score 4-10 7 days #30 tabs 10/24/24 sennosides 8.6 mg-docusate sodium 50 mg tablet (Stimulant Laxative Plus) 2 tab PO BID #14 tabs 10/24/24
== END 2024-10-24 13:22 | disposition home or self-care (01) ==
LOC: SDC 14:21 → MS3 14:21
PROVIDERS: Admitting Provider Student in an Organized Health Care Education/Training Program; PCP Internal Medicine; Referring Provider Student in an Organized Health Care Education/Training Program; Visit Provider Student in an Organized Health Care Education/Training Program
PROC: 8E0Y0CZ Robotic Assisted Procedure of Lower Extremity, Open Approach (ICD-10-PCS; CPT 27130; principal; 2024-10-23 09:45)
DX: M16.12 Unilateral primary osteoarthritis, left hip (principal); J44.9 Chronic obstructive pulmonary disease, unspecified; E66.01 Morbid (severe) obesity due to excess calories; Z68.42 Body mass index [BMI] 45.0-49.9, adult; Z79.82 Long term (current) use of aspirin; I25.10 Atherosclerotic heart disease of native coronary artery without angina pectoris; Z79.899 Other long term (current) drug therapy; E78.00 Pure hypercholesterolemia, unspecified; N40.1 Benign prostatic hyperplasia with lower urinary tract symptoms; Z95.2 Presence of prosthetic heart valve; G47.33 Obstructive sleep apnea (adult) (pediatric); Z95.1 Presence of aortocoronary bypass graft; I10 Essential (primary) hypertension; E55.9 Vitamin D deficiency, unspecified; N13.8 Other obstructive and reflux uropathy; K59.00 Constipation, unspecified
CPT/HCPCS: 27130; S2900; 01214; 36415; 71046; 73502; 80048; 82962; 85025; 94668; 96361; 96365; 96366; 97162; 97166; 97530; 99221; C1776; G0378; J2405; J3475